=== PATIENT | female | born 2005 | race Caucasian/White ===

== ENCOUNTER 2025-01-02 17:38 | Outpatient (CLI) | payer OTHER, SELFPAY ==
[2025-01-02] VITALS (27 sets, daily range): BP systolic 131–157; BP diastolic 79–99; PULSE 95–113; O2SAT 97–100; BMI 45.8
--- OUTSIDE RECORDS SUMMARY | 2025-01-02 17:43 | XMS_ITS | Data Portability ---
Author Organization [place] [employer], Main Office Address [address] [place] [address] Assessment Encounter Date Assessment Date Assessment LastModified by Organization Details LastModified Time 01/04/2023 01/04/2023 RUQ tenderness, postprandial pain. US was unremarkable. Discussed options with patient. Will order HIDA scan and f/u after results obtained. Not available 01/04/2023 12:24:20 01/20/2023 01/20/2023 right upper quadrant pain associated with meals. HIDA scan does show a low ejection fraction of 8% associated with gallbladder and biliary dyskinesia. Options discussed with patient and family. We will schedule for robotic assisted possible open cholecystectomy . Risks and benefits were discussed. Risks include bleeding, infection bile duct, bowel injuries and bile leaks Not available 01/20/2023 11:51:21 Plan of Treatment Reminders Order Date Submit Date Provider Last Modified By Organization Details Last Modified Time Details Appointments None record ed. Lab None record ed. Referral None record ed. Procedures None record ed. Surgeries None record ed. Imaging None record ed. Medication Orders None record ed. Patient TargetsNo targets recorded. Patient InstructionsNo instructions recorded. Reason for Referral None Reported. Results Created Date Observation Date Name Description Value Unit Range Abnormal Flag Note LastModifiedBy Organization Detail LastModifiedTime 02/10/2002/09/2023 CBC/C OMPLE TE BLD COUNT W/DIF F white blood cells 8.0 x10'3 /uL 4.2-10 .8 Not Available [facility] (Lab) [address] [place], [address], 02/09/2023 06:58:43 02/10/2002/09/2023 CBC/C OMPLE TE BLD COUNT W/DIF F red blood cells 5.19 x10'6 /uL 3.80-5 .20 Not Available [facility] (Lab) [address] [facility] [place], [address], 02/09/2023 06:58:43 02/10/2002/09/2023 CBC/C OMPLE TE BLD COUNT W/DIF F hemoglobin 15.2 g/dL 12.0-1 5.6 Not Available [facility] (Lab) [address] [place], [address], 02/09/2023 06:58:43 02/10/20 23 02/09/2023 CBC/C OMPLE TE BLD COUNT W/DIF F hematocrit 45.4 % 35.7-4 5.7 Not Available [facility] (Lab) [address] [place], [address], 02/09/2023 06:58:43 02/10/2002/09/2023 CBC/C OMPLE TE BLD COUNT W/DIF F mean red cell volume 87.5 fL 82.0-9 9.0 Not Available [facility] (Lab) [address] [place], [address], 02/09/2023 06:58:43 02/10/2002/09/2023 CBC/C OMPLE TE BLD COUNT W/DIF F mean red cell hemoglobin 29.3 pg 27.0-3 3.0 Not Available [facility] (Lab) [address] [place], [address], 02/09/2023 06:58:43 02/10/2002/09/2023 CBC/C OMPLE TE BLD COUNT W/DIF F mean RBC HGB concentratio n 33.5 g/dL 31.0-3 6.0 Not Available [facility] (Lab) [address] [place], [address], 02/09/2023 06:58:43 02/10/2002/09/2023 CBC/C OMPLE TE BLD COUNT W/DIF F red cell distribution width 12.4 % 11.8-1 5.5 Not Available [facility] (Lab) [address] [place], [address], 02/09/2023 06:58:43 02/10/20 23 02/09/2023 CBC/C OMPLE TE BLD COUNT W/DIF F platelets 303 x10'3 /uL 150-40 0 Not Available [facility] (Lab) [address] [place], [address], 02/09/2023 06:58:43 02/10/2002/09/2023 CBC/C OMPLE TE BLD COUNT W/DIF F mean platelet volume 9.7 fL 9.0-12 .4 Not Available [facility] (Lab) [address] [place], [address], 02/09/2023 06:58:43 02/10/2002/09/2023 CBC/C OMPLE TE BLD COUNT W/DIF F neutrophils 44.1 % 39.0-7 2.0 Not Available [facility] (Lab) [address] [place], [address], 02/09/2023 06:58:43 02/10/2002/09/2023 CBC/C OMPLE TE BLD COUNT W/DIF F lymphocytes 45.6 % 16.0-4 7.0 Not Available [facility] (Lab) [address] [place], [address], 02/09/2023 06:58:43 02/10/2002/09/2023 CBC/C OMPLE TE BLD COUNT W/DIF F monocytes 5.0 % 5.0-12 .0 Not Available [facility] (Lab) [address] [place], [address], 02/09/2023 06:58:43 02/10/2002/09/2023 CBC/C OMPLE TE BLD COUNT W/DIF F eosinophils 3.9 % 1.0-7. 0 Not Available [facility] (Lab) [address] [place], [address], 02/09/2023 06:58:43 02/10/2002/09/2023 CBC/C OMPLE TE BLD COUNT W/DIF F basophils 1.0 % 0.0-2. 0 Not Available [facility] (Lab) [address] [place], [address], 02/09/2023 06:58:43 02/10/2002/09/2023 CBC/C OMPLE TE BLD COUNT W/DIF F immature granulocytes 0.4 % 0.00-0 .50 Not Available [facility] (Lab) [address] [place], [address], 02/09/2023 06:58:43 02/10/2002/09/2023 CBC/C OMPLE TE BLD COUNT W/DIF F neutrophils, absolute count 3.52 x10'3 /uL 1.5-8. 0 Not Available [facility] (Lab) [address] [place], [address], 02/09/2023 06:58:43 02/10/2002/09/2023 CBC/C OMPLE TE BLD COUNT W/DIF F lymphocytes, absolute count 3.64 x10'3 /uL 1.07-3 .43 high Not Available [facility] (Lab) [address] [place], [address], 02/09/2023 06:58:43 02/10/2002/09/2023 CBC/C OMPLE TE BLD COUNT W/DIF F monocytes, absolute count 0.40 x10'3 /uL 0.29-0 .99 Not Available [facility] (Lab) [address] [place], [address], 02/09/2023 06:58:43 02/10/20 23 02/09/2023 CBC/C OMPLE TE BLD COUNT W/DIF F eosinophils, absolute count 0.31 x10'3 /uL 0.02-0 .53 Not Available [facility] (Lab) [address] [place], [address], 02/09/2023 06:58:43 02/10/20 23 02/09/2023 CBC/C OMPLE TE BLD COUNT W/DIF F basophils, absolute count 0.08 x10'3 /uL 0.01-0 .08 Not Available [facility] (Lab) [address] [place], [address], 02/09/2023 06:58:43 02/10/20 23 02/09/2023 CBC/C OMPLE TE BLD COUNT W/DIF F immature granulocytes ,absolute 0.03 x10'3 /uL 0.00-0 .05 Not Available [facility] (Lab) [address] [place], [address], 02/09/2023 06:58:43 02/10/20 23 02/09/2023 CBC/C OMPLE TE BLD COUNT W/DIF F nucleated red blood cells 0.0 % -0 Not Available [facility] (Lab) [address] [place], [address], 02/09/2023 06:58:43 02/10/20 23 02/09/2023 CBC/C OMPLE TE BLD COUNT W/DIF F NRBC# 0.00 x10'3 /uL Not Available [facility] (Lab) [address] [place], [address], 02/09/2023 06:58:43 02/10/20 23 02/09/2023 URINE HCG QUAL/ POINT OF CARE ur preg NEGATI VE TESTI NG PERFO RMED BY SURGI CAROLYN SERVI THONY PERSO NNEL. Not Available [facility] (Lab) [address] [place], [address], 02/09/2023 07:03:22 02/10/20 23 02/09/2023 URINE HCG QUAL/ POINT OF CARE lot no. [id number] Not Available [facility] (Lab) [address] [place], [address], 02/09/2023 07:03:22 02/10/20 23 02/09/2023 URINE HCG QUAL/ POINT OF CARE pos QC POSITI VE Not Available [facility] (Lab) [address] [place], [address], 02/09/2023 07:03:22 02/10/2002/09/2023 URINE HCG QUAL/ POINT OF CARE neg QC NEGATI VE Not Available [facility] (Lab) [address] [place], [address], 02/09/2023 07:03:22 02/10/20 23 02/09/2023 COMPR EHENS LUISITO METAB OLIC PANEL sodium 141 mmol/ L 137-14 5 Not Available [facility] (Lab) [address] [place], [address], 02/09/2023 07:13:48 02/10/20 23 02/09/2023 COMPR EHENS LUISITO METAB OLIC PANEL potassium 4.0 mmol/ L 3.5-5. 1 Not Available [facility] (Lab) [address] [place], [address], 02/09/2023 07:13:48 02/10/20 23 02/09/2023 COMPR EHENS LUISITO METAB OLIC PANEL chloride 107 mmol/ L 98-107 Not Available [facility] (Lab) [address] [place], [address], 02/09/2023 07:13:48 02/10/20 23 02/09/2023 COMPR EHENS LUISITO METAB OLIC PANEL carbon dioxide 24 mmol/ L 22-30 Not Available [facility] (Lab) [address] [place], [address], 02/09/2023 07:13:48 02/10/2002/09/2023 COMPR EHENS LUISITO METAB OLIC PANEL anion gap 14.0 mmol/ L 14-22 Not Available [facility] (Lab) [address] [place], [address], 02/09/2023 07:13:48 02/10/20 23 02/09/2023 COMPR EHENS LUIISTO METAB OLIC PANEL glucose 89 mg/dL 70-99 Not Available [facility] (Lab) [address] [place], [address], 02/09/2023 07:13:48 02/10/20 23 02/09/2023 COMPR EHENS LUISITO METAB OLIC PANEL BUN 20 mg/dL 8-19 high Not Available [facility] (Lab) [address] [place], [address], 02/09/2023 07:13:48 02/10/20 23 02/09/2023 COMPR EHENS LUISITO METAB OLIC PANEL creatinine 0.60 mg/dL 0.30-1 .00 Not Available [facility] (Lab) [address] [place], [address], 02/09/2023 07:13:48 02/10/2002/09/2023 COMPR EHENS LUISITO METAB OLIC PANEL GFR >60 Refer ence Range : [place] ge GFR Healt hy Adult : >60 mL/mi n/1.7 3 m2 Chron ic Kidne y Disea se: 15-60 mL/mi n/1.7 3 m2 Kidne y Failu re: <15/m L/min /1.73 m2 www.n iddk. nih.g ov The MDRD study equat ion has not been valid ated in child kyle <18 years of age; pregn ant women ; the elder ly >85 years of age; or in some racia l or ethni c subgr oups, such as Hispa nics. Outsi de the valid ated nona eters , estim ated GFR is less accur ate, requi ring clini carolyn judgm ent on a case- by-ca se basis . Clini carolyn inter preta tion for other races and ages must be made by the clini elaine. The MDRD study equat ion has not been valid ated for the evalu ation of serum creat inine relat ed to nutri ravin l statu s or medic ation usage . For perso ns <18 years of age, a pedia tric GFR calcu lator is avail able on the [facility] websi te: https ://ww w.kid aicha.o rg/pr ofess ional s/kdo qi/gf r_cal culat or Not Available [facility] (Lab) [address] [place], [address], 02/09/2023 07:13:48 02/10/20 23 02/09/2023 COMPR EHENS LUISITO METAB OLIC PANEL alkaline phosphatase 48 U/L 38-126 Not Available [facility] (Lab) [address] [place], [address], 02/09/2023 07:13:48 02/10/20 23 02/09/2023 COMPR EHENS LUISITO METAB OLIC PANEL alanine aminotransfe rase 28 U/L 0-35 Not Available [facility] (Lab) [address] [place], [address], 02/09/2023 07:13:48 02/10/20 23 02/09/2023 COMPR EHENS LUISITO METAB OLIC PANEL aspartate aminotransfe rase 24 U/L 14-37 Not Available [facility] (Lab) [address] [place], [address], 02/09/2023 07:13:48 02/10/20 23 02/09/2023 COMPR EHENS LUISITO METAB OLIC PANEL bilirubin, total 0.50 mg/dL 0.20-1 .30 Not Available [facility] (Lab) [address] [place], [address], 02/09/2023 07:13:48 02/10/20 23 02/09/2023 COMPR EHENS LUISITO METAB OLIC PANEL calcium 9.5 mg/dL 8.4-10 .2 Not Available [facility] (Lab) [address] [place], [address], 02/09/2023 07:13:48 02/10/20 23 02/09/2023 COMPR EHENS LUISITO METAB OLIC PANEL total protein 7.4 g/dL 6.1-8. 0 Not Available [facility] (Lab) [address] [facility] [place], [address], 02/09/2023 07:13:48 02/10/20 23 02/09/2023 COMPR EHENS LUISITO METAB OLIC PANEL albumin 4.9 g/dL 3.4-5. 0 Not Available [facility] (Lab) [address] [place], [address], 02/09/2023 07:13:48 02/10/20 23 02/09/2023 COMPR EHENS LUISITO METAB OLIC PANEL globulin 2.5 g/dL 2.6-4. 2 low Not Available [facility] (Lab) [address] [place], [address], 02/09/2023 07:13:48 02/10/20 23 02/09/2023 COMPR EHENS LUISITO METAB OLIC PANEL A/G ratio 2.0 ratio 1.0-2. 0 Not Available [facility] (Lab) [address] [place], [address], 02/09/2023 07:13:48 12/31/19 23 12/27/2022 US, abdom en, limit ed No observ ation record ed. BARCODE Not Available 2022 15:47:47 01/14/20 23 01/13/2023 NM, hepat obili manuela scan, w/ CCK No observ ation record ed. [email or web address] [facility] [address] [place], [address], 01/13/2023 12:56:29 Result Notes None recorded. Problems Name Problem SNOMED Code Status Onset Date Resolution Date Notes Provider Name and Address Organization Details Recorded Time Abdominal pain 25764864 Active 023 Esteban dang MD [address], [address], [facility] 3 13:36:11 Biliary dyskinesia 164403242 Active 023 Esteban dang MD [address], [address], [facility] 3 13:59:47 Problem Notes None recorded. Procedures Surgical History Date Name Laterality Status Provider Name and Address Organization Details Recorded Time 02/10/20 Cholecystectomy completed Aliyah Higgins MA [facility] 02/21/2023 10:43:07 Imaging Results Imaging Date Name Status LastModified by Organization Details LastModified Time 12/27/2022 US, abdomen, limited completed BARCODE Information not available 12/30/2022 15:47:47 01/13/2023 NM, hepatobiliary scan, w/ CCK completed [email or web address] [facility] [address] [place], [address], 01/13/2023 12:56:29 Procedure Notes None recorded. Medical Equipment None Reported. Allergies No known drug allergies Medications Name Sig Start Date Stop Date Status Note LastModified by Organization Details LastModified Time binaxnow cov kit home teresa active Not Available Not Available Not Available oxycodone-acet aminophen 5 mg-325 mg tablet TAKE 1 TABLET BY MOUTH EVERY 4-6 HOURS NEEDED active Not Available Not Available No t Available pantoprazole 40 mg tablet,delayed release active Not Available Not Available Not Available albuterol sulfate HFA 90 mcg/actuation aerosol inhaler INHALE 2 PUFFS BY MOUTH EVERY 4 TO 6 HOURS active Not Available Not Available No t Available BinaxNOW COVID-19 Ag Self Test kit TEST DIRECTED TODAY active Not Available Not Available No t Available Vitals Date Recorded Heart rate Oxygen saturation Oxygen saturation in Arterial blood by Pulse oximetry Respiratory rate Body height Body mass index (BMI) Percentile per age and sex Body mass index (BMI) Body weight Body temperature Systolic blood pressure Diastolic blood pressure Provider Name and Address Organization Details Last Updated DateTime 3 75 /min 98 % 98 % 14 /min 167.64 cm 98 % 36.5 kg/m2 981039. 88 g 98 [degF] 120 mm[Hg] 74 mm[Hg] [facility] [employer] [facility] 11:45:01 Date Recorded Body height Body mass index (BMI) Body mass index (BMI) Percentile per age and sex Body weight Body temperature Heart rate Respiratory rate Oxygen saturation Oxygen saturation in Arterial blood by Pulse oximetry Systolic blood pressure Diastolic blood pressure Provider Name and Address Organization Details Last Updated DateTime 3 167.64 cm 36.5 kg/m2 98 % 903169. 88 g 98 [degF] 75 /min 14 /min 98 % 98 % 120 mm[Hg] 74 mm[Hg] [facility] [employer] [facility] 3 11:22:24 Social History None recorded. Functional Status None recorded. Mental Status None recorded. Family History Relationship Description Onset Age of this Age Resolved Age Notes LastModified by Organization Details LastModified Time Mother Cholecystect tasha lund [email or web address] Not available 01/04/2023 11:46:10 Medical History Condition Response HEADACHES/MIGRAINES Y ASTHMA Y Gynecological HistoryNo gynecological history recorded. Obstetrics History GPAL:G 0 P 0 0 0 0 Past Encounters Encounter ID Performer Location Encounter Start Date Encounter Closed Date Diagnosis/Indication Diagnosis SNOMED-CT Code Diagnosis ICD10 Code Diagnosis Note [id number] [facility] [address] [facility] [address] [address] 01/04/2023 11:25:29 01/04/2023 12:32:38 Abdominal pain 61141453 R10.9 [id number] [facility] [address] [facility] [address] [address] 01/20/2023 11:19:18 01/20/2023 12:04:56 Biliary dyskinesia 808932619 K82.8 Health Concerns Section Related Observation LastModified by Organization Detai ls LastModified Time None Recorded Concern Status LastModified by Organization Details LastModified Time None Recorded Advance Directives Directive None Recorded Payers Encounter Date Sequence Insurance Name Policy Number Policy Perez Covered Member ID Perez Member ID Guarantor Name 01/04/2023 1 [facility] (MEDICAID REPLACEMENT - HMO) [id number] Irina Garcia [id number] Irina Garcia 01/20/2023 1 [facility] (MEDICAID REPLACEMENT - HMO) [id number] Irina Garcia [id number] Irina Garcia Notes Date Note Type Note Provider Name and Address Organization Details Recorded Time 01/04/2023 text/html Pt presents to clinic to discuss abdominal pain. Reports pain after meals, nearly anything she eats causes upper mid and R -sided abdominal pain. Reports diarrhea. Denies nausea/vomiting. Denies fevers. Denies sick contacts. Reports this has been ongoing for about one year, but worsening over the past two weeks. US unremarkable. Esteban Sandoval MD [address], [place], [address], [facility] 01/04/2023 13:36:20 01/20/2023 text/html patient continue s to have right upper quadrant pain associated with meals. Has been there for approximately a month. Has had a weight loss of approximately 80 lb in the last Few months secondary to improve diet. Denies nausea vomiting fevers chills or any other constitutional symptoms Esteban Sandoval MD [address], [place], [address], [facility] 01/20/2023 14:00:13 OBGyn Episode No OBEpisode recorded.
--- OUTSIDE RECORDS SUMMARY | 2025-01-02 17:43 | XMS_ITS | Clinical Summary ---
Author Organization [facility] Address [address] [place] [address] Phone Care Team Providers Care Spring Assembler Supervisor Name Role Phone Lashon Rees MD Primary Care Provider [phone] Allergies Active Allergy Reactions Criticality Noted Date Comments Cefprozil Vomiting High 10/11/2009 Medications albuterol 1.25 MG/3ML IN NEBUIndications :Cough take 3 mL by inhalation every 6 hours as needed for Wheezing. 30 Vial 0 2 Active albuterol (2.5 MG/3ML) 0.083% IN NEBUIndications :Cough 3 mL by Nebulization route every 6 hours as needed for Cough. 30 Vial 0 3 Active cetirizine (ZYRTEC CHILDRENS ALLERGY) 1 MG/ML PO SYRP Take 10 mg by mouth daily. Active fluticasone 50 MCG/ACT NA SUSP 1 [place] by Nasal route 2 times daily. Use in each nostril as directed. 1 Bottle 5 3 Active Additional Information Patient not taking.Reported on 05/07/2017 montelukast (SINGULAIR) 10 MG PO TABS Take 10 mg by mouth every evening. Active IBUPROFEN PO Take by mouth. Ac tive acetaminophen (TYLENOL) 325 MG Tablet Take 15 mg/kg by mouth every 4 hours as needed. Active azithromycin (ZITHROMAX) 250 MG TabletIndicatio ns:Cough 2 tab(s) daily for 1 day, then 1 tab(s) daily for days 2-5. 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 Gender Identity Not on file Sexual Orientation Not on file Last Filed Vital Signs Vital Sign Reading Time Taken Comments Blood Pressure 121/66 05/07/2017 4:37 PM CDT Pulse 113 05/07/2017 4:37 PM CDT Temperature 36.8 C (98.2 F) 05/07/2017 4:37 PM CDT Respiratory Rate 20 05/07/2017 4:37 PM CDT Oxygen Saturation 96% 05/07/2017 4:37 PM CDT Inhaled Oxygen Concentration - - Weight 95.3 kg (210 lb) 05/07/2017 4:37 PM CDT Height 166.4 cm (5' 5.5 ) 05/07/2017 4:37 PM CDT Body Mass Index 34.41 05/07/2017 4:37 PM CDT Plan of Treatment Health Maintenance Due Date Last Done Comments Hepatitis C Virus (HCV) Screening 2004 TdaP Immunization 2004 Human Papillomavirus (HPV) Immunization (1 - 3-dose series) 2019 Meningococcal B Immunization (1 of 2 - Standard) 2020 Hepatitis B Immunization (1 of 3 - 19+ 3-dose series) 2023 Influenza Immunization (#1) 2024 SARS-COV-2 Immunization ( - 2023- season) 2024 Respiratory Syncytial Virus (RSV) Immunization (Adult) (1 - 1-dose 75+ series) 2079 Meningococcal Immunization (ACWY) Aged Out No longer eligible based on patient's age to complete this topic Pneumococcal Immunization Combined Aged Out No longer eligible based on patient's age to complete this topic Rotavirus Immunization Aged Out No lo nger eligible based on patient's age to complete this topic Insurance [place] Sub[place] Plan / Payer ( fective 2017-Present) Name:Irina Ramos Relation to Subscriber:Self Name:Irina Ramos Payer ID:[id number] Group ID:Not on file Type:Not on file Address: [place] [id number] Care Teams Spring Assembler Supervisor Relationship Specialty Start Date End Date Lashon Rees MD [address] [address] PCP - General 10/11/09
--- OUTSIDE RECORDS SUMMARY | 2025-01-02 17:44 | XMS_ITS | Clinical Summary ---
Author Organization [facility] Address [address] [place] [address] Care Team Providers Care Reaming Press Operator Name Role Phone Unavailable Primary Care Provider Unavailabl e Source Comments [facility],non-owned Affiliates and Associated Physician Practices is amultiple site organization consisting of ambulatory clinics and hospital sitesin [place], [place], [place] and [place]. This disclosure is being madepursuant to the Care Everywhere program and may not contain all information available regarding this patient. Last updated 18.[facility] Allergies No known active allergies Encounters Date Type Department Care Team Description 12/28/2024 8:15 AM CDT - 12/28/2024 11:59 PM CDT Hospital Encounter [facility] [address] [place] [id number] Desean Allen MD Discharge Disposition: Home or Self Care from Last 3 Months Social History Tobacco Use Types Packs/Day Years Used Date Smoking Tobacco: Never Assessed Estimated Date of Delivery Comme nts Yes 05/06/2025 Based on Ultraso und Sex and Gender Information Value Date Recorded Sex Assigned at Not on file Gender Identity Not on file Sexual Orientation Not on file Plan of Treatment Upcoming Encounters Date Type Department Care Team (Late st Contact Info) Description 01/25/2025 8:15 AM CDT Appointment [facility] [address] [place] [address] Health Maintenance Due Date Last Done Comments HIV SCREENING 2019 HPV VACCINE (1 - 3-dose series) 2019 CHLAMYDIA/GONORRHEA SCREENING 2020 MENINGOCOCCAL (Group B) VACCINE SHARED DECISION-MAKING (1 of 2 - Standard) 2020 HEPATITIS C SCREENING 08/23/2022 DTAP/TDAP/TD VACCINES (1 - Tdap) 2023 HEPATITIS B VACCINE (1 of 3 - 19+ 3-dose series) 2023 COVID-19 VACCINE (1 - 2023-2 5 season) 2024 INFLUENZA VACCINE (#1) 2024 6, 08/19/2005, 07/08/2005 DEPRESSION SCREENING 10/03/2024 ZOSTER VACCINE (1 of 2) 2054 HIB VACCINE Aged Out No longer eligi ble based on patient's age to complete this topic MENINGOCOCCAL GROUPS A/C/Y/W VACCINE Aged Out No longer eligible b ased on patient's age to complete this topic PNEUMOCOCCAL VACCINE Aged Out No long er eligible based on patient's age to complete this topic Respiratory Syncytial Virus (RSV) Vaccine Pt: or over 60 yrs (No Doses Required) Completed Procedures Procedure Name Priority Date/Time Associated Diagnosis Comments SONOGRAM - COMPLETE Routine 12/28/2024 8 :17 AM CDT Obesity affecting , antepartum, unspecified obesity type Encounter for anatomic survey 21 weeks gestation of from Last 3 Months Results * SONOGRAM - COMPLETE (12/28/2024 8:17 AM CDT) Linked Results Indication ======== Obesity in , Class III (BMI 44) History ====== OB History 1 Lab Tests Test Date Result Not performed Maternal Assessment Physical Exam Height 170 cm, 5 ft 7 in. Weight 133 kg, 294 lb. Initial weight 129 kg, 284 lb. BMI 46.05 kg/m . Initial BMI 44.48 kg/m . Weight gain 5 kg, 10 lb Method ====== Transabdominal and transvaginal ultrasound. View: Suboptimal view: limited by maternal body habitus ========= Durán . Number of fetuses: 1 Dating ====== Date Details Gest. age ROCKY LMP 08/05/2024 20 w + 5 d 05/12/2025 U/S 12/28/2024 based upon AC, BPD, Femur, HC 21 w + 0 d 05/10/2025 Assigned dating based on the LMP, selected on 12/28/2024 20 w + 5 d 05/12/2025 General Evaluation Cardiac activity present. FHR 152 bpm. Presentation: cephalic Placenta: Placental site: anterior Umbilical cord: Cord vessels: 3 vessel cord. Insertion site: normal insertion Amniotic fluid: Amount of AF: normal. MVP 4.8 cm Biometry BPD 50.1 mm 21w 1d 68% Hadlock HC 187.6 mm 21w 0d 58% Hadlock Cerebellum tr 22.7 mm 91% [place] Nuchal fold 4.4 mm AC 161.0 mm 21w 1d 60% Hadlock Femur 34.5 mm 20w 6d 47% Hadlock Humerus 37.4 mm 23w 1d 98% Michael HC / AC 1.17 19w 3d 59% Hadlock Weight Calculation: EFW 396 g 63% Hadlock EFW (lb,oz) 0 lb 14 oz EFW by Hadlock ([id number]) appropriate Growth Overview Exam date GA BPD (mm) HC (mm) AC (mm) FL (mm) HL (mm) EFW (g) 12/28/2024 20w 5d 50.1 68% 187.6 58% 161 60% 34.5 47% 37.4 98% 396 63% Anatomy The following structures appear normal: Head / Neck Cranium. Lateral ventricles. Choroid plexus. Midline falx. Cavum septi pellucidi. Cerebellum. Cisterna magna. Thalami. Nuchal fold. Heart / Thorax Situs. Abdomen Cord insertion. Stomach. Kidneys. Bladder. Bowel. Genitals. Extremities / Skeleton Arms. Right hand. Legs. Feet. The following structures could not be adequately visualized: Face Lips. Profile. Nose. Orbits. Heart / Thorax 4-chamber view. RVOT view. LVOT view. 3-vessel view. 4-amvhcm-lxawbes view. Aortic arch view. Bicaval view. Ductal arch view. Interventricular septum. Great vessels. Right lung. Left lung. Diaphragm. Spine Cervical spine. Thoracic spine. Lumbar spine. Sacral spine. Extremities / Skeleton Left hand. sex: female. Maternal Structures Cervix reassuring Approach - Transvaginal: Cervical length 4.00 cm Right Ovary Not visualized Appearance: Adnexa appears normal Left Ovary Not visualized Appearance: Adnexa appears normal Impression ========= Single live intrauterine at 20w 5d The size is appropriate. The amniotic fluid volume is normal. The transvaginal cervical length is reassuring. No major malformations were seen within the limitations of ultrasound however visualization was limited. Follow-up ======== Follow up ultrasound in 4 weeks for growth and to complete anatomic survey Coding ====== Procedures 94723: US Preg Uterus Detailed 65966: US Preg Uterus Transvaginal [facility] [employer] PACS Anatomical Region Laterality Modality Other 12/28/2024 8:17 AM CDT Niki Natarajan MD [facility] ORDERABLES from Last 3 Months Irina Garcia Personal/Family Self 2005
--- OUTSIDE RECORDS SUMMARY | 2025-01-02 17:44 | XMS_ITS | Data Portability ---
Author Organization [facility], [address] [facility] ([place]) Address [address] [address] Care Team Providers Care Pony Trimmer Name Role Phone SUZANNE MEDINA Primary Care Provider [phone] Assessment Encounter Date Assessment Date Assessment LastModified by Organization Details LastModified Time 09/05/2024 09/05/2024 1. Discussed the patient s . She is currently just using her albuterol as needed. No other medications. We discussed foods to avoid, medications to avoid, etc. Discussed obviously I do not provide COMPENSATION AND BENEFITS ADMINISTRATOR care and she would like to be seen in [facility]. We will go ahead and place a referral but encouraged her that she would be able to likely call for an appointment as well. 2. Discussed precautions with the patient and gave them signs and symptoms to look out for and precautions on when to call the clinic or go to the emergency department. RADHA [email or web address] Not available 09/05/2024 21:12:21 Plan of Treatment Reminders Order Date Submit Date Provider Last Modified By Organization Details Last Modified Time Details Appointments None recorded. Lab test, urine 2023 024 [email or web address] 3 [facility], [facility] [address], [address], 4 16:36:43 Referral obstetricia n and gynecologis t referral [facility], [address], [place], [address], 4 17:16:09 Procedures None recorded. Surgeries None recorded. Imaging None recorded. Medication Orders None recorded. Patient TargetsNo targets recorded. Patient InstructionsNo instructions recorded. Reason for Referral Inspector [facility] And Gynecologis t Referral for test positive Referring Physician: Suzanne Medina, Family Medicine, Encounter Date: 09/05/2024 Results Created Date Observation Date Name Description Value Unit Range Abnormal Flag Note LastModifiedBy Organization Detail LastModifiedTime 09/05/20 24 09/05/2024 pregn jacklyn test, urine urine POSITI VE negati ve abnormal (SENS ITIVI TY >99%) (SPEC IFICI TY >99%) Not Available [facility] [address] [place] [address], [address], 09/05/2024 16:23:39 09/11/20 24 09/11/2024 beta- HCG, quant itati ve, serum or plasm a beta-HCG quantitative 03927 mIU/m L 0-5 mIU/m L Negat julianne for pregn jacklyn 6-24 mIU/m L Indet ermin ate >25 mIU/m L Posit julianne for pregn jacklyn Not Available [facility] [address] [place] [address], [address], 09/11/2024 15:55:51 09/13/20 24 09/13/2024 beta- HCG, quant itati ve, serum or plasm a beta-HCG quantitative 33602 mIU/m L 0-5 mIU/m L Negat julianne for pregn jacklyn 6-24 mIU/m L Indet ermin ate >25 mIU/m L Posit julianne for pregn jacklyn Not Available [facility] [address] [place] [address], [address], 09/13/2024 15:37:10 09/17/20 24 09/17/2024 beta- HCG, quant itati ve, serum or plasm a beta-HCG quantitative 15132 mIU/m L 0-5 mIU/m L Negat julianne for pregn jacklyn 6-24 mIU/m L Indet ermin ate >25 mIU/m L Posit ujlianne for pregn jacklyn Not Available [facility] [address] [place] [address], [place], [address], 09/17/2024 15:41:53 Result Notes None recorded. Problems Name Problem SNOMED Code Status Onset Date Resolution Date Notes Provider Name and Address Organization Details Recorded Time Heart murmur 40215162 Active 024 Suzanne Medina MD [address] [place] [address], [phone] , [facility] 4 16:31:56 Obesity 735239296 Active 024 [facility] 17:06:50 Weight gain 5132289 Active 024 [facility] 4 17:07:07 Problem Notes None recorded. Medical Equipment None Reported. Allergies No known drug allergies Medications Name Sig Start Date Stop Date Status Note LastModified by Organization Details LastModified Time fluconazole 100 mg tablet 09/05 completed Not Available Not Available Not Available phentermine 15 mg capsule TAKE 1 CAPSULE BY MOUTH DAILY IN THE MORNING 09/05 completed Not Available Not Available Not Available pantoprazol e 40 mg tablet,joe yed release TAKE 1 TABLET BY MOUTH DAILY 09/05 completed Not Available Not Available Not Available nystatin 100,000 unit/gram topical cream APPLY TOPICALLY TO THE AFFECTED AREA TWICE DAILY 09/05 completed Not Available Not Available Not Available polymyxin B sulfate 10,000 unit-trimet hoprim 1 mg/mL eye drops INSTILL 1 DROP IN RIGHT EYE EVERY 3 HOURS FOR 10 DAYS 09/05 completed Not Available Not Available Not Available mupirocin 2 % topical ointment APPLY THIN LAYER TOPICALLY TO THE AFFECTED AREA THREE TIMES DAILY FOR 7 TO 10 DAYS 09/05 completed Not Available Not Available Not Available albuterol sulfate HFA 90 mcg/actuati on aerosol inhaler INHALE 2 PUFFS BY MOUTH EVERY 4-6 HOURS active Not Available Not Available No t Available Vitals Date Recorded Body height Body mass index (BMI) Body mass index (BMI) Percentile per age and sex Body weight Body temperature Respiratory rate Oxygen saturation Oxygen saturation in Arterial blood by Pulse oximetry Heart rate Systolic blood pressure Diastolic blood pressure Provider Name and Address Organization Details Last Updated DateTime 170.18 cm 41.8 kg/m2 99 % 313505. 16 g 97.9 [degF] 20 /min 99 % 99 % 102 /min 128 mm[Hg] 80 mm[Hg] Charlee Barbour [facility] 16:15:39 Social History None recorded. Functional Status None recorded. Mental Status None recorded. Family History Nothing Reported. Medical History No medical history recorded. Gynecological HistoryNo gynecological history recorded. Obstetrics History GPAL:G 0 P 0 0 0 0 Immunizations Vaccine Type Date Status Note Provider Nam e and Address Organization Details Recorded Time Hib, unspecified formulation 5 completed Charlee Barbour [facility] 09/05/2024 16:15:45 Hib, unspecified formulation 5 completed Charlee Barbour [facility] 09/05/2024 16:15:45 Hib, unspecified formulation 5 completed Charlee Barbour [facility] 09/05/2024 16:15:45 MMR 9 completed Charlee Barbour [facility] 09/05/2024 16:15:45 MMR 5 completed Charlee Barbour [facility] 09/05/2024 16:15:45 pneumococcal conjugate PCV 7 5 completed Charlee Barbour [facility] 09/05/2024 16:15:45 pneumococcal conjugate PCV 7 5 completed Charlee Barbour [facility] 09/05/2024 16:15:45 pneumococcal conjugate PCV 7 5 completed Charlee Barbour [facility] 09/05/2024 16:15:45 pneumococcal conjugate PCV 7 5 completed Charlee Barbour [facility] 09/05/2024 16:15:45 DTaP-IPV 9 completed Charlee Barbour [facility] 09/05/2024 16:15:45 influenza, unspecified formulation 5 completed Charlee Barbour null, [facility] 09/05/2024 16:15:45 influenza, unspecified formulation 5 completed Charlee Barbour null, [facility] 09/05/2024 16:15:45 Tdap 6 completed [facility]/05/[facility]24 16:15:45 Tdap 3 completed [facility] 09/05/2024 16:15:45 varicella 6 completed [facility] 09/05/2024 16:15:45 varicella 9 completed [facility] 09/05/2024 16:15:45 Influenza, split virus, trivalent, preservative 6 completed [facility] 09/05/2024 16:15:45 Meningococcal MCV4O 2 completed [facility] 09/05/2024 16:15:45 meningococcal MCV4P 6 completed [facility] 09/05/2024 16:15:45 DTaP 6 completed [facility]/05/2024 16:15:45 DTaP-Hep B-IPV 5 completed Charlee Barbour null, [facility] 09/05/2024 16:15:45 DTaP-Hep B-IPV 5 completed Charlee Barbour null, [facility] 09/05/2024 16:15:45 DTaP-Hep B-IPV 5 completed [facility]24 16:15:45 Past Encounters Encounter ID Performer Location Encounter Start Date Encounter Closed Date Diagnosis/Indication Diagnosis SNOMED-CT Code Diagnosis ICD10 Code Diagnosis Note [id number] Suzanne Medina MD [facility] ([place]) [address] [place] [address] 09/05/2024 16:07:20 09/05/2024 16:52:01 Amenorrhea 15883203 N91.2 test positive 240678443 Z32.01 Health Concerns Section Related Observation LastModified by Organization Detai ls LastModified Time None Recorded Concern Status LastModified by Organization Details LastModified Time None Recorded Advance Directives Directive None Recorded Payers Encounter Date Sequence Insurance Name Policy Number Policy Perez Covered Member ID Perez Member ID Guarantor Name 09/05/2024 1 *SELF PAY* [id number] HanksGarcia Notes Date Note Type Note Provider Name and Address Organization Details Recorded Time 09/05/2024 text/html The patient is here today because she had a positive home test on 09/02/24. She thinks she started her last period around 07/31/24. She is feeling well and denies any concerns. Suzanne Medina MD [address] [place] [address], [phone], [facility] 09/10/2024 15:04:09 OBGyn Episode No OBEpisode recorded.
[2025-01-02 18:10] LABS: Add Urine Microscopic? YES; Appearance Urine Clear (Clear); Bacteria Urine 1+ /hpf; Bilirubin Urine Negative (Negative); Blood Urine Negative (Negative); Color Urine Yellow (Yellow); Glucose Urine UA Negative (Negative); Ketones Urine Trace mg/dL (Negative); Leukocyte Esterase Ur Trace LEU/UL (Negative); Nitrate Urine Negative (Negative); Non Pathogenic Casts 0-2; Protein Urine Negative (Negative); RBC Urine 0-2 /hpf (0-2); Specific Grav Ur 1.012 (1.001-1.035); Squamous Epithelial Cell Urine Occasional /hpf (Few); Urobilinogen Urine 0.2 mg/dL (<2.0); WBC Urine 0-5 /hpf (0-3); pH Urine 6.5 (5.0-9.0)
[2025-01-02 18:15] LABS: Creatinine Urine 44.9 mg/dL; Total Protein Urine Random 11 mg/dL; Ur Ttl Prot Creatinine Ratio 0.24 mg/mg (0-0.20)
[2025-01-02 18:26] LABS: Basophils Absolute Auto 0.1 K/mm3 (0.0-0.1); Basophils Percent Auto 0.4 % (0.2-1.2); Eosinophils Absolute Auto 0.4 K/mm3 (0-0.3); Eosinophils Percent Auto 3.3 % (0-4.4); Hematocrit 33.8 % (37.0-47.0); Hemoglobin 11.9 g/dL (12.0-15.0); Immature Granulocyte Absolute 0.09 K/mm3 (0.00-0.031); Immature Granulocyte Percent A 0.8 % (0-0.5); Lymphocytes Absolute Auto 2.65 K/mm3 (0.9-3.2); Lymphocytes Percent Auto 23.3 % (18.3-44.2); Mean Corpuscular HGB Conc 35.2 g/dl (32-36); Mean Corpuscular Hemoglobin 29.5 pg (26-34); Mean Corpuscular Volume 83.9 fl (80-100); Monocytes Absolute Auto 0.6 K/mm3 (0.1-0.6); Monocytes Percent Auto 5.1 % (2.6-8.5); Neutrophils Absolute Auto 7.6 K/mm3 (1.3-6.7); Neutrophils Percent Auto 67.1 % (45.5-73.1); Platelet Count Result 238 k/mm3 (150-375); Red Blood Count 4.03 M/mm3 (4.2-5.4); Red Cell Distribution Width 13.2 % (11.5-14.5); White Blood Count 11.4 K/mm3 (4.5-10.0)
[2025-01-02 18:36] LABS: Alanine Aminotransferase 12 U/L (6-35); Alkaline Phosphatase 54 U/L (38-126); Anion Gap 13 mmol/L (4-12); Aspartate Amino Transferase 16 U/L (14-36); Bilirubin,Total 0.4 mg/dL (0.2-1.3); Blood Urea Nitrogen 7 mg/dL (7-17); Calcium 9.4 mg/dL (8.4-10.2); Carbon Dioxide 17 mmol/L (22-30); Chloride 108 mmol/L (98-107); Estimated Glomerular Filt Rate > 60; Glucose 84 mg/dL (65-110); Potassium 3.7 mmol/L (3.4-5.0); Sodium 138 mmol/L (137-145); Uric Acid 3.7 mg/dL (2.5-7.5)
--- NOTE | 2025-01-02 18:49 | PC.NURSE ---
Called Dr. Natarajan, update on pt, blood pressure, headache 5 out of 10 not resolved with Tylenol, and spots in vision. Orders received to administer labetalol 200 mg, Tylenol 1000 mg, recheck blood pressure after 30 minutes, send prescription for labetalol 200 mg BID 90 tablets, instructions the office will call to make an appointment with MFM, and schedule a blood pressure check in the office next week.
[2025-01-02] MEDS: ACETAMINOPHEN 500 MG TABLET 1000 MG PO (19:15)
[2025-01-02] MEDS: LABETALOL HCL 100 MG TABLET 200 MG PO (19:15)
--- NOTE | 2025-01-02 20:02 | PC.NURSE ---
Called Dr. Natarajan, update on blood pressure, orders received to discharge pt with prescription for labetalol 200 mg BID 90 tablets, instructions for 24 hour urine collection, the office will call tomorrow to schedule an appointment with MFM, make an appointment with the office in a week for blood pressure check, instructions to keep next scheduled appointment, and when to return to the unit.
--- NOTE | 2025-01-02 20:21 | PC.NURSE ---
Pt discharged with prescription for labetalol 200 mg BID 90 tablets, instructions for 24 hour urine collection, the office to call tomorrow to schedule an appointment with MFM, make an appointment with the office in a week for blood pressure check, instructions to keep next scheduled appointment, and when to return to the unit, pt verbalizes understanding.
== END 2025-01-02 20:21 | disposition home or self-care (01) ==
LOC: ANHOBOP 17:52 → ANHOBPP 17:56
PROVIDERS: PCP Family Medicine; Visit Provider Student in an Organized Health Care Education/Training Program
DX: O13.9 Gestational [pregnancy-induced] hypertension without significant proteinuria, unspecified trimester (principal); Z3A.00 Weeks of gestation of pregnancy not specified
CPT/HCPCS: 36415; 80053; 81001; 82570; 84156; 84550; 85025; 99199; A9270

== ENCOUNTER 2025-01-04 08:43 | Outpatient (CLI) | payer OTHER, SELFPAY ==
[2025-01-04 08:43] VITALS: BMI 45.7
--- OUTSIDE RECORDS SUMMARY | 2025-01-04 08:50 | XMS_ITS | Clinical Summary ---
Author Organization [facility] Address [address] [place] [address] Care Team Providers Care Swaging Machine Adjuster Name Role Phone Unavailable Primary Care Provider Unavailabl e Source Comments [facility],non-owned Affiliates and Associated Physician Practices is amultiple site organization consisting of ambulatory clinics and hospital sitesin [place], [place], [place] and [place]. This disclosure is being madepursuant to the Care Everywhere program and may not contain all information available regarding this patient. Last updated 18.[facility] Allergies No known active allergies Encounters Date Type Department Care Team Description 12/28/2024 8:15 AM CDT - 12/28/2024 11:59 PM CDT Hospital Encounter [facility] [address] [place] [id number] Desean Allen MD Discharge Disposition: Home or [...] Info) Description 01/25/2025 8:15 AM CDT Appointment [facility] [address] [place] [address] Health Maintenance Due Date Last Done Comments HIV SCREENING 2019 HPV VACCINE (1 - 3-dose series) 2019 CHLAMYDIA/GONORRHEA SCREENING 2020 MENINGOCOCCAL (Group B) VACCINE SHARED DECISION-MAKING (1 of 2 - Standard) 2020 HEPATITIS C SCREENING 08/23/2022 DTAP/TDAP/TD VACCINES (1 - Tdap) 2023 HEPATITIS B VACCINE (1 of 3 - 19+ 3-dose series) 2023 COVID-19 VACCINE (1 2023-2 5 season) 2024 DEPRESSION SCREENING 10/03/2024 OB-ONE HOUR GLUCOSE 01/28/2025 INFLUENZA VACCINE (Season Ended) 2025 07/28/2006, 08/19/2005, 07/08/2005 ZOSTER VACCINE (1 of 2) 2054 HIB [...] 0 lb 14 oz EFW by Hadlock ([id number]) appropriate Growth Overview Exam date GA BPD [...] view. RVOT view. LVOT view. 3-vessel view. 7-hyfrsz-rupebtu view. Aortic arch view. Bicaval view. Ductal [...] to complete anatomic survey Coding ====== Procedures 61912: US Preg Uterus Detailed 21576: US Preg Uterus Transvaginal [employer] PACS Anatomical Region Laterality Modality Other 12/28/2024 8:17 AM CDT Niki Natarajan MD [facility] ORDERABLES from Last 3 Months Irina Garcia Personal/Family Self 2005
--- OUTSIDE RECORDS SUMMARY | 2025-01-04 08:50 | XMS_ITS | Clinical Summary ---
Author Organization [facility] Address [address] [place] [address] Phone Care Team Providers Care Cafe Aide Name Role Phone Lashon Rees MD Primary Care Provider [phone] Allergies Active Allergy Reactions Criticality Noted Date [...] Active fluticasone 50 MCG/ACT NA SUSP 1 [place] by Nasal route 2 times daily. Use [...] on file Legal Sex Female 3:52 AM [employer] Gender Identity Not on file Sexual Orientation [...] ID:Not on file Type:Not on file Address: [place] [phone] Care Teams Cafe Aide Relationship Specialty Start Date End Date Lashon Rees MD [address] [address] PCP - General 10/11/09
--- OUTSIDE RECORDS SUMMARY | 2025-01-04 08:50 | XMS_ITS | Data Portability ---
Author Organization [place] [facility], Main Office Address [address] [place] [address] Assessment Encounter Date Assessment Date Assessment LastModified [...] 8.0 x10'3 /uL 4.2-10 .8 Not Available [facility] (Lab) [address] [place], [address], 02/09/2023 06:58:43 02/10/2002/09/2023 CBC/C OMPLE TE BLD COUNT W/DIF F red blood cells 5.19 x10'6 /uL 3.80-5 .20 Not Available [facility] (Lab) [address] [facility] [place], [address], 02/09/2023 06:58:43 02/10/2002/09/2023 CBC/C OMPLE TE BLD COUNT W/DIF F hemoglobin 15.2 g/dL 12.0-1 5.6 Not Available [facility] (Lab) [address] [place], [address], 02/09/2023 06:58:43 02/10/20 23 02/09/2023 CBC/C OMPLE TE BLD COUNT W/DIF F hematocrit 45.4 % 35.7-4 5.7 Not Available [facility] (Lab) [address] [place], [address], 02/09/2023 06:58:43 02/10/2002/09/2023 CBC/C OMPLE TE BLD COUNT W/DIF F mean red cell volume 87.5 fL 82.0-9 9.0 Not Available [facility] (Lab) [address] [place], [address], 02/09/2023 06:58:43 02/10/2002/09/2023 CBC/C OMPLE TE BLD COUNT W/DIF F mean red cell hemoglobin 29.3 pg 27.0-3 3.0 Not Available [facility] (Lab) [address] [place], [address], 02/09/2023 06:58:43 02/10/2002/09/2023 CBC/C OMPLE TE BLD COUNT W/DIF F mean RBC HGB concentratio n 33.5 g/dL 31.0-3 6.0 Not Available [facility] (Lab) [address] [place], [address], 02/09/2023 06:58:43 02/10/2002/09/2023 CBC/C OMPLE TE BLD COUNT W/DIF F red cell distribution width 12.4 % 11.8-1 5.5 Not Available [facility] (Lab) [address] [place], [address], 02/09/2023 06:58:43 02/10/20 23 02/09/2023 CBC/C OMPLE TE BLD COUNT W/DIF F platelets 303 x10'3 /uL 150-40 0 Not Available [facility] (Lab) [address] [place], [address], 02/09/2023 06:58:43 02/10/2002/09/2023 CBC/C OMPLE TE BLD COUNT W/DIF F mean platelet volume 9.7 fL 9.0-12 .4 Not Available [facility] (Lab) [address] [place], [address], 02/09/2023 06:58:43 02/10/2002/09/2023 CBC/C OMPLE TE BLD COUNT W/DIF F neutrophils 44.1 % 39.0-7 2.0 Not Available [facility] (Lab) [address] [place], [address], 02/09/2023 06:58:43 02/10/2002/09/2023 CBC/C OMPLE TE BLD COUNT W/DIF F lymphocytes 45.6 % 16.0-4 7.0 Not Available [facility] (Lab) [address] [place], [address], 02/09/2023 06:58:43 02/10/2002/09/2023 CBC/C OMPLE TE BLD COUNT W/DIF F monocytes 5.0 % 5.0-12 .0 Not Available [facility] (Lab) [address] [place], [address], 02/09/2023 06:58:43 02/10/2002/09/2023 CBC/C OMPLE TE BLD COUNT W/DIF F eosinophils 3.9 % 1.0-7. 0 Not Available [facility] (Lab) [address] [place], [address], 02/09/2023 06:58:43 02/10/2002/09/2023 CBC/C OMPLE TE BLD COUNT W/DIF F basophils 1.0 % 0.0-2. 0 Not Available [facility] (Lab) [address] [place], [address], 02/09/2023 06:58:43 02/10/2002/09/2023 CBC/C OMPLE TE BLD COUNT W/DIF F immature granulocytes 0.4 % 0.00-0 .50 Not Available [facility] (Lab) [address] [place], [address], 02/09/2023 06:58:43 02/10/2002/09/2023 CBC/C OMPLE TE BLD COUNT W/DIF F neutrophils, absolute count 3.52 x10'3 /uL 1.5-8. 0 Not Available [facility] (Lab) [address] [place], [address], 02/09/2023 06:58:43 02/10/2002/09/2023 CBC/C OMPLE TE BLD COUNT W/DIF F lymphocytes, absolute count 3.64 x10'3 /uL 1.07-3 .43 high Not Available [facility] (Lab) [address] [place], [address], 02/09/2023 06:58:43 02/10/2002/09/2023 CBC/C OMPLE TE BLD COUNT W/DIF F monocytes, absolute count 0.40 x10'3 /uL 0.29-0 .99 Not Available [facility] (Lab) [address] [place], [address], 02/09/2023 06:58:43 02/10/20 23 02/09/2023 CBC/C OMPLE TE BLD COUNT W/DIF F eosinophils, absolute count 0.31 x10'3 /uL 0.02-0 .53 Not Available [facility] (Lab) [address] [place], [address], 02/09/2023 06:58:43 02/10/20 23 02/09/2023 CBC/C OMPLE TE BLD COUNT W/DIF F basophils, absolute count 0.08 x10'3 /uL 0.01-0 .08 Not Available [facility] (Lab) [address] [place], [address], 02/09/2023 06:58:43 02/10/20 23 02/09/2023 CBC/C OMPLE TE BLD COUNT W/DIF F immature granulocytes ,absolute 0.03 x10'3 /uL 0.00-0 .05 Not Available [facility] (Lab) [address] [place], [address], 02/09/2023 06:58:43 02/10/20 23 02/09/2023 CBC/C OMPLE TE BLD COUNT W/DIF F nucleated red blood cells 0.0 % -0 Not Available [facility] (Lab) [address] [place], [address], 02/09/2023 06:58:43 02/10/20 23 02/09/2023 CBC/C OMPLE TE BLD COUNT W/DIF F NRBC# 0.00 x10'3 /uL Not Available [facility] (Lab) [address] [place], [address], 02/09/2023 06:58:43 02/10/20 23 02/09/2023 URINE HCG QUAL/ POINT OF CARE ur preg NEGATI VE TESTI NG PERFO RMED BY SURGI CAROLYN SERVI THONY PERSO NNEL. Not Available [facility] (Lab) [address] [place], [address], 02/09/2023 07:03:22 02/10/20 23 02/09/2023 URINE HCG QUAL/ POINT OF CARE lot no. [id number] Not Available [facility] (Lab) [address] [place], [address], 02/09/2023 07:03:22 02/10/20 23 02/09/2023 URINE HCG QUAL/ POINT OF CARE pos QC POSITI VE Not Available [facility] (Lab) [address] [place], [address], 02/09/2023 07:03:22 02/10/2002/09/2023 URINE HCG QUAL/ POINT OF CARE neg QC NEGATI VE Not Available [facility] (Lab) [address] [place], [address], 02/09/2023 07:03:22 02/10/20 23 02/09/2023 COMPR EHENS LUISITO METAB OLIC PANEL sodium 141 mmol/ L 137-14 5 Not Available [facility] (Lab) [address] [place], [address], 02/09/2023 07:13:48 02/10/20 23 02/09/2023 COMPR EHENS LUISITO METAB OLIC PANEL potassium 4.0 mmol/ L 3.5-5. 1 Not Available [facility] (Lab) [address] [place], [address], 02/09/2023 07:13:48 02/10/20 23 02/09/2023 COMPR EHENS LUISITO METAB OLIC PANEL chloride 107 mmol/ L 98-107 Not Available [facility] (Lab) [address] [place], [address], 02/09/2023 07:13:48 02/10/20 23 02/09/2023 COMPR EHENS LUISITO METAB OLIC PANEL carbon dioxide 24 mmol/ L 22-30 Not Available [facility] (Lab) [address] [place], [address], 02/09/2023 07:13:48 02/10/2002/09/2023 COMPR EHENS LUISITO METAB OLIC PANEL anion gap 14.0 mmol/ L 14-22 Not Available [facility] (Lab) [address] [place], [address], 02/09/2023 07:13:48 02/10/20 23 02/09/2023 COMPR EHENS LUISITO METAB OLIC PANEL glucose 89 mg/dL 70-99 Not Available [facility] (Lab) [address] [place], [address], 02/09/2023 07:13:48 02/10/20 23 02/09/2023 COMPR EHENS LUISITO METAB OLIC PANEL BUN 20 mg/dL 8-19 high Not Available [facility] (Lab) [address] [place], [address], 02/09/2023 07:13:48 02/10/20 23 02/09/2023 COMPR EHENS LUISITO METAB OLIC PANEL creatinine 0.60 mg/dL 0.30-1 .00 Not Available [facility] (Lab) [address] [place], [address], 02/09/2023 07:13:48 02/10/2002/09/2023 COMPR EHENS LUISITO METAB OLIC PANEL GFR >60 Refer ence Range : [place] ge GFR Healt hy Adult : >60 [...] calcu lator is avail able on the [facility] websi te: https ://ww w.kid aicha.o rg/pr ofess ional s/kdo qi/gf r_cal culat or Not Available [facility] (Lab) [address] [place], [address], 02/09/2023 07:13:48 02/10/20 23 02/09/2023 COMPR EHENS LUISITO METAB OLIC PANEL alkaline phosphatase 48 U/L 38-126 Not Available [facility] (Lab) [address] [place], [address], 02/09/2023 07:13:48 02/10/20 23 02/09/2023 COMPR EHENS LUISITO METAB OLIC PANEL alanine aminotransfe rase 28 U/L 0-35 Not Available [facility] (Lab) [address] [place], [address], 02/09/2023 07:13:48 02/10/20 23 02/09/2023 COMPR EHENS LUISITO METAB OLIC PANEL aspartate aminotransfe rase 24 U/L 14-37 Not Available [facility] (Lab) [address] [place], [address], 02/09/2023 07:13:48 02/10/20 23 02/09/2023 COMPR EHENS LUISITO METAB OLIC PANEL bilirubin, total 0.50 mg/dL 0.20-1 .30 Not Available [facility] (Lab) [address] [place], [address], 02/09/2023 07:13:48 02/10/20 23 02/09/2023 COMPR EHENS LUISITO METAB OLIC PANEL calcium 9.5 mg/dL 8.4-10 .2 Not Available [facility] (Lab) [address] [place], [address], 02/09/2023 07:13:48 02/10/20 23 02/09/2023 COMPR EHENS LUISITO METAB OLIC PANEL total protein 7.4 g/dL 6.1-8. 0 Not Available [facility] (Lab) [address] [facility] [place], [address], 02/09/2023 07:13:48 02/10/20 23 02/09/2023 COMPR EHENS LUISITO METAB OLIC PANEL albumin 4.9 g/dL 3.4-5. 0 Not Available [facility] (Lab) [address] [place], [address], 02/09/2023 07:13:48 02/10/20 23 02/09/2023 COMPR EHENS LUISITO METAB OLIC PANEL globulin 2.5 g/dL 2.6-4. 2 low Not Available [facility] (Lab) [address] [place], [address], 02/09/2023 07:13:48 02/10/20 23 02/09/2023 COMPR EHENS LUISITO METAB OLIC PANEL A/G ratio 2.0 ratio 1.0-2. 0 Not Available [facility] (Lab) [address] [place], [address], 02/09/2023 07:13:48 12/31/19 23 12/27/2022 US, abdom en, limit ed No observ ation record ed. BARCODE Not Available 2022 15:47:47 01/14/20 23 01/13/2023 NM, hepat obili manuela scan, w/ CCK No observ ation record ed. [email or web address] [facility] [address] [place], [address], 01/13/2023 12:56:29 Result Notes None recorded. Problems Name Problem SNOMED Code Status Onset Date Resolution Date Notes Provider Name and Address Organization Details Recorded Time Abdominal pain 12666241 Active 023 Esteban dang MD [address], [address], [facility] 3 13:36:11 Biliary dyskinesia 489976114 Active 023 Esteban dang MD [address], [address], [facility] 3 13:59:47 Problem Notes None recorded. Procedures Surgical History Date Name Laterality Status Provider Name and Address Organization Details Recorded Time 02/10/20 Cholecystectomy completed Aliyah Higgins MA [facility] 02/21/2023 10:43:07 Imaging Results Imaging Date Name Status LastModified by Organization Details LastModified Time 12/27/2022 US, abdomen, limited completed BARCODE Information not available 12/30/2022 15:47:47 01/13/2023 NM, hepatobiliary scan, w/ CCK completed [email or web address] [facility] [address] [place], [address], 01/13/2023 12:56:29 Procedure Notes None recorded. Medical [...] /min 167.64 cm 98 % 36.5 kg/m2 780332. 88 g 98 [degF] 120 mm[Hg] 74 mm[Hg] [facility] 11:45:01 Date Recorded Body height Body mass index (BMI) Body mass index (BMI) Percentile per age and sex Body weight Body temperature Heart rate Respiratory rate Oxygen saturation Oxygen saturation in Arterial blood by Pulse oximetry Systolic blood pressure Diastolic blood pressure Provider Name and Address Organization Details Last Updated DateTime 3 167.64 cm 36.5 kg/m2 98 % 824158. 88 g 98 [degF] 75 /min 14 /min 98 % 98 % 120 mm[Hg] 74 mm[Hg] [facility] [employer] [facility] 3 11:22:24 Social History None recorded. Functional Status None recorded. Mental Status None recorded. Family History Relationship Description Onset Age of this Age Resolved Age Notes LastModified by Organization Details LastModified Time Mother Cholecystect tasha lund [email or web address] Not available 01/04/2023 11:46:10 Medical History Condition Response HEADACHES/MIGRAINES Y ASTHMA Y Gynecological HistoryNo gynecological history recorded. Obstetrics History GPAL:G 0 P 0 0 0 0 Past Encounters Encounter ID Performer Location Encounter Start Date Encounter Closed Date Diagnosis/Indication Diagnosis SNOMED-CT Code Diagnosis ICD10 Code Diagnosis Note [id number] [facility] [address] [address] 01/04/2023 11:25:29 01/04/2023 12:32:38 Abdominal pain 90019737 R10.9 [id number] [facility]eban levin [facility] [address] [facility] [address] 01/20/2023 11:19:18 01/20/2023 12:04:56 Biliary dyskinesia 273125550 K82.8 Health Concerns Section Related Observation LastModified by Organization Detai ls LastModified Time None Recorded Concern Status LastModified by Organization Details LastModified Time None Recorded Advance Directives Directive None Recorded Payers Encounter Date Sequence Insurance Name Policy Number Policy Perez Covered Member ID Perez Member ID Guarantor Name 01/04/2023 1 [facility] (MEDICAID REPLACEMENT - HMO) [id number] Irina Garcia [id number] Irina Garcia 01/20/2023 1 [facility] (MEDICAID REPLACEMENT - HMO) [id number] Irina Garcia [id number] Irina Garcia Notes Date Note Type [...] Sandoval MD [address], [place], [address], [facility] 01/04/2023 13:36:20 01/20/2023 text/html patient continue s to have right upper quadrant pain associated with meals. Has been there for approximately a month. Has had a weight loss of approximately 80 lb in the last Few months secondary to improve diet. Denies nausea vomiting fevers chills or any other constitutional symptoms Esteban Sandoval MD [address], [place], [address], [facility] 01/20/2023 14:00:13 OBGyn Episode No OBEpisode recorded.
[2025-01-04 09:25] LABS: Collection Time Urine 24 HOURS
[2025-01-04 09:53] LABS: Creatinine Urine 69.5 mg/dL; Patient Weight 292 Lbs; Serum Creat 0.36; Total Protein Urine Random 10 mg/dL
[2025-01-04 10:11] LABS: Creatinine Clearance Urine 205.8 ml/min (75-125); Total Protein Urine 24 Hr 210 mg/24hr (28-141); Total Volume 24 Hour Urine 2100 ml
== END 2025-01-04 08:44 | disposition home or self-care (01) ==
LOC: ANHOBOP 08:46
PROVIDERS: PCP Family Medicine; Visit Provider Obstetrics & Gynecology
DX: Z34.90 Encounter for supervision of normal pregnancy, unspecified, unspecified trimester (principal); Z3A.00 Weeks of gestation of pregnancy not specified
CPT/HCPCS: 81050; 82575; 84156

== ENCOUNTER 2025-03-04 15:01 | Outpatient (CLI) | payer OTHER, SELFPAY ==
--- OUTSIDE RECORDS SUMMARY | 2025-03-04 15:20 | XMS_ITS | Data Portability ---
Author Organization [facility], [address] [facility] ([place]) Address [address] [address] Care Team Providers Care Lead Press Operator Name Role Phone SUZANNE MEDINA Primary Care Provider Assessment Encounter Date Assessment Date Assessment LastModified by Organization Details LastModified Time 09/05/2024 09/05/2024 1. Discussed the patient s . She is currently just using her albuterol as needed. No other medications. We discussed foods to avoid, medications to avoid, etc. 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 We will go ahead and place [...] Lab test, urine 2023 024 [email or web address] 3 [facility], [facility] [address], [address], 4 16:36:43 Referral obstetricia n and gynecologis t [email or web address] [address], [place], [address], 4 17:16:09 Procedures None recorded. Surgeries None recorded. Imaging None recorded. Medication Orders None recorded. Patient TargetsNo targets recorded. Patient InstructionsNo instructions recorded. 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 Gynecologis t Referral for test positive Referring Physician: Suzanne Medina, Family Medicine, Encounter Date: 09/05/2024 Results Created Date Observation Date Name Description Value Unit Range Abnormal Flag Note LastModifiedBy Organization Detail LastModifiedTime 09/05/20 24 09/05/2024 pregn jacklyn test, urine urine POSITI VE negati ve abnormal (SENS ITIVI TY >99%) (SPEC IFICI TY >99%) Not Available [facility] [address] [place] [address], [address], 09/05/2024 16:23:39 09/11/20 24 09/11/2024 beta- HCG, quant itati ve, serum or plasm a beta-HCG quantitative 78432 mIU/m L 0-5 mIU/m L Negat julianne for pregn jacklyn 6-24 mIU/m L Indet ermin ate >25 mIU/m L Posit julianne for pregn jacklyn Not Available [facility] [address] [place] [address], [address], 09/11/2024 15:55:51 09/13/20 24 09/13/2024 beta- HCG, quant itati ve, serum or plasm a beta-HCG quantitative 69456 mIU/m L 0-5 mIU/m L Negat julianne for pregn jacklyn 6-24 mIU/m L Indet ermin ate >25 mIU/m L Posit julianne for pregn jacklyn Not Available [facility] [address] [place] [address], [address], 09/13/2024 15:37:10 09/17/20 24 09/17/2024 beta- HCG, quant itati ve, serum or plasm a beta-HCG quantitative 67535 mIU/m L 0-5 mIU/m L Negat julianne for pregn jacklyn 6-24 mIU/m L Indet ermin ate >25 mIU/m L Posit julianne for pregn jacklyn Not Available [facility] [address] [place] [address], [place], [address], 09/17/2024 15:41:53 Result Notes None recorded. Problems Name Problem SNOMED Code Status Onset Date Resolution Date Notes Provider Name and Address Organization Details Recorded Time Heart murmur 64753622 Active 024 Suzanne Medina MD [address] [place] [address], [address] , [facility] 4 16:31:56 Obesity 791828565 Active 024 [facility] 4 17:06:50 Weight gain 2873093 Active 024 [facility]ery [facility] 4 17:07:07 Problem Notes None recorded. Medical [...] DateTime 170.18 cm 41.8 kg/m2 99 % 371148. 16 g 97.9 [degF] 20 /min 99 % 99 % 102 /min 128 mm[Hg] 80 mm[Hg] Charlee Barbour [facility] 16:15:39 Social History None recorded. Functional Status None recorded. Mental Status None recorded. Family History Nothing Reported. Medical History No medical history recorded. Gynecological HistoryNo gynecological history recorded. Obstetrics History GPAL:G 0 P 0 0 0 0 Immunizations Vaccine Type Date Status Note Provider Nam e and Address Organization Details Recorded Time Hib, unspecified formulation 5 completed Charlee Barbour [facility] 09/05/2024 16:15:45 Hib, unspecified formulation 5 completed Charlee Barbour [facility] 09/05/2024 16:15:45 Hib, unspecified formulation 5 completed Charlee Barbour [facility] 09/05/2024 16:15:45 MMR 9 completed Charlee Barbour [facility] 09/05/2024 16:15:45 MMR 5 completed Charlee Barbour [facility] 09/05/2024 16:15:45 pneumococcal conjugate PCV 7 5 completed Charlee Barbour [facility] 09/05/2024 16:15:45 pneumococcal conjugate PCV 7 5 completed Charlee Barbour [facility] 09/05/2024 16:15:45 pneumococcal conjugate PCV 7 5 completed Charlee Barbour [facility] 09/05/2024 16:15:45 pneumococcal conjugate PCV 7 5 completed Charlee Barbour [facility] 09/05/2024 16:15:45 DTaP-IPV 9 completed Charlee Barbour [facility] 09/05/2024 16:15:45 influenza, unspecified formulation 5 completed Charlee Barbour null, [facility] 09/05/2024 16:15:45 influenza, unspecified formulation 5 completed Charlee Barbour null, [facility] 09/05/2024 16:15:45 Tdap 6 completed [facility]24 16:15:45 Tdap 3 completed [facility] 09/05/2024 16:15:45 varicella 6 completed [facility] 09/05/2024 16:15:45 varicella 9 completed [facility] 09/05/2024 16:15:45 Influenza, split virus, trivalent, preservative 6 completed [facility] 09/05/2024 16:15:45 Meningococcal MCV4O 2 completed [facility] 09/05/2024 16:15:45 meningococcal MCV4P 6 completed [facility] 09/05/2024 16:15:45 DTaP 6 completed [facility] 09/05/2024 16:15:45 DTaP-Hep B-IPV 5 completed Charlee Barbour null, [facility] 09/05/2024 16:15:45 DTaP-Hep B-IPV 5 completed Charlee Barbour null, [facility] 09/05/2024 16:15:45 DTaP-Hep B-IPV 5 completed [facility]/2024 16:15:45 Past Encounters Encounter ID Performer Location Encounter Start Date Encounter Closed Date Diagnosis/Indication Diagnosis SNOMED-CT Code Diagnosis ICD10 Code Diagnosis Note [id number] Suzanne Medina MD [facility] ([place]) [address] [place] [address] 09/05/2024 16:07:20 09/05/2024 16:52:01 Amenorrhea 32417063 N91.2 test positive 407903785 Z32.01 Health Concerns Section Related Observation LastModified by Organization Detai ls LastModified Time None Recorded Concern Status LastModified by Organization Details LastModified Time None Recorded Advance Directives Directive None Recorded Payers Insurance Date Sequence Insurance Name Policy Number Policy Perez Covered Member ID Perez Member ID Guarantor Name 09/05/2024 1 [facility] (MEDICAID REPLACEMENT - HMO) [id number] Irina Garcia [id number] Irina Garcia 09/05/2024 1 *SELF PAY* kendrick Garcia Notes Date Note Type Note Provider Name and Address Organization Details Recorded Time 09/05/2024 text/html The patient is here today because she had a positive home test on 09/02/24. She thinks she started her last period around 07/31/24. She is feeling well and denies any concerns. Suzanne Medina MD [address] [place] [address], [phone], [facility] 09/10/2024 15:04:09 OBGyn Episode No OBEpisode recorded.
--- OUTSIDE RECORDS SUMMARY | 2025-03-04 15:20 | XMS_ITS | Clinical Summary ---
Author Organization [facility] Address [address] [place] [address] Phone Care Team Providers Care Cargo Service Agent Name Role Phone Lashon Rees MD Primary Care Provider [phone] Allergies Active Allergy Reactions Criticality Noted Date [...] Active fluticasone 50 MCG/ACT NA SUSP 1 [place] by Nasal route 2 times daily. Use [...] on file Legal Sex Female 3:52 AM [employer] Gender Identity Not on file Sexual Orientation [...] 4:37 PM CDT Height 166.4 cm (5' 5.5) 05/07/2017 4:37 PM CDT Body Mass Index [...] ID:Not on file Type:Not on file Address: [place] [phone] Care Teams Cargo Service Agent Relationship Specialty Start Date End Date Lashon Rees MD [address] [address] PCP - General 10/11/09
--- OUTSIDE RECORDS SUMMARY | 2025-03-04 15:20 | XMS_ITS | Data Portability ---
Author Organization [place] - [address] [email or web address], Main Office Address [address] [place] [address] Assessment Encounter Date Assessment Date Assessment LastModified [...] 8.0 x10'3 /uL 4.2-10 .8 Not Available [facility] (Lab) [address] [place], [address], 02/09/2023 06:58:43 02/10/2002/09/2023 CBC/C OMPLE TE BLD COUNT W/DIF F red blood cells 5.19 x10'6 /uL 3.80-5 .20 Not Available [facility] (Lab) [address] [facility] [place], [address], 02/09/2023 06:58:43 02/10/2002/09/2023 CBC/C OMPLE TE BLD COUNT W/DIF F hemoglobin 15.2 g/dL 12.0-1 5.6 Not Available [facility] (Lab) [address] [place], [address], 02/09/2023 06:58:43 02/10/20 23 02/09/2023 CBC/C OMPLE TE BLD COUNT W/DIF F hematocrit 45.4 % 35.7-4 5.7 Not Available [facility] (Lab) [address] [place], [address], 02/09/2023 06:58:43 02/10/2002/09/2023 CBC/C OMPLE TE BLD COUNT W/DIF F mean red cell volume 87.5 fL 82.0-9 9.0 Not Available [facility] (Lab) [address] [place], [address], 02/09/2023 06:58:43 02/10/2002/09/2023 CBC/C OMPLE TE BLD COUNT W/DIF F mean red cell hemoglobin 29.3 pg 27.0-3 3.0 Not Available [facility] (Lab) [address] [place], [address], 02/09/2023 06:58:43 02/10/2002/09/2023 CBC/C OMPLE TE BLD COUNT W/DIF F mean RBC HGB concentratio n 33.5 g/dL 31.0-3 6.0 Not Available [facility] (Lab) [address] [place], [address], 02/09/2023 06:58:43 02/10/2002/09/2023 CBC/C OMPLE TE BLD COUNT W/DIF F red cell distribution width 12.4 % 11.8-1 5.5 Not Available [facility] (Lab) [address] [place], [address], 02/09/2023 06:58:43 02/10/20 23 02/09/2023 CBC/C OMPLE TE BLD COUNT W/DIF F platelets 303 x10'3 /uL 150-40 0 Not Available [facility] (Lab) [address] [place], [address], 02/09/2023 06:58:43 02/10/2002/09/2023 CBC/C OMPLE TE BLD COUNT W/DIF F mean platelet volume 9.7 fL 9.0-12 .4 Not Available [facility] (Lab) [address] [place], [address], 02/09/2023 06:58:43 02/10/2002/09/2023 CBC/C OMPLE TE BLD COUNT W/DIF F neutrophils 44.1 % 39.0-7 2.0 Not Available [facility] (Lab) [address] [place], [address], 02/09/2023 06:58:43 02/10/2002/09/2023 CBC/C OMPLE TE BLD COUNT W/DIF F lymphocytes 45.6 % 16.0-4 7.0 Not Available [facility] (Lab) [address] [place], [address], 02/09/2023 06:58:43 02/10/2002/09/2023 CBC/C OMPLE TE BLD COUNT W/DIF F monocytes 5.0 % 5.0-12 .0 Not Available [facility] (Lab) [address] [place], [address], 02/09/2023 06:58:43 02/10/2002/09/2023 CBC/C OMPLE TE BLD COUNT W/DIF F eosinophils 3.9 % 1.0-7. 0 Not Available [facility] (Lab) [address] [place], [address], 02/09/2023 06:58:43 02/10/2002/09/2023 CBC/C OMPLE TE BLD COUNT W/DIF F basophils 1.0 % 0.0-2. 0 Not Available [facility] (Lab) [address] [place], [address], 02/09/2023 06:58:43 02/10/2002/09/2023 CBC/C OMPLE TE BLD COUNT W/DIF F immature granulocytes 0.4 % 0.00-0 .50 Not Available [facility] (Lab) [address] [place], [address], 02/09/2023 06:58:43 02/10/2002/09/2023 CBC/C OMPLE TE BLD COUNT W/DIF F neutrophils, absolute count 3.52 x10'3 /uL 1.5-8. 0 Not Available [facility] (Lab) [address] [place], [address], 02/09/2023 06:58:43 02/10/2002/09/2023 CBC/C OMPLE TE BLD COUNT W/DIF F lymphocytes, absolute count 3.64 x10'3 /uL 1.07-3 .43 high Not Available [facility] (Lab) [address] [place], [address], 02/09/2023 06:58:43 02/10/2002/09/2023 CBC/C OMPLE TE BLD COUNT W/DIF F monocytes, absolute count 0.40 x10'3 /uL 0.29-0 .99 Not Available [facility] (Lab) [address] [place], [address], 02/09/2023 06:58:43 02/10/20 23 02/09/2023 CBC/C OMPLE TE BLD COUNT W/DIF F eosinophils, absolute count 0.31 x10'3 /uL 0.02-0 .53 Not Available [facility] (Lab) [address] [place], [address], 02/09/2023 06:58:43 02/10/20 23 02/09/2023 CBC/C OMPLE TE BLD COUNT W/DIF F basophils, absolute count 0.08 x10'3 /uL 0.01-0 .08 Not Available [facility] (Lab) [address] [place], [address], 02/09/2023 06:58:43 02/10/20 23 02/09/2023 CBC/C OMPLE TE BLD COUNT W/DIF F immature granulocytes ,absolute 0.03 x10'3 /uL 0.00-0 .05 Not Available [facility] (Lab) [address] [place], [address], 02/09/2023 06:58:43 02/10/20 23 02/09/2023 CBC/C OMPLE TE BLD COUNT W/DIF F nucleated red blood cells 0.0 % -0 Not Available [facility] (Lab) [address] [place], [address], 02/09/2023 06:58:43 02/10/20 23 02/09/2023 CBC/C OMPLE TE BLD COUNT W/DIF F NRBC# 0.00 x10'3 /uL Not Available [facility] (Lab) [address] [place], [address], 02/09/2023 06:58:43 02/10/20 23 02/09/2023 URINE HCG QUAL/ POINT OF CARE ur preg NEGATI VE TESTI NG PERFO RMED BY SURGI CAROLYN SERVI THONY PERSO NNEL. Not Available [facility] (Lab) [address] [place], [address], 02/09/2023 07:03:22 02/10/20 23 02/09/2023 URINE HCG QUAL/ POINT OF CARE lot no. [id number] Not Available [facility] (Lab) [address] [place], [address], 02/09/2023 07:03:22 02/10/20 23 02/09/2023 URINE HCG QUAL/ POINT OF CARE pos QC POSITI VE Not Available [facility] (Lab) [address] [place], [address], 02/09/2023 07:03:22 02/10/2002/09/2023 URINE HCG QUAL/ POINT OF CARE neg QC NEGATI VE Not Available [facility] (Lab) [address] [place], [address], 02/09/2023 07:03:22 02/10/20 23 02/09/2023 COMPR EHENS LUISITO METAB OLIC PANEL sodium 141 mmol/ L 137-14 5 Not Available [facility] (Lab) [address] [place], [address], 02/09/2023 07:13:48 02/10/20 23 02/09/2023 COMPR EHENS LUISITO METAB OLIC PANEL potassium 4.0 mmol/ L 3.5-5. 1 Not Available [facility] (Lab) [address] [place], [address], 02/09/2023 07:13:48 02/10/20 23 02/09/2023 COMPR EHENS LUISITO METAB OLIC PANEL chloride 107 mmol/ L 98-107 Not Available [facility] (Lab) [address] [place], [address], 02/09/2023 07:13:48 02/10/20 23 02/09/2023 COMPR EHENS LUISITO METAB OLIC PANEL carbon dioxide 24 mmol/ L 22-30 Not Available [facility] (Lab) [address] [place], [address], 02/09/2023 07:13:48 02/10/2002/09/2023 COMPR EHENS LUISITO METAB OLIC PANEL anion gap 14.0 mmol/ L 14-22 Not Available [facility] (Lab) [address] [place], [address], 02/09/2023 07:13:48 02/10/20 23 02/09/2023 COMPR EHENS LUISITO METAB OLIC PANEL glucose 89 mg/dL 70-99 Not Available [facility] (Lab) [address] [place], [address], 02/09/2023 07:13:48 02/10/20 23 02/09/2023 COMPR EHENS LUISITO METAB OLIC PANEL BUN 20 mg/dL 8-19 high Not Available [facility] (Lab) [address] [place], [address], 02/09/2023 07:13:48 02/10/20 23 02/09/2023 COMPR EHENS LUISITO METAB OLIC PANEL creatinine 0.60 mg/dL 0.30-1 .00 Not Available [facility] (Lab) [address] [place], [address], 02/09/2023 07:13:48 02/10/2002/09/2023 COMPR EHENS LUISITO METAB OLIC PANEL GFR >60 Refer ence Range : [place] ge GFR Healt hy Adult : >60 [...] is avail able on the [facility] websi te: https ://ww w.kid aicha.o rg/pr ofess ional s/kdo qi/gf r_cal culat or Not Available [facility] (Lab) [address] [place], [address], 02/09/2023 07:13:48 02/10/20 23 02/09/2023 COMPR EHENS LUISITO METAB OLIC PANEL alkaline phosphatase 48 U/L 38-126 Not Available [facility] (Lab) [address] [place], [address], 02/09/2023 07:13:48 02/10/20 23 02/09/2023 COMPR EHENS LUISITO METAB OLIC PANEL alanine aminotransfe rase 28 U/L 0-35 Not Available [facility] (Lab) [address] [place], [address], 02/09/2023 07:13:48 02/10/20 23 02/09/2023 COMPR EHENS LUISITO METAB OLIC PANEL aspartate aminotransfe rase 24 U/L 14-37 Not Available [facility] (Lab) [address] [place], [address], 02/09/2023 07:13:48 02/10/20 23 02/09/2023 COMPR EHENS LUISITO METAB OLIC PANEL bilirubin, total 0.50 mg/dL 0.20-1 .30 Not Available [facility] (Lab) [address] [place], [address], 02/09/2023 07:13:48 02/10/20 23 02/09/2023 COMPR EHENS LUISITO METAB OLIC PANEL calcium 9.5 mg/dL 8.4-10 .2 Not Available [facility] (Lab) [address] [place], [address], 02/09/2023 07:13:48 02/10/20 23 02/09/2023 COMPR EHENS LUISITO METAB OLIC PANEL total protein 7.4 g/dL 6.1-8. 0 Not Available [facility] (Lab) [address] [facility] [place], [address], 02/09/2023 07:13:48 02/10/20 23 02/09/2023 COMPR EHENS LUISITO METAB OLIC PANEL albumin 4.9 g/dL 3.4-5. 0 Not Available [facility] (Lab) [address] [place], [address], 02/09/2023 07:13:48 02/10/20 23 02/09/2023 COMPR EHENS LUISITO METAB OLIC PANEL globulin 2.5 g/dL 2.6-4. 2 low Not Available [facility] (Lab) [address] [place], [address], 02/09/2023 07:13:48 02/10/20 23 02/09/2023 COMPR EHENS LUISITO METAB OLIC PANEL A/G ratio 2.0 ratio 1.0-2. 0 Not Available [facility] (Lab) [address] [place], [address], 02/09/2023 07:13:48 12/31/19 23 12/27/2022 US, abdom en, limit ed No observ ation record ed. BARCODE Not Available 2022 15:47:47 01/14/20 23 01/13/2023 NM, hepat obili manuela scan, w/ CCK No observ ation record ed. [email or web address] [facility] [address] [facility], [place], [address], 01/13/2023 12:56:29 Result Notes None recorded. Problems Name Problem SNOMED Code Status Onset Date Resolution Date Notes Provider Name and Address Organization Details Recorded Time Abdominal pain 42984201 Active 023 Esteban dang MD [address], [address], [employer] 3 13:36:11 Biliary dyskinesia 642264900 Active 023 Esteban dagn MD [address], [address], [employer] 3 13:59:47 Problem Notes None recorded. Procedures Surgical History Date Name Laterality Status Provider Name and Address Organization Details Recorded Time 02/10/20 23 Cholecystectomy completed Aliyah Higgins MA [employer] 02/21/2023 10:43:07 Imaging Results None recorded. Procedure Notes None recorded. Medical Equipment None [...] /min 167.64 cm 98 % 36.5 kg/m2 223497. 88 g 98 [degF] 120 mm[Hg] 74 mm[Hg] Patty Mendez GA [employer] [facility] [employer] [facility] 11:45:01 Date Recorded Body height Body mass index (BMI) Body mass index (BMI) Percentile per age and sex Body weight Body temperature Heart rate Respiratory rate Oxygen saturation Oxygen saturation in Arterial blood by Pulse oximetry Systolic blood pressure Diastolic blood pressure Provider Name and Address Organization Details Last Updated DateTime 3 167.64 cm 36.5 kg/m2 98 % 792787. 88 g 98 [degF] 75 /min 14 /min 98 % 98 % 120 mm[Hg] 74 mm[Hg] Patty Mendez [place] - S [place] [employer] [facility] 11:22:24 Social History None recorded. Functional Status None recorded. Mental Status None recorded. Family History Relationship Description Onset Age of this Age Resolved Age Notes LastModified by Organization Details LastModified Time Mother Cholecystect tasha Diabet ic [email or web address] Not available 01/04/2023 11:46:10 Medical History Condition Response HEADACHES/MIGRAINES Y ASTHMA Y Gynecological HistoryNo gynecological history recorded. Obstetrics History GPAL:G 0 P 0 0 0 0 Past Encounters Encounter ID Performer Location Encounter Start Date Encounter Closed Date Diagnosis/Indication Diagnosis SNOMED-CT Code Diagnosis ICD10 Code Diagnosis Note [id number] Esteban levin MD [facility] General Surgery [address] [place] [address] 01/04/2023 11:25:29 01/04/2023 12:32:38 Abdominal pain 32824195 R10.9 [id number] Esteban levin MD [facility] General Surgery [address] [place] [address] 01/20/2023 11:19:18 01/20/2023 12:04:56 Biliary dyskinesia 563006406 K82.8 Health Concerns Section Related Observation LastModified by Organization Detai ls LastModified Time None Recorded Concern Status LastModified by Organization Details LastModified Time None Recorded Advance Directives Directive None Recorded Payers Encounter Date Sequence Insurance Name Policy Number Policy Perez Covered Member ID Perez Member ID Guarantor Name 01/04/2023 1 [facility] (MEDICAID REPLACEMENT - HMO) [id number] Irina Garcia [id number] Irina Garcia 01/20/2023 1 [facility] (MEDICAID REPLACEMENT - HMO) [id number] Irina Garcia [id number] Irina Garcia Notes Date Note Type [...] Sandoval MD [address], [address], [place], [address], [employer] 01/04/2023 13:36:20 01/20/2023 text/html patient continue s to have right upper quadrant pain associated with meals. Has been there for approximately a month. Has had a weight loss of approximately 80 lb in the last Few months secondary to improve diet. Denies nausea vomiting fevers chills or any other constitutional symptoms Esteban Sandoval MD [address], [place], [address], [employer] 01/20/2023 14:00:13 OBGyn Episode No OBEpisode recorded.
--- OUTSIDE RECORDS SUMMARY | 2025-03-04 15:21 | XMS_ITS | Clinical Summary ---
Author Organization [facility] Address [address] [place] [address] Care Team Providers Care Electroplating Sales Representative Name Role Phone Unavailable Primary Care Provider Unavailabl e Source Comments [facility],non-owned Affiliates and Associated Physician Practices is amultiple site organization consisting of ambulatory clinics and hospital sitesin [place], [place], [place] and [place]. This disclosure is being madepursuant to the Care Everywhere program and may not contain all information available regarding this patient. Last updated 18.[facility] [employer] [place] Allergies No known active allergies Medications * This document contains information received from the source organization and may not represent a complete record from that organization. * Be aware that medications may not be up to date on this document. Alwaysverify current medications with the patient. Vit-DSS-Fe Fum-FA ( vitamin with iron) tablet Take 1 (one) tablet by mouth once daily Active aspirin (Aspirin) 81 MG chew tablet Take 2 (two) tablets by mouth once daily (chew and swallow) Active albuterol HFA (Proventil; Ventolin; Proair) 108 (90 Base) MCG/ACT inhaler Inhale 2 (two) puffs by mouth every 6 hours as needed for Shortness of Breath Active labetalol (Normodyne; Trandate) 200 MG tablet Take 1 (one) tablet by mouth every 12 hours Active Encounters * This document contains information received from the source organization and may not represent a complete record from that organization. Date Type Department Care Team Description 03/01/2025 Telephone [facility] Maternal & Care [address] [place] [phone] Daniela Gonsales RN Results (NIPT results. LM for patient to CB. ) 02/18/2025 Telephone [facility] Maternal & Care [address] [place] [phone] Daniela Gonsales RN Future Appointment (Called patient to review EKG/ECHO appt scheduled at [facility] with date/time/address and Neurology to call. ) 02/15/2025 Travel 02/13/2025 1:02 PM CDT - 02/13/2025 11:59 PM CDT Hospital Encounter [facility] M[facility] & Care [address] [place] [phone] Srinivasan Blankenship MD Discharge Disposition: Home or Self Care 02/13/2025 1:00 PM CDT - 02/13/2025 1:01 PM CDT Hospital Encounter [facility] M[facility] & Care [address] [place] [phone] Srinivasan Blankenship MD Discharge Disposition: Home or Self Care 01/30/2025 11:59 PM CDT Hospital Encounter [facility] & [facility] [address] [place] [phone] Srinivasan Blankenship MD Discharge Disposition: Home or Self Care 01/08/2025 Travel 12/28/2024 8:15 AM CDT - 12/28/2024 11:59 PM CDT Hospital Encounter [facility] [address] [place] [phone] Desean Allen MD Discharge Disposition: Home or Self Care from Last 3 Months Family History Medical History Relation Name Comments Asthma Brother 1 Diabetes - Type 2 Mother Relation Name Status Comments Brother 1 Alive Brother 2 Alive Father Alive Mother Alive Social History Tobacco Use Types Packs/Day Years Used Date Smoking Tobacco: Never Smokeless Tobacco: Never Tobacco Cessation:Counseling Given: Not Answered Alcohol Use Standard Drinks/Week Comments Not Currently 0 (1 standard drink = 0.6 oz pur e alcohol) Estimated Date of Delivery Comme nts Yes 05/12/2025 Based on last me nstrual period of 08/05/2024 Sex and Gender Information Value Date Recorded Sex Assigned at Not on file Legal 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 Gender Identity Not on file Sexual Orientation Not on file Last Filed Vital Signs Vital Sign Reading Time Taken Comments Blood Pressure 136/82 02/13/2025 1:59 PM CDT Pulse 97 02/13/2025 1:59 PM CDT Temperature - - Respiratory Rate - - Oxygen Saturation - - Inhaled Oxygen Concentration - - Weight 136.5 kg (301 lb) 02/13/2025 1:59 PM CDT Height 170.2 cm (5' 7) 02/13/2025 1:59 PM CDT Body Mass Index 47.14 02/13/2025 1:59 PM CDT Plan of Treatment Upcoming Encounters Date Type Department Care Team (Late st Contact Info) Description 03/06/2025 2:30 PM CDT Hospital Encounter [facility] [place] [facility] & [facility] [address] [place] [phone] 03/14/2025 8:30 AM CDT Appointment [facility] [place] [address] [place] [phone] 03/14/2025 8:30 AM CDT Appointment [address] [address] 03/14/2025 1:00 PM CDT Appointment [facility] [address] [place] [phone] 03/14/2025 2:00 PM CDT Appointment [facility] [address] [place] [phone] Health Maintenance Due Date Last Done Comments HIV SCREENING 2019 HPV VACCINE (1 - 3-dose series) 2019 CHLAMYDIA/GONORRHEA SCREENING 2020 MENINGOCOCCAL (Group B) VACCINE SHARED DECISION-MAKING (1 of 2 - Standard) 2020 HEPATITIS C SCREENING 08/23/2022 DTAP/TDAP/TD VACCINES (1 - Tdap) 2023 HEPATITIS B VACCINE (1 of 3 - 19+ 3-dose series) 2023 COVID-19 VACCINE (1 - 2023-2 5 season) 2024 DEPRESSION SCREENING 10/03/2024 OB-ONE HOUR GLUCOSE 02/03/2025 OB-TDAP CURRENT 02/10/2025 OB-RHOGAM INJECTION 02/17/2025 INFLUENZA VACCINE (Season Ended) 2025 07/28/2006, 08/19/2005, [...] Associated Diagnosis Comments SONOGRAM - COMPLETE Routine 02/13/2025 1 :00 PM CDT Obesity affecting , antepartum, unspecified obesity type (HCC) Encounter for follow-up ultrasound of anatomy (HCC) Encounter for ultrasound to assess growth (HCC) 27 weeks gestation of (HCC) Gestational hypertension, second trimester (HCC) SONOGRAM - COMPLETE Routine 12/28/2024 8 :17 AM CDT Obesity affecting , antepartum, unspecified obesity type Encounter for anatomic survey 21 weeks gestation of from Last 3 Months Results * SONOGRAM - COMPLETE (02/13/2025 1:00 PM CDT) Only the most recent of2 resultswithin the time period is included. Linked Results Indication ======== cHTN vs gHTN (BP normal at 12 weeks & elevated at 17 weeks) on labetalol Obesity in (pre- class III, BMI 44.5), Asthma on albuterol History ====== OB History 1 Lab Tests Test Date Result Not performed Maternal Assessment Physical Exam Height 170 cm, 5 ft 7 in. Weight 137 kg, 301 lb. Initial weight 129 kg, 284 lb. BMI 47.14 kg/m . Initial BMI 44.48 kg/m . Weight gain 8 kg, 17 lb Method ====== Transabdominal ultrasound. View: Suboptimal view: limited by maternal body habitus ========= Green . Number of fetuses: 1 Dating ====== Date Details Gest. age ROCKY LMP 08/05/2024 27 w + 3 d 05/12/2025 Previous U/S 09/14/2024 GA, GA 5 w + 5 d 27 w + 3 d 05/12/2025 U/S 02/13/2025 based upon AC, BPD, Femur, HC 28 w + 3 d 05/05/2025 Assigned dating based on the LMP, selected on 12/28/2024 27 w + 3 d 05/12/2025 General Evaluation Cardiac activity present. FHR 140 bpm. Presentation: cephalic Placenta: Placental site: anterior Umbilical cord: Cord vessels: 3 vessel cord - previously documented. Insertion site: normal insertion - previously documented Amniotic fluid: Amount of AF: normal. MVP 7.3 cm Biometry BPD 72.8 mm 29w 1d 89% Hadlock HC 265.5 mm 28w 6d 69% Hadlock AC 234.8 mm 27w 6d 54% Hadlock Femur 52.3 mm 27w 6d 48% Hadlock Humerus 50.4 mm 29w 4d 93% Michael HC / AC 1.13 -/- Hadlock Weight Calculation: EFW 1,162 g 61% Hadlock EFW (lb,oz) 2 lb 9 oz EFW by Hadlock ([id number]) appropriate Growth Overview Exam date GA BPD (mm) HC (mm) AC (mm) FL (mm) HL (mm) EFW (g) 12/28/2024 20w 5d 50.1 68% 187.6 58% 161 60% 34.5 47% 37.4 98% 396 63% 02/13/2025 27w 3d 72.8 89% 265.5 69% 234.8 54% 52.3 48% 50.4 93% 1162 61% Anatomy The following structures appear normal: Head / Neck Cranium. Thalami. Face Lips. Heart / Thorax RVOT view. LVOT view. 3-vessel view. 9-gltvtx-hivysvc view. Bicaval view. Diaphragm. Abdomen Stomach. Kidneys. Bladder. Genitals. Spine Cervical spine. Thoracic spine. Lumbar spine. Sacral spine. The following structures could not be adequately visualized: Face Profile. Nose. Orbits. Heart / Thorax 4-chamber view. Aortic arch view. Ductal arch view. Interventricular septum. Great vessels. Right lung. Left lung. Extremities / Skeleton Left hand. The following structures were documented previously: Head / Neck Lateral ventricles. Choroid plexus. Midline falx. Cavum septi pellucidi. Cerebellum. Cisterna magna. Heart / Thorax Situs. Abdomen Cord insertion. Bowel. Extremities / Skeleton Arms. Right hand. Legs. Feet. sex: female. Impression ========= * Green IUP at 27 weeks of gestation by stated EDC from LMP & early U/S * Referred to [facility] for obstetrical U/S & request for consult secondary to: Hypertension in Pre- obesity Class III, BMI >=40 * Today's ultrasound (U/S) findings: Living green intrauterine fetus growth is in the normal range Amniotic fluid volume appears normal Placenta is anterior & clear of the internal cervical os Comprehensive anatomic survey: possible ventricular septal defect (VSD) COUNSELING & RECOMMENDATIONS (PLEASE SEE FULL CONSULT IN EPIC) * In my best medical opinion, I would advise: Multi-disciplinary care with: Machine Joiner Cementer for primary obstetrical care & delivery [facility] follow-up consult in 4 weeks with our Nurse Practitioner Cardiology for maternal echocardiogram & EKG Neurology for evaluation of headaches Pediatric Cardiology for echocardiogram Anesthesiology at planned delivery facility in early 3rd-trimester Laboratory evaluation: Baseline preeclampsia labs (i.e. CBC, CMP & PCR), repeat PRN change in condition Screen for gestational diabetes mellitus (GDM) cf-DNA non-invasive screen (NIPS) with DiGeorge Syndrome (DGS) deletion Initiate daily ambulatory BP monitoring, with appropriate size cuff Target goals for managing CHTN in : The 2018 ACOG PB-203 recommends 120-159/80-109 mmHg Based upon the 2021 CHAP study, ACOG now recommends < 140/90 mmHg Thresholds of BP for which she should notify her OB provider: For trends in SBP >= 140 or DBP >= 90 mmHg For any SBP >= 160 or DBP >= 110 mmHg Follow-up assessment: Daily kick counts U/S for growth every 4 weeks echocardiogram by Pediatric Cardiology Start 1x-weekly testing (e.g. NST+BPP) at 32 weeks Delivery planning (timing, mode, location): too early to determine at present In the period, continue to monitor for severe-range BP, either by: An early visit within 7-10 days of delivery, and/or Continued daily ambulatory BP monitoring & notify provider if BP severe In the long-term, focus on diet, exercise & attaining normal-range BMI Follow-up ======== U/S in 4 weeks Coding ====== Procedures 26871: US Preg Uterus Follow Up [facility] NComputing PACS Anatomical Region Laterality Modality Other 02/13/2025 1:00 PM CDT us Kyle Goodman MD [facility] ORDERABLES Edited Result - Final from Last [address] [place] [address] [place] [address]
[2025-03-04 15:31] VITALS: BP 146/74; PULSE 118
[2025-03-04 15:31] LABS: Basophils Percent Auto 0.4 % (0.2-1.2); Eosinophils Absolute Auto 0.2 K/mm3 (0-0.3); Eosinophils Percent Auto 1.9 % (0-4.4); Hematocrit 34.7 % (37.0-47.0); Hemoglobin 11.3 g/dL (12.0-15.0); Immature Granulocyte Absolute 0.08 K/mm3 (0.00-0.031); Immature Granulocyte Percent A 0.7 % (0-0.5); Lymphocytes Absolute Auto 2.27 K/mm3 (0.9-3.2); Lymphocytes Percent Auto 20.2 % (18.3-44.2); Mean Corpuscular HGB Conc 32.6 g/dl (32-36); Mean Corpuscular Hemoglobin 27.2 pg (26-34); Mean Corpuscular Volume 83.4 fl (80-100); Monocytes Absolute Auto 0.4 K/mm3 (0.1-0.6); Monocytes Percent Auto 3.6 % (2.6-8.5); Neutrophils Absolute Auto 8.3 K/mm3 (1.3-6.7); Neutrophils Percent Auto 73.2 % (45.5-73.1); Platelet Count Result 242 k/mm3 (150-375); Red Blood Count 4.16 M/mm3 (4.2-5.4); Red Cell Distribution Width 13.5 % (11.5-14.5); White Blood Count 11.3 K/mm3 (4.5-10.0)
[2025-03-04 15:40] LABS: Add Urine Microscopic? YES; Appearance Urine Clear (Clear); Bacteria Urine 3+ /hpf; Bilirubin Urine Negative (Negative); Blood Urine Negative (Negative); Color Urine Yellow (Yellow); Glucose Urine UA Negative (Negative); Ketones Urine 3+ mg/dL (Negative); Leukocyte Esterase Ur 2+ LEU/UL (Negative); Nitrate Urine Negative (Negative); Protein Urine Trace mg/dL (Negative); RBC Urine 0-2 /hpf (0-2); Specific Grav Ur 1.017 (1.001-1.035); Squamous Epithelial Cell Urine Few /hpf (Few); pH Urine 6.5 (5.0-9.0)
[2025-03-04 15:45] VITALS: BP 146/73; PULSE 101
[2025-03-04 16:02] LABS: Creatinine Urine 102.4 mg/dL; Total Protein Urine Random 12 mg/dL; Ur Ttl Prot Creatinine Ratio 0.12 mg/mg (0-0.20)
[2025-03-04 16:21] LABS: Alanine Aminotransferase 12 U/L (6-35); Albumin Level 3.8 g/dL (3.5-5.1); Alkaline Phosphatase 68 U/L (38-126); Anion Gap 10 mmol/L (4-12); Aspartate Amino Transferase 24 U/L (14-36); Bilirubin,Total 0.7 mg/dL (0.2-1.3); Blood Urea Nitrogen 5 mg/dL (7-17); Calcium 9.5 mg/dL (8.4-10.2); Carbon Dioxide 19 mmol/L (22-30); Chloride 108 mmol/L (98-107); Estimated Glomerular Filt Rate > 60; Glucose 106 mg/dL (65-110); Potassium 3.5 mmol/L (3.4-5.0); Sodium 137 mmol/L (137-145); Uric Acid 3.3 mg/dL (2.5-7.5)
[2025-03-04 17:15] VITALS: BP 146/74; PULSE 118
== END 2025-03-04 17:15 | disposition home or self-care (01) ==
LOC: ANHOBOP 15:04 → ANHOBPP 15:05
PROVIDERS: PCP Family Medicine; Visit Provider Obstetrics & Gynecology
DX: O13.9 Gestational [pregnancy-induced] hypertension without significant proteinuria, unspecified trimester (principal); Z3A.00 Weeks of gestation of pregnancy not specified
CPT/HCPCS: 36415; 59025; 80053; 81001; 82570; 84156; 84550; 85025; 87086; 99199

== ENCOUNTER 2025-03-07 09:29 | Outpatient (CLI) | payer OTHER, SELFPAY ==
--- OUTSIDE RECORDS SUMMARY | 2025-03-07 10:13 | XMS_ITS | Clinical Summary ---
Author Organization [facility] Address [address] [place] [address] Phone Care Team Providers Care Grinding Wheel Operator Name Role Phone Lashon Rees MD Primary Care Provider [phone] Allergies Active Allergy Reactions Criticality Noted Date [...] Active fluticasone 50 MCG/ACT NA SUSP 1 [place] by Nasal route 2 times daily. 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
--- OUTSIDE RECORDS SUMMARY | 2025-03-07 10:13 | XMS_ITS | Data Portability ---
Author Organization [place] - [email or web address], Main Office Address [address] [place] [address] Assessment Encounter Date Assessment Date Assessment LastModified [...] 8.0 x10'3 /uL 4.2-10 .8 Not Available [facility] (Lab) [address] [place], [address], 02/09/2023 06:58:43 02/10/2002/09/2023 CBC/C OMPLE TE BLD COUNT W/DIF F red blood cells 5.19 x10'6 /uL 3.80-5 .20 Not Available [facility] (Lab) [address] [facility] [place], [address], 02/09/2023 06:58:43 02/10/2002/09/2023 CBC/C OMPLE TE BLD COUNT W/DIF F hemoglobin 15.2 g/dL 12.0-1 5.6 Not Available [facility] (Lab) [address] [place], [address], 02/09/2023 06:58:43 02/10/20 23 02/09/2023 CBC/C OMPLE TE BLD COUNT W/DIF F hematocrit 45.4 % 35.7-4 5.7 Not Available [facility] (Lab) [address] [place], [address], 02/09/2023 06:58:43 02/10/2002/09/2023 CBC/C OMPLE TE BLD COUNT W/DIF F mean red cell volume 87.5 fL 82.0-9 9.0 Not Available [facility] (Lab) [address] [place], [address], 02/09/2023 06:58:43 02/10/2002/09/2023 CBC/C OMPLE TE BLD COUNT W/DIF F mean red cell hemoglobin 29.3 pg 27.0-3 3.0 Not Available [facility] (Lab) [address] [place], [address], 02/09/2023 06:58:43 02/10/2002/09/2023 CBC/C OMPLE TE BLD COUNT W/DIF F mean RBC HGB concentratio n 33.5 g/dL 31.0-3 6.0 Not Available [facility] (Lab) [address] [place], [address], 02/09/2023 06:58:43 02/10/2002/09/2023 CBC/C OMPLE TE BLD COUNT W/DIF F red cell distribution width 12.4 % 11.8-1 5.5 Not Available [facility] (Lab) [address] [place], [address], 02/09/2023 06:58:43 02/10/20 23 02/09/2023 CBC/C OMPLE TE BLD COUNT W/DIF F platelets 303 x10'3 /uL 150-40 0 Not Available [facility] (Lab) [address] [place], [address], 02/09/2023 06:58:43 02/10/2002/09/2023 CBC/C OMPLE TE BLD COUNT W/DIF F mean platelet volume 9.7 fL 9.0-12 .4 Not Available [facility] (Lab) [address] [place], [address], 02/09/2023 06:58:43 02/10/2002/09/2023 CBC/C OMPLE TE BLD COUNT W/DIF F neutrophils 44.1 % 39.0-7 2.0 Not Available [facility] (Lab) [address] [place], [address], 02/09/2023 06:58:43 02/10/2002/09/2023 CBC/C OMPLE TE BLD COUNT W/DIF F lymphocytes 45.6 % 16.0-4 7.0 Not Available [facility] (Lab) [address] [place], [address], 02/09/2023 06:58:43 02/10/2002/09/2023 CBC/C OMPLE TE BLD COUNT W/DIF F monocytes 5.0 % 5.0-12 .0 Not Available [facility] (Lab) [address] [place], [address], 02/09/2023 06:58:43 02/10/2002/09/2023 CBC/C OMPLE TE BLD COUNT W/DIF F eosinophils 3.9 % 1.0-7. 0 Not Available [facility] (Lab) [address] [place], [address], 02/09/2023 06:58:43 02/10/2002/09/2023 CBC/C OMPLE TE BLD COUNT W/DIF F basophils 1.0 % 0.0-2. 0 Not Available [facility] (Lab) [address] [place], [address], 02/09/2023 06:58:43 02/10/2002/09/2023 CBC/C OMPLE TE BLD COUNT W/DIF F immature granulocytes 0.4 % 0.00-0 .50 Not Available [facility] (Lab) [address] [place], [address], 02/09/2023 06:58:43 02/10/2002/09/2023 CBC/C OMPLE TE BLD COUNT W/DIF F neutrophils, absolute count 3.52 x10'3 /uL 1.5-8. 0 Not Available [facility] (Lab) [address] [place], [address], 02/09/2023 06:58:43 02/10/2002/09/2023 CBC/C OMPLE TE BLD COUNT W/DIF F lymphocytes, absolute count 3.64 x10'3 /uL 1.07-3 .43 high Not Available [facility] (Lab) [address] [place], [address], 02/09/2023 06:58:43 02/10/2002/09/2023 CBC/C OMPLE TE BLD COUNT W/DIF F monocytes, absolute count 0.40 x10'3 /uL 0.29-0 .99 Not Available [facility] (Lab) [address] [place], [address], 02/09/2023 06:58:43 02/10/20 23 02/09/2023 CBC/C OMPLE TE BLD COUNT W/DIF F eosinophils, absolute count 0.31 x10'3 /uL 0.02-0 .53 Not Available [facility] (Lab) [address] [place], [address], 02/09/2023 06:58:43 02/10/20 23 02/09/2023 CBC/C OMPLE TE BLD COUNT W/DIF F basophils, absolute count 0.08 x10'3 /uL 0.01-0 .08 Not Available [facility] (Lab) [address] [place], [address], 02/09/2023 06:58:43 02/10/20 23 02/09/2023 CBC/C OMPLE TE BLD COUNT W/DIF F immature granulocytes ,absolute 0.03 x10'3 /uL 0.00-0 .05 Not Available [facility] (Lab) [address] [place], [address], 02/09/2023 06:58:43 02/10/20 23 02/09/2023 CBC/C OMPLE TE BLD COUNT W/DIF F nucleated red blood cells 0.0 % -0 Not Available [facility] (Lab) [address] [place], [address], 02/09/2023 06:58:43 02/10/20 23 02/09/2023 CBC/C OMPLE TE BLD COUNT W/DIF F NRBC# 0.00 x10'3 /uL Not Available [facility] (Lab) [address] [place], [address], 02/09/2023 06:58:43 02/10/20 23 02/09/2023 URINE HCG QUAL/ POINT OF CARE ur preg NEGATI VE TESTI NG PERFO RMED BY SURGI CAROLYN SERVI THONY PERSO NNEL. Not Available [facility] (Lab) [address] [place], [address], 02/09/2023 07:03:22 02/10/20 23 02/09/2023 URINE HCG QUAL/ POINT OF CARE lot no. [id number] Not Available [facility] (Lab) [address] [place], [address], 02/09/2023 07:03:22 02/10/20 23 02/09/2023 URINE HCG QUAL/ POINT OF CARE pos QC POSITI VE Not Available [facility] (Lab) [address] [place], [address], 02/09/2023 07:03:22 02/10/2002/09/2023 URINE HCG QUAL/ POINT OF CARE neg QC NEGATI VE Not Available [facility] (Lab) [address] [place], [address], 02/09/2023 07:03:22 02/10/20 23 02/09/2023 COMPR EHENS LUISITO METAB OLIC PANEL sodium 141 mmol/ L 137-14 5 Not Available [facility] (Lab) [address] [place], [address], 02/09/2023 07:13:48 02/10/20 23 02/09/2023 COMPR EHENS LUISITO METAB OLIC PANEL potassium 4.0 mmol/ L 3.5-5. 1 Not Available [facility] (Lab) [address] [place], [address], 02/09/2023 07:13:48 02/10/20 23 02/09/2023 COMPR EHENS LUISITO METAB OLIC PANEL chloride 107 mmol/ L 98-107 Not Available [facility] (Lab) [address] [place], [address], 02/09/2023 07:13:48 02/10/20 23 02/09/2023 COMPR EHENS LUISITO METAB OLIC PANEL carbon dioxide 24 mmol/ L 22-30 Not Available [facility] (Lab) [address] [place], [address], 02/09/2023 07:13:48 02/10/2002/09/2023 COMPR EHENS LUISITO METAB OLIC PANEL anion gap 14.0 mmol/ L 14-22 Not Available [facility] (Lab) [address] [place], [address], 02/09/2023 07:13:48 02/10/20 23 02/09/2023 COMPR EHENS LUISITO METAB OLIC PANEL glucose 89 mg/dL 70-99 Not Available [facility] (Lab) [address] [place], [address], 02/09/2023 07:13:48 02/10/20 23 02/09/2023 COMPR EHENS LUISITO METAB OLIC PANEL BUN 20 mg/dL 8-19 high Not Available [facility] (Lab) [address] [place], [address], 02/09/2023 07:13:48 02/10/20 23 02/09/2023 COMPR EHENS LUISITO METAB OLIC PANEL creatinine 0.60 mg/dL 0.30-1 .00 Not Available [facility] (Lab) [address] [place], [address], 02/09/2023 07:13:48 02/10/2002/09/2023 COMPR EHENS LUISITO METAB OLIC PANEL GFR >60 Refer ence Range : [place] ge GFR Healt hy Adult : >60 [...] calcu lator is avail able on the [facility] websi te: https ://ww w.kid aicha.o rg/pr ofess ional s/kdo qi/gf r_cal culat or Not Available [facility] (Lab) [address] [place], [address], 02/09/2023 07:13:48 02/10/20 23 02/09/2023 COMPR EHENS LUISITO METAB OLIC PANEL alkaline phosphatase 48 U/L 38-126 Not Available [facility] (Lab) [address] [place], [address], 02/09/2023 07:13:48 02/10/20 23 02/09/2023 COMPR EHENS LUISITO METAB OLIC PANEL alanine aminotransfe rase 28 U/L 0-35 Not Available [facility] (Lab) [address] [place], [address], 02/09/2023 07:13:48 02/10/20 23 02/09/2023 COMPR EHENS LUISITO METAB OLIC PANEL aspartate aminotransfe rase 24 U/L 14-37 Not Available [facility] (Lab) [address] [place], [address], 02/09/2023 07:13:48 02/10/20 23 02/09/2023 COMPR EHENS LUISITO METAB OLIC PANEL bilirubin, total 0.50 mg/dL 0.20-1 .30 Not Available [facility] (Lab) [address] [place], [address], 02/09/2023 07:13:48 02/10/20 23 02/09/2023 COMPR EHENS LUISITO METAB OLIC PANEL calcium 9.5 mg/dL 8.4-10 .2 Not Available [facility] (Lab) [address] [place], [address], 02/09/2023 07:13:48 02/10/20 23 02/09/2023 COMPR EHENS LUISITO METAB OLIC PANEL total protein 7.4 g/dL 6.1-8. 0 Not Available [facility] (Lab) [address] [facility] [place], [address], 02/09/2023 07:13:48 02/10/20 23 02/09/2023 COMPR EHENS LUISITO METAB OLIC PANEL albumin 4.9 g/dL 3.4-5. 0 Not Available [facility] (Lab) [address] [place], [address], 02/09/2023 07:13:48 02/10/20 23 02/09/2023 COMPR EHENS LUISITO METAB OLIC PANEL globulin 2.5 g/dL 2.6-4. 2 low Not Available [facility] (Lab) [address] [place], [address], 02/09/2023 07:13:48 02/10/20 23 02/09/2023 COMPR EHENS LUISITO METAB OLIC PANEL A/G ratio 2.0 ratio 1.0-2. 0 Not Available [facility] (Lab) [address] [place], [address], 02/09/2023 07:13:48 12/31/19 23 12/27/2022 US, abdom en, limit ed No observ ation record ed. BARCODE Not Available 2022 15:47:47 01/14/20 23 01/13/2023 NM, hepat obili manuela scan, w/ CCK No observ ation record ed. [email or web address] [facility] [address] [facility], [place], [address], 01/13/2023 12:56:29 Result Notes None recorded. Problems Name Problem SNOMED Code Status Onset Date Resolution Date Notes Provider Name and Address Organization Details Recorded Time Abdominal pain 44961180 Active 023 Esteban dang MD [address], [address], [employer] 3 13:36:11 Biliary dyskinesia 680803185 Active 023 Esteban dang MD [address], [address], [employer] 3 13:59:47 Problem Notes None recorded. Procedures Surgical History Date Name Laterality Status Provider Name and Address Organization Details Recorded Time 02/10/20 23 Cholecystectomy completed Aliyah Higgins MA [employer] 02/21/2023 10:43:07 Imaging Results None recorded. Procedure [...] /min 167.64 cm 98 % 36.5 kg/m2 185657. 88 g 98 [degF] 120 mm[Hg] 74 mm[Hg] Patty Mendez DC [employer] [facility] [employer] [facility] 11:45:01 Date Recorded Body height Body mass index (BMI) Body mass index (BMI) Percentile per age and sex Body weight Body temperature Heart rate Respiratory rate Oxygen saturation Oxygen saturation in Arterial blood by Pulse oximetry Systolic blood pressure Diastolic blood pressure Provider Name and Address Organization Details Last Updated DateTime 3 167.64 cm 36.5 kg/m2 98 % 607315. 88 g 98 [degF] 75 /min 14 /min 98 % 98 % 120 mm[Hg] 74 mm[Hg] Patty Mendez DC - S [place] [employer] [facility] 11:22:24 Social History None recorded. Functional Status None recorded. Mental Status None recorded. Family History Relationship Description Onset Age of this Age Resolved Age Notes LastModified by Organization Details LastModified Time Mother Cholecystect tasha Diabet ic [email or web address] Not available 01/04/2023 11:46:10 Medical History Condition Response ASTHMA Y HEADACHES/MIGRAINES Y Gynecological HistoryNo gynecological history recorded. Obstetrics History GPAL:G 0 P 0 0 0 0 Past Encounters Encounter ID Performer Location Encounter Start Date Encounter Closed Date Diagnosis/Indication Diagnosis SNOMED-CT Code Diagnosis ICD10 Code Diagnosis Note [id number] Esteban levin MD [facility] General Surgery [address] [place] [address] 01/04/2023 11:25:29 01/04/2023 12:32:38 Abdominal pain 37833712 R10.9 [id number] Esteban levin MD [facility] General Surgery [address] [place] [address] 01/20/2023 11:19:18 01/20/2023 12:04:56 Biliary dyskinesia 581462441 K82.8 Health Concerns Section Related Observation LastModified by Organization Detai ls LastModified Time None Recorded Concern Status LastModified by Organization Details LastModified Time None Recorded Advance Directives Directive None Recorded Payers Encounter Date Sequence Insurance Name Policy Number Policy Perez Covered Member ID Perez Member ID Guarantor Name 01/04/2023 1 [facility] (MEDICAID REPLACEMENT - HMO) [id number] Irina Garcia [id number] Irina Garcia 01/20/2023 1 [facility] (MEDICAID REPLACEMENT - HMO) [id number] Irina Garcia [id number] Irina Garcia Notes Date Note Type [...] Sandoval MD [address], [address], [place], [address], [employer] 01/04/2023 13:36:20 01/20/2023 text/html patient continue s to have right upper quadrant pain associated with meals. Has been there for approximately a month. Has had a weight loss of approximately 80 lb in the last Few months secondary to improve diet. Denies nausea vomiting fevers chills or any other constitutional symptoms Esteban Sandoval MD [address], [place], [address], [employer] 01/20/2023 14:00:13 OBGyn Episode No OBEpisode recorded.
--- OUTSIDE RECORDS SUMMARY | 2025-03-07 10:13 | XMS_ITS | Clinical Summary ---
Author Organization [facility] Address [address] [place] [address] Care Team Providers Care Billing Control Clerk Name Role Phone Unavailable Primary Care Provider Unavailabl e Source Comments [facility],non-owned Affiliates and Associated Physician Practices is amultiple site organization consisting of ambulatory clinics and hospital sitesin [place], [place], [place] and [place]. This disclosure is being madepursuant to the Care Everywhere program and may not contain all information available regarding this patient. Last updated 18.[facility] Allergies No known active allergies Medications * [...] tablet by mouth every 12 hours Active Active Problems Problem Noted Date Diagnosed Date Obesity affecting , antepartum 03/06/20 25 Chronic hypertension affecting 025 28 weeks gestation of 03/06/2025 Estimated Date of Delivery Comme nts Yes 05/12/2025 Based on last me nstrual period of 08/05/2024 Encounters * This document contains information received from the source organization and may not represent a complete record from that organization. Date Type Department Care Team Description 03/06/2025 2:30 PM CDT - 03/06/2025 11:59 PM CDT Hospital Encounter [facility] [address] [place] [phone] Head, Katlyn Tai MD Discharge Disposition: Home or Self Care 03/01/2025 Telephone [facility] [address] [place] [phone] Daniela Gonsales, [place] Results (NIPT results. LM for patient to CB. ) 02/18/2025 Telephone [facility] [address] [place] [phone] Daniela Gonsales RN Future Appointment (Called patient to review EKG/ECHO appt scheduled at [facility] with date/time/address and Neurology to call. ) 02/15/2025 Travel 02/13/2025 1:02 PM CDT - 02/13/2025 11:59 PM CDT Hospital Encounter [facility] [address] [place] [id number] Srinivasan Blankenship MD Discharge Disposition: Home or Self Care 02/13/2025 1:00 PM CDT - 02/13/2025 1:01 PM CDT Hospital Encounter [facility] [address] [place] [phone] Srinivasan Blankenship MD Discharge Disposition: Home or Self Care 01/30/2025 11:59 PM CDT Hospital Encounter [facility] [address] [place] [phone] Srinivasan Blankenship MD Discharge Disposition: Home or Self Care 01/08/2025 Travel 12/28/2024 8:15 AM CDT - 12/28/2024 11:59 PM CDT Hospital Encounter [facility] [address] [place] [phone] Desean Allen MD Discharge Disposition: Home or [...] on file Legal Sex Female 2:46 PM [employer] Gender Identity Not on file Sexual Orientation Not on file Last Filed Vital Signs Vital Sign Reading Time Taken Comments Blood Pressure 124/62 03/06/2025 2:58 PM CDT Pulse 105 03/06/2025 2:58 PM CDT Temperature - - Respiratory Rate - - Oxygen Saturation 100% 03/06/2025 2:58 PM CDT Inhaled Oxygen Concentration - - Weight 139.3 kg (307 lb) 03/06/2025 2:58 PM CDT Height 170.2 cm (5' 7) 02/13/2025 1:59 PM CDT Body Mass Index 48.08 02/13/2025 1:59 PM CDT Plan of Treatment Upcoming Encounters Date Type Department Care Team (Late st Contact Info) Description 03/14/2025 8:30 AM CDT Appointment [facility] [address] [place] [address] 03/14/2025 8:30 AM CDT Appointment [address] [address] 03/14/2025 1:[address] [facility] [address] [place] [address] 03/14/2025 2:[address] [facility] [address] [place] [address] 03/27/2025 1:00 PM CDT Appointment [facility] [address] [place] [address] 04/03/2025 1:45 PM CDT Appointment [facility] [address] [place] [address] 04/10/2025 1:45 PM CDT Appointment [facility] [address] [place] [phone] 04/17/2025 1:45 PM CDT Appointment [facility] [address] [place] [phone] 04/24/2025 1:45 PM CDT Appointment [facility] [address] [place] [phone] 05/01/2025 1:45 PM CDT Appointment [facility] [address] [place] [phone] Health Maintenance Due Date Last Done Comments [...] 10/03/2024 OB-ONE HOUR GLUCOSE 02/03/2025 OB-TDAP CURRENT 02/10/20252022, 01/27/2016 OB-RHOGAM INJECTION 02/17/2025 INFLUENZA VACCINE (Season Ended) [...] Associated Diagnosis Comments SONOGRAM - COMPLETE Routine 03/06/2025 3:56 PM CDT Chronic hypertension affecting (HCC) 28 weeks gestation of (HCC) Encounter for ultrasound to assess growth (HCC) Severe obesity due to excess calories affecting in second trimester (HCC) Encounter for follow-up ultrasound of anatomy (HCC) SONOGRAM - COMPLETE Routine 02/13/2025 1:00 PM CDT Obesity affecting , antepartum, unspecified obesity type (HCC) Encounter for follow-up ultrasound of anatomy (HCC) Encounter for ultrasound to assess growth (HCC) 27 weeks gestation of (HCC) Gestational hypertension, second trimester (HCC) SONOGRAM - COMPLETE Routine 12/28/2024 8:17 AM CDT Obesity affecting , antepartum, unspecified obesity type Encounter for anatomic survey 21 weeks gestation of from Last 3 Months Results * SONOGRAM - COMPLETE (03/06/2025 3:56 PM CDT) Only the most recent of3 resultswithin the time period is included. Linked Results Indication ======== Incomplete anatomy, cHTN vs gHTN (BP normal at 12 weeks & elevated at 17 weeks) on labetalol Obesity in (pre- class III, BMI 44.5), Asthma on albuterol History ====== OB History 1 Lab Tests Test Date Result Not performed Maternal Assessment Physical Exam Height 170 cm, 5 ft 7 in. Initial weight 129 kg, 284 lb. Initial BMI 44.48 kg/m Method ====== Transabdominal ultrasound. View: Poor view ========= Durán . Number of fetuses: 1 Dating ====== Date Details Gest. age ROCKY LMP 08/05/2024 30 w + 3 d 05/12/2025 Stated ROCKY 30 w + 3 d 05/12/2025 Previous U/S 09/14/2024 GA, GA 5 w + 5 d 30 w + 3 d 05/12/2025 U/S 03/06/2025 based upon AC, BPD, Femur, HC 32 w + 0 d 05/01/2025 Assigned dating based on the LMP, selected on 12/28/2024 30 w + 3 d 05/12/2025 General Evaluation Cardiac activity present. FHR 135 bpm. Presentation: footling breech Placenta: Placental site: anterior Umbilical cord: Cord vessels: 3 vessel cord. Insertion site: normal insertion Amniotic fluid: Amount of AF: normal. MVP 6.1 cm. EMERSON 15.6 cm. Q1 6.1 cm, Q2 3.0 cm, Q3 2.1 cm, Q4 4.4 cm Biometry BPD 80.0 mm 32w 1d 86% Hadlock HC 287.1 mm 31w 4d 46% Hadlock AC 288.4 mm 32w 6d 96% Hadlock Femur 60.6 mm 31w 4d 66% Hadlock Humerus 58.4 mm 33w 6d >99% Michael HC / AC 1.00 Weight Calculation: EFW 1,935 g 91% Hadlock EFW (lb,oz) 4 lb 4 oz EFW by Hadlock ([id number]-FL) accelerated Growth Overview Exam date GA BPD (mm) HC (mm) AC (mm) FL (mm) HL (mm) EFW (g) 12/28/2024 20w 5d 50.1 68% 187.6 58% 161 60% 34.5 47% 37.4 98% 396 63% 02/13/2025 27w 3d 72.8 89% 265.5 69% 234.8 54% 52.3 48% 50.4 93% 1162 61% 03/06/2025 30w 3d 80 86% 287.1 46% 288.4 96% 60.6 66% 58.4 >99% 1935 91% Anatomy The following structures appear normal: Abdomen Stomach. Kidneys. Bladder. The following structures could not be adequately visualized: Face Lips. Profile. Nose. Orbits. Heart / Thorax 4-chamber view. Aortic arch view. Ductal arch view. Interventricular septum. Great vessels. Right lung. Left lung. Extremities / Skeleton Left hand. The following structures were documented previously: Head / Neck Cranium. Lateral ventricles. Choroid plexus. Midline falx. Cavum septi pellucidi. Cerebellum. Cisterna magna. Thalami. Nuchal fold. Face Nasal bone. Heart / Thorax RVOT view. LVOT view. 3-vessel view. 8-ihprme-rnrmcpy view. Situs. Bicaval view. Diaphragm. Abdomen Cord insertion. Bowel. Genitals. Spine Cervical spine. Thoracic spine. Lumbar spine. Sacral spine. Extremities / Skeleton Arms. Right hand. Legs. Feet. sex: female. Impression ========= Single, live, intrauterine at 30w 3d The size is accelerated. The amniotic fluid volume is normal. No major malformations were seen within the limitations of ultrasound Comment ======== ultrasound alone cannot detect all structural, genetic, or functional , placental, or maternal abnormalities Follow-up ======== Follow up ultrasound in 2 weeks to begin weekly testing Repeat ultrasound evaluation of growth in 4 weeks. echo as scheduled on 03/14/25 Coding ====== Procedures [id number]: US Preg Uterus Follow Up [facility] PACS Anatomical Region Laterality Modality Other 03/06/2025 3:56 PM CDT Niki Natarajan MD [facility] ORDERABLES Edited Result - Final from Last 3 Months Insurance [facility]
--- OUTSIDE RECORDS SUMMARY | 2025-03-07 10:13 | XMS_ITS | Encounter Summary ---
Author Organization [facility] Address [address] [place] [address] Care Team Providers Care Process Assistant Name Role Phone Unavailable Primary Care Provider Unavailabl e Reason for Referral * (Routine) - Open Specialty Diagnoses / Procedures Referred By Sheridan sauer Referred To Contact Diagnoses Chronic hypertension affecting (HCC) 28 weeks gestation of (HCC) Encounter for ultrasound to assess growth (HCC) Severe obesity due to excess calories affecting in second trimester (HCC) Encounter for follow-up ultrasound of anatomy (HCC) Procedures SONOGRAM - COMPLETE Niki Natarajan MD [address] [place] [address] Phone: tel: fax: Referral ID Status Reason Start Date Expiration Date Visits Re quested Visits Authorized [id number] Open 02/27/2025 02/27/2026 1 1 * (Routine) - Open Specialty Diagnoses / Procedures Referred By Sheridan sauer Referred To Contact Diagnoses Chronic hypertension affecting (HCC) 28 weeks gestation of (HCC) Encounter for ultrasound to assess growth (HCC) Severe obesity due to excess calories affecting in second trimester (HCC) Encounter for follow-up ultrasound of anatomy (HCC) Procedures SONOGRAM - COMPLETE Niki Natarajan MD [address] [place] [address] Phone: tel: fax: Referral ID Status Reason Start Date Expiration Date Visits Re quested Visits Authorized [id number] Open 02/27/2025 02/27/2026 1 1 Reason for Visit * Reason Comments Ultrasound Maternal Medicine Follow-up * Evaluate & Treat (Routine) - Authorized Specialty Diagnoses / Procedures Referred By Contsharon t Referred To Contact Maternal Medicine Diagnoses Obesity complicating , unspecified trimester (HCC) Gestational hypertension (HCC) Procedures OH FULL ROUT OBSTE CARE,VAGINAL Kyle Ortiz MD [address] [address] [place] [address] Phone: tel: fax: [facility] [address] [place] [address] Phone: tel: fax: Referral ID Status Reason Start Date Expiration Date V isits Requested Visits Authorized [id number] Authorized 01/28/2025 06/12/2025 18 18 Encounter Details Date Type Department Care Team (Latest Contact Info) Description 03/06/2025 2:30 PM CDT - 03/06/2025 11:59 PM CDT Hospital Encounter [facility] [place] [id number] Head, Katlyn Tai MD [address] [facility] [address] [place] [address] Discharge Disposition: Home or Self Care Social History Tobacco Use Types Packs/Day Years Used Date Smoking Tobacco: Never Smokeless Tobacco: Never Alcohol Use Standard Drinks/Week Comments Not Currently 0 (1 standard drink = 0.6 oz pur e alcohol) Estimated Date of Delivery Comme nts Yes 05/12/2025 Based on last me nstrual period of 08/05/2024 Sex and Gender Information Value Date Recorded Sex Assigned at Not on file 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 Gender Identity Not on file Sexual Orientation Not on file documented as of this encounter Last Filed Vital Signs Vital Sign Reading Time Taken Comments Blood Pressure 124/62 03/06/2025 2:58 PM CDT Pulse 105 03/06/2025 2:58 PM CDT Temperature - - Respiratory Rate - - Oxygen Saturation 100% 03/06/2025 2:58 PM CDT Inhaled Oxygen Concentration - - Weight 139.3 kg (307 lb) 03/06/2025 2:58 PM CDT Height - - Body Mass Index 48.08 02/13/2025 1:59 PM CDT documented in this encounter Medications at Time of Discharge albuterol HFA (Proventil; Ventolin; Proair) 108 (90 Base) MCG/ACT inhaler Inhale 2 (two) puffs by mouth every 6 hours as needed for Shortness of Breath aspirin (Aspirin) 81 MG chew tablet Take 2 (two) tablets by mouth once daily (chew and swallow) labetalol (Normodyne; Trandate) 200 MG tablet Take 1 (one) tablet by mouth every 12 hours Vit-DSS-Fe Fum-FA ( vitamin with iron) tablet Take 1 (one) tablet by mouth once daily documented as of this encounter Progress Notes * Daniela Gonsales RN - 03/06/2025 3:46 PM CDT Patient here for provider visit and ultrasound. Denies contractions, denies vaginal bleeding, leakage of fluid, and reports good movement. RN reviewed preeclampsia precautions. Denies headache, blurred vision, RUQ pain. Patient reports she was seen in past week at [facility] for elevated blood pressure of 150's/100's, and her primary OB increased her Labetalol 200mg BID to 200mg TID. RN to request records fromDr. Natarajan's office. Patient informed NIPT results are low risk. Patient only has one documented blood pressure on 02/18/25 of 131/82, pulse 89. Patient instructed to record her daily blood pressures for review by OB and MFM in future. Patient reports she has FU primary OB appt on 03/19/25. Patient has not done her GCT yet she reports she is doing it this week. Patient Vitals for the past 6 hrs: Pulse BP 03/06/25 1458 105 124/62 Requested records from [facility] regarding patient's elevated blood pressure evaluation on Tuesday03/04/25. Daniela Gonsales RN 03/06/2025 3:49 PM Per commercial truck driver baby EFW increased by approx. 30% in 3 weeks. Patient is unable to come twice a week in 2 weeks due to [address] from home. Patient scheduled out weekly starting in 3 weeks until delivery. Will review schedule and discuss with CODING COMPLIANCE SPECIALIST then reach out to patient on Tuesday and see if we can arrange something in 2 weeks to get javan the schedule. Daniela Gonsales RN 03/06/2025 4:47 PM * Yohana Jin, STUFFER-ELECTRICAL POWER ENGINEER - 03/06/2025 2:41 PM CDT WHNP follow up visit Irina Garcia is a 19 year old 30w3d. We are following her for cHTN and obesity. She has no complaints today. Reports compliance with Labetalol. Reports going to the hospital recently for an elevated BP of 150s/100 while at work using a different machine. States BP was 130s/80s on home cuff but went to the hospital for evaluation. States they increased her Labetalol to 200mg TID but has not started it yet. States she has a MITTAL today but has not taken anything yet. Reports mildswelling in her feet, She reports good FM, no bleeding, no LOF, no DC, no cramps/contractions/pain/pressure, no MITTAL's, vision changes, RUQ pain. Genetic screening/testing: Low Risk NIPT Her is complicated by: Patient Active Problem List Diagnosis Date Noted Obesity affecting , antepartum (HCC) 03/06/2025 Priority: Not Prioritized Chronic hypertension affecting (HCC) 03/06/2025 Priority: Not Prioritized 28 weeks gestation of (HCC) 03/06/2025 Priority: Not Prioritized Exam: BP 124/62 Pulse 105 Wt (!) 139.3 kg (307 lb) SpO2 100% General: NAD Abdomen: soft, NT Extremities: equal in size and width bilaterally, NT, no sign of edema FHT: per US Urine dip: negative glucose, trace ketones, 1+protein, negative blood Labs: 01/02/2025 PCR = 0.24 mg/mg US: Please see report for details. Impressions/Recs 1. IUP (Intrauterine ) at 30w3d 2. cHTN, Dx this Labetalol 200 mg BID, recently increased to TID but not taking. BP WNL today Not checking BP consistently at home. Encouraged to start checking TID to help determine trends andblood pressure medication management. Advised to send logs by email next week. Parameters reviewed in detail The targets of therapy with chronic hypertension are typically <160 mm Hg systolic and 90-105 mmHg diastolic. Aggressive normalization of blood pressure does not have benefit otherwise;it may have an undesirable impact on outcome. Aggressive treatment of hypertension does not reduce the risk for superimposed preeclampsia. Goal blood pressures: Based upon the 2021 CHAP study, ACOG recommends maintaining BP < 140/90 Thus current target goal will be SBP <140 and DBP <90 Thresholds of BP for which she should notify her OB provider: For trends in SBP >= 140 or DBP >= 90 For any SBP >= 160 or DBP >= 110 ASA 162 mg daily until delivery 1x weekly BPP/NST/EMERSON, starting at 32 weeks or sooner as clinically indicated Serial Growth US Delivery (see below), or sooner if medically indicated EKG and maternal ECHO Anesthesiology at planned delivery facility in early 3rd-trimester Records requested from recent hospital visit Orders given today for CBC, CMP, PCR Recommend to follow expert consensus panel and the [place] [employer] (ACOG) that suggested the following approach for delivery of women with chronic hypertension andno superimposed preeclampsia, growth restriction, or abruption (past or current ): 38+0 to 39+6 weeks of gestation for women not requiring medication 37+0 to 39+6 weeks for women with hypertension controlled with medication 36+0 to 37+6 weeks for women with severe hypertension difficult to control The ranges allow for clinician judgment on a [id number] basis, with consideration of factors suchas steady-state levels of and trends in blood pressure, growth and amniotic fluid volume, andcervical status. In the period, continue to monitor for severe-range BP, either by: - An early visit within 7-10 days of delivery, and/or - Continued daily ambulatory BP monitoring & notify provider if BP severe - In the long-term, focus on diet, excercise & attaining normal-range BMI 3.Obesity - Nutrition counseling is appropriate if she has difficulty in keeping her weight down. - Activity/exercise in addition to dietary management is encouraged. - Total weight gain of </= 15 lbs. Active weight loss is not encouraged. - Would benefit from and PP weight loss 4. MITTAL since age 5 Neurology for evaluation of headaches 5. H/o childhood heart murmur & episodes of tachycardia Cardiology for maternal echocardiogram & EKG, scheduled , March 14, 2025 at 1 pm 6. Possible [facility] for echocardiogram. Scheduled March 14 at 8:30am 7. We reviewed kick counts (BID), as well as PTL and preeclampsia signs and symptoms. Advised patient to present to the hospital if her MITTAL is not relieved by Tylenol and hydration. 8. RTC: 2 weeks then weekly CODING COMPLIANCE SPECIALIST/US/NST 9. Keep all appointments with primary OB I spent 35 minutes with the patient, greater than 50% of the time was spent face to face in discussion with the patient the remainder of the time was spent in chart prep and data review. The patient is to follow up with her primary obstetrical care provider for her routine care and acute OB care including delivery as clinically indicated. Once again, we appreciate the opportunity to assist you in the care of your patient. If issues arise for which I can be of help before her next visit here, please contact me directly, or contact one of the [facility] physicians. TAZ Crockett 03/06/2025 3:04 PM documented in this encounter Plan of Treatment Upcoming Encounters Date Type Department Care Team (Late st Contact Info) Description 03/14/2025 8:30 AM CDT Appointment [address] [place] [address] 03/14/2025 8:30 AM CDT Appointment [address] [place] [address] 03/14/2025 1:00 PM CDT Appointment [facility] [address] [place] [id number] 03/14/2025 2:00 PM CDT Appointment [facility] [address] [place] [id number] 03/27/2025 1:00 PM CDT Appointment [facility] [address] [place] [id number] 04/03/2025 1:45 PM CDT Appointment [facility] [address] [place] [phone] 04/10/2025 1:45 PM CDT Appointment [facility] [address] [place] [id number] 04/17/2025 1:45 PM CDT Appointment [facility] [address] [place] [id number] 04/24/2025 1:45 PM CDT Appointment [facility] [address] [place] [id number] 05/01/2025 1:45 PM CDT Appointment [facility] [address] [place] [id number] Scheduled Orders Name Type Priority Associated Diagnoses Orde r Schedule CBC WITH DIFFERENTIAL Lab Routine Chronic hypertension affecting (HCC) 1 Occurrences starting 03/06/2025 until 03/01/2026 COMPREHENSIVE METABOLIC PANEL Lab Routine Chronic hypertension affecting (HCC) 1 Occurrences starting 03/06/2025 until 03/01/2026 PROTEIN CREATININE RATIO URINE RANDOM PNL Lab Routine Chronic hypertension affecting (HCC) Gestational proteinuria in third trimester (HCC) 1 Occurrences starting 03/06/2025 until 03/01/2026 documented as of this encounter Procedures Procedure Name Priority Date/Time Associated Diagnosis Comments SONOGRAM - COMPLETE Routine 03/06/2025 3:56 PM CDT Chronic hypertension affecting (HCC) 28 weeks gestation of (HCC) Encounter for ultrasound to assess growth (HCC) Severe obesity due to excess calories affecting in second trimester ([facility]) Encounter for follow-up ultrasound of anatomy ([facility]) documented in this encounter Results * SONOGRAM - COMPLETE (03/06/2025 3:56 PM CDT) Linked Results Indication ======== Incomplete anatomy, cHTN [...] 4 lb 4 oz EFW by Hadlock ([id number]) accelerated Growth Overview Exam date [place] BPD [...] Thorax RVOT view. LVOT view. 3-vessel view. 3-avkans-fhvvcca view. Situs. Bicaval view. Diaphragm. Abdomen Cord [...] as scheduled on 03/14/25 Coding ====== Procedures [id number]: US Preg Uterus Follow Up [employer] PACS Anatomical Region Laterality Modality Other 03/06/2025 3:56 PM CDT Niki Natarajan MD [facility] ORDERABLES Edited Result - Final documented in this encounter Visit Diagnoses Diagnosis Obesity affecting , antepartum, unspecified obesity type (HCC)- Primary Chronic hypertension affecting (HCC) 28 weeks gestation of (HCC) state, incidental Encounter for ultrasound to assess growth ([facility]) Encounter for follow-up ultrasound of anatomy ([facility]) Gestational proteinuria in third trimester ([facility]) Unspecified antepartum renal disease documented in this encounter
[2025-03-07 11:20] LABS: Basophils Percent Auto 0.5 % (0.2-1.2); Eosinophils Absolute Auto 0.2 K/mm3 (0-0.3); Eosinophils Percent Auto 2.5 % (0-4.4); Hematocrit 36.9 % (37.0-47.0); Hemoglobin 11.6 g/dL (12.0-15.0); Immature Granulocyte Absolute 0.09 K/mm3 (0.00-0.031); Immature Granulocyte Percent A 1.1 % (0-0.5); Lymphocytes Absolute Auto 1.61 K/mm3 (0.9-3.2); Lymphocytes Percent Auto 19.8 % (18.3-44.2); Mean Corpuscular HGB Conc 31.4 g/dl (32-36); Mean Platelet Volume 10.1 fl (7.4-10.4); Monocytes Absolute Auto 0.3 K/mm3 (0.1-0.6); Monocytes Percent Auto 3.7 % (2.6-8.5); Neutrophils Absolute Auto 5.9 K/mm3 (1.3-6.7); Neutrophils Percent Auto 72.4 % (45.5-73.1); Platelet Count Result 236 k/mm3 (150-375); Red Blood Count 4.29 M/mm3 (4.2-5.4); Red Cell Distribution Width 13.7 % (11.5-14.5); White Blood Count 8.1 K/mm3 (4.5-10.0)
[2025-03-07 11:36] LABS: Alanine Aminotransferase 12 U/L (6-35); Albumin Level 3.7 g/dL (3.5-5.1); Alkaline Phosphatase 65 U/L (38-126); Anion Gap 9 mmol/L (4-12); Aspartate Amino Transferase 20 U/L (14-36); Bilirubin,Total 0.5 mg/dL (0.2-1.3); Blood Urea Nitrogen 4 mg/dL (7-17); Calcium 9.2 mg/dL (8.4-10.2); Carbon Dioxide 20 mmol/L (22-30); Chloride 107 mmol/L (98-107); Estimated Glomerular Filt Rate > 60; Glucose 135 mg/dL (65-110); Glucose 1 Hour PP 50gm Dose 135 mg/dL; Potassium 3.3 mmol/L (3.4-5.0); Sodium 136 mmol/L (137-145); Total Protein 6.6 g/dL (6.3-8.2)
[2025-03-07 12:19] LABS: HIV 1/2 Ab P24 Ag Result Negative (Negative)
[2025-03-07 12:32] LABS: Syphilis IgG/IgM Antibody Negative (Negative)
[2025-03-07 12:34] LABS: Creatinine Urine 46.5 mg/dL; Total Protein Urine Random 17 mg/dL; Ur Ttl Prot Creatinine Ratio 0.37 mg/mg (0-0.20)
== END 2025-03-07 09:30 | disposition home or self-care (01) ==
PROVIDERS: PCP Family Medicine; Visit Provider Obstetrics & Gynecology
DX: O10.919 Unspecified pre-existing hypertension complicating pregnancy, unspecified trimester (principal); Z3A.00 Weeks of gestation of pregnancy not specified
CPT/HCPCS: 36415; 80053; 82570; 82947; 84156; 85025; 86593; 86703; G0432

== ENCOUNTER 2025-03-10 19:03 | Outpatient (CLI) | payer OTHER, SELFPAY ==
--- OUTSIDE RECORDS SUMMARY | 2025-03-10 19:08 | XMS_ITS | Clinical Summary ---
Author Organization [facility] Address [address] [place] [address] Phone Care Team Providers Care Forge Operator Helper Name Role Phone Lashon Rees MD Primary Care Provider [phone] Allergies Active Allergy Reactions Criticality Noted Date [...] Active fluticasone 50 MCG/ACT NA SUSP 1 [place] by Nasal route 2 times daily. 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
--- OUTSIDE RECORDS SUMMARY | 2025-03-10 19:08 | XMS_ITS | Data Portability ---
Author Organization [place] [facility] [employer], Main Office Address [address] [place] [address] Assessment Encounter Date Assessment Date Assessment LastModified [...] 8.0 x10'3 /uL 4.2-10 .8 Not Available [facility] (Lab) [address] [place], [address], 02/09/2023 06:58:43 02/10/2002/09/2023 CBC/C OMPLE TE BLD COUNT W/DIF F red blood cells 5.19 x10'6 /uL 3.80-5 .20 Not Available [facility] (Lab) [address] [place], [address], 02/09/2023 06:58:43 02/10/2002/09/2023 CBC/C OMPLE TE BLD COUNT W/DIF F hemoglobin 15.2 g/dL 12.0-1 5.6 Not Available [facility] (Lab) [address] [place], [address], 02/09/2023 06:58:43 02/10/20 23 02/09/2023 CBC/C OMPLE TE BLD COUNT W/DIF F hematocrit 45.4 % 35.7-4 5.7 Not Available [facility] (Lab) [address] [place], [address], 02/09/2023 06:58:43 02/10/2002/09/2023 CBC/C OMPLE TE BLD COUNT W/DIF F mean red cell volume 87.5 fL 82.0-9 9.0 Not Available [facility] (Lab) [address] [place], [address], 02/09/2023 06:58:43 02/10/2002/09/2023 CBC/C OMPLE TE BLD COUNT W/DIF F mean red cell hemoglobin 29.3 pg 27.0-3 3.0 Not Available [facility] (Lab) [address] [place], [address], 02/09/2023 06:58:43 02/10/2002/09/2023 CBC/C OMPLE TE BLD COUNT W/DIF F mean RBC HGB concentratio n 33.5 g/dL 31.0-3 6.0 Not Available [facility] (Lab) [address] [place], [address], 02/09/2023 06:58:43 02/10/2002/09/2023 CBC/C OMPLE TE BLD COUNT W/DIF F red cell distribution width 12.4 % 11.8-1 5.5 Not Available [facility] (Lab) [address] [place], [address], 02/09/2023 06:58:43 02/10/20 23 02/09/2023 CBC/C OMPLE TE BLD COUNT W/DIF F platelets 303 x10'3 /uL 150-40 0 Not Available [facility] (Lab) [address] [place], [address], 02/09/2023 06:58:43 02/10/2002/09/2023 CBC/C OMPLE TE BLD COUNT W/DIF F mean platelet volume 9.7 fL 9.0-12 .4 Not Available [facility] (Lab) [address] [place], [address], 02/09/2023 06:58:43 02/10/2002/09/2023 CBC/C OMPLE TE BLD COUNT W/DIF F neutrophils 44.1 % 39.0-7 2.0 Not Available [facility] (Lab) [address] [place], [address], 02/09/2023 06:58:43 02/10/2002/09/2023 CBC/C OMPLE TE BLD COUNT W/DIF F lymphocytes 45.6 % 16.0-4 7.0 Not Available [facility] (Lab) [address] [place], [address], 02/09/2023 06:58:43 02/10/2002/09/2023 CBC/C OMPLE TE BLD COUNT W/DIF F monocytes 5.0 % 5.0-12 .0 Not Available [facility] (Lab) [address] [place], [address], 02/09/2023 06:58:43 02/10/2002/09/2023 CBC/C OMPLE TE BLD COUNT W/DIF F eosinophils 3.9 % 1.0-7. 0 Not Available [facility] (Lab) [address] [place], [address], 02/09/2023 06:58:43 02/10/2002/09/2023 CBC/C OMPLE TE BLD COUNT W/DIF F basophils 1.0 % 0.0-2. 0 Not Available [facility] (Lab) [address] [place], [address], 02/09/2023 06:58:43 02/10/2002/09/2023 CBC/C OMPLE TE BLD COUNT W/DIF F immature granulocytes 0.4 % 0.00-0 .50 Not Available [facility] (Lab) [address] [place], [address], 02/09/2023 06:58:43 02/10/2002/09/2023 CBC/C OMPLE TE BLD COUNT W/DIF F neutrophils, absolute count 3.52 x10'3 /uL 1.5-8. 0 Not Available [facility] (Lab) [address] [place], [address], 02/09/2023 06:58:43 02/10/2002/09/2023 CBC/C OMPLE TE BLD COUNT W/DIF F lymphocytes, absolute count 3.64 x10'3 /uL 1.07-3 .43 high Not Available [facility] (Lab) [address] [place], [address], 02/09/2023 06:58:43 02/10/2002/09/2023 CBC/C OMPLE TE BLD COUNT W/DIF F monocytes, absolute count 0.40 x10'3 /uL 0.29-0 .99 Not Available [facility] (Lab) [address] [place], [address], 02/09/2023 06:58:43 02/10/20 23 02/09/2023 CBC/C OMPLE TE BLD COUNT W/DIF F eosinophils, absolute count 0.31 x10'3 /uL 0.02-0 .53 Not Available [facility] (Lab) [address] [place], [address], 02/09/2023 06:58:43 02/10/20 23 02/09/2023 CBC/C OMPLE TE BLD COUNT W/DIF F basophils, absolute count 0.08 x10'3 /uL 0.01-0 .08 Not Available [facility] (Lab) [address] [place], [address], 02/09/2023 06:58:43 02/10/20 23 02/09/2023 CBC/C OMPLE TE BLD COUNT W/DIF F immature granulocytes ,absolute 0.03 x10'3 /uL 0.00-0 .05 Not Available [facility] (Lab) [address] [place], [address], 02/09/2023 06:58:43 02/10/20 23 02/09/2023 CBC/C OMPLE TE BLD COUNT W/DIF F nucleated red blood cells 0.0 % -0 Not Available [facility] (Lab) [address] [place], [address], 02/09/2023 06:58:43 02/10/20 23 02/09/2023 CBC/C OMPLE TE BLD COUNT W/DIF F NRBC# 0.00 x10'3 /uL Not Available [facility] (Lab) [address] [place], [address], 02/09/2023 06:58:43 02/10/20 23 02/09/2023 URINE HCG QUAL/ POINT OF CARE ur preg NEGATI VE TESTI NG PERFO RMED BY SURGI CAROLYN SERVI THONY PERSO NNEL. Not Available [facility] (Lab) [address] [place], [address], 02/09/2023 07:03:22 02/10/20 23 02/09/2023 URINE HCG QUAL/ POINT OF CARE lot no. [id number] Not Available [facility] (Lab) [address] [place], [address], 02/09/2023 07:03:22 02/10/20 23 02/09/2023 URINE HCG QUAL/ POINT OF CARE pos QC POSITI VE Not Available [facility] (Lab) [address] [place], [address], 02/09/2023 07:03:22 02/10/2002/09/2023 URINE HCG QUAL/ POINT OF CARE neg QC NEGATI VE Not Available [facility] (Lab) [address] [place], [address], 02/09/2023 07:03:22 02/10/20 23 02/09/2023 COMPR EHENS LUISITO METAB OLIC PANEL sodium 141 mmol/ L 137-14 5 Not Available [facility] (Lab) [address] [place], [address], 02/09/2023 07:13:48 02/10/20 23 02/09/2023 COMPR EHENS LUISITO METAB OLIC PANEL potassium 4.0 mmol/ L 3.5-5. 1 Not Available [facility] (Lab) [address] [place], [address], 02/09/2023 07:13:48 02/10/20 23 02/09/2023 COMPR EHENS LUISITO METAB OLIC PANEL chloride 107 mmol/ L 98-107 Not Available [facility] (Lab) [address] [place], [address], 02/09/2023 07:13:48 02/10/20 23 02/09/2023 COMPR EHENS LUISITO METAB OLIC PANEL carbon dioxide 24 mmol/ L 22-30 Not Available [facility] (Lab) [address] [place], [address], 02/09/2023 07:13:48 02/10/2002/09/2023 COMPR EHENS LUISITO METAB OLIC PANEL anion gap 14.0 mmol/ L 14-22 Not Available [facility] (Lab) [address] [place], [address], 02/09/2023 07:13:48 02/10/20 23 02/09/2023 COMPR EHENS LUISITO METAB OLIC PANEL glucose 89 mg/dL 70-99 Not Available [facility] (Lab) [address] [place], [address], 02/09/2023 07:13:48 02/10/20 23 02/09/2023 COMPR EHENS LUISITO METAB OLIC PANEL BUN 20 mg/dL 8-19 high Not Available [facility] (Lab) [address] [place], [address], 02/09/2023 07:13:48 02/10/20 23 02/09/2023 COMPR EHENS LUISITO METAB OLIC PANEL creatinine 0.60 mg/dL 0.30-1 .00 Not Available [facility] (Lab) [address] [place], [address], 02/09/2023 07:13:48 02/10/2002/09/2023 COMPR EHENS LUISITO METAB OLIC PANEL GFR >60 Refer ence Range : Ector ge GFR Healt hy Adult : >60 [...] calcu lator is avail able on the [facility] websi te: https ://ww w.kid aicha.o rg/pr ofess ional s/kdo qi/gf r_cal culat or Not Available [facility] (Lab) [address] [place], [address], 02/09/2023 07:13:48 02/10/20 23 02/09/2023 COMPR EHENS LUISITO METAB OLIC PANEL alkaline phosphatase 48 U/L 38-126 Not Available [facility] (Lab) [address] [place], [address], 02/09/2023 07:13:48 02/10/20 23 02/09/2023 COMPR EHENS LUISITO METAB OLIC PANEL alanine aminotransfe rase 28 U/L 0-35 Not Available [facility] (Lab) [address] [place], [address], 02/09/2023 07:13:48 02/10/20 23 02/09/2023 COMPR EHENS LUISITO METAB OLIC PANEL aspartate aminotransfe rase 24 U/L 14-37 Not Available [facility] (Lab) [address] [place], [address], 02/09/2023 07:13:48 02/10/20 23 02/09/2023 COMPR EHENS LUISITO METAB OLIC PANEL bilirubin, total 0.50 mg/dL 0.20-1 .30 Not Available [facility] (Lab) [address] [place], [address], 02/09/2023 07:13:48 02/10/20 23 02/09/2023 COMPR EHENS LUISITO METAB OLIC PANEL calcium 9.5 mg/dL 8.4-10 .2 Not Available [facility] (Lab) [address] [place], [address], 02/09/2023 07:13:48 02/10/20 23 02/09/2023 COMPR EHENS LUISITO METAB OLIC PANEL total protein 7.4 g/dL 6.1-8. 0 Not Available [facility] (Lab) [address] [place], [address], 02/09/2023 07:13:48 02/10/20 23 02/09/2023 COMPR EHENS LUISITO METAB OLIC PANEL albumin 4.9 g/dL 3.4-5. 0 Not Available [facility] (Lab) [address] [place], [address], 02/09/2023 07:13:48 02/10/20 23 02/09/2023 COMPR EHENS LUISITO METAB OLIC PANEL globulin 2.5 g/dL 2.6-4. 2 low Not Available [facility] (Lab) [address] [place], [address], 02/09/2023 07:13:48 02/10/20 23 02/09/2023 COMPR EHENS LUISITO METAB OLIC PANEL A/G ratio 2.0 ratio 1.0-2. 0 Not Available [facility] (Lab) [address] [place], [address], 02/09/2023 07:13:48 12/31/19 23 12/27/2022 US, abdom en, limit ed No observ ation record ed. BARCODE Not Available 2022 15:47:47 01/14/20 23 01/13/2023 NM, hepat obili manuela scan, w/ CCK No observ ation record ed. [email or web address] [facility] [address] [facility], [place], [address], 01/13/2023 12:56:29 Result Notes None recorded. Problems Name Problem SNOMED Code Status Onset Date Resolution Date Notes Provider Name and Address Organization Details Recorded Time Abdominal pain 43954039 Active 023 Esteban dang MD [address], [address], [employer] 3 13:36:11 Biliary dyskinesia 980685934 Active 023 Esteban dang MD [address], [address], [employer] 3 13:59:47 Problem Notes None recorded. Procedures Surgical History Date Name Laterality Status Provider Name and Address Organization Details Recorded Time 02/10/20 23 Cholecystectomy completed Aliyah Higgins MA [employer] 02/21/2023 10:43:07 Imaging Results None recorded. Procedure [...] /min 167.64 cm 98 % 36.5 kg/m2 497749. 88 g 98 [degF] 120 mm[Hg] 74 mm[Hg] Patty Mendez MT [employer] [facility] [employer] [facility] 11:45:01 Date Recorded Body height Body mass index (BMI) Body mass index (BMI) Percentile per age and sex Body weight Body temperature Heart rate Respiratory rate Oxygen saturation Oxygen saturation in Arterial blood by Pulse oximetry Systolic blood pressure Diastolic blood pressure Provider Name and Address Organization Details Last Updated DateTime 3 167.64 cm 36.5 kg/m2 98 % 684502. 88 g 98 [degF] 75 /min 14 /min 98 % 98 % 120 mm[Hg] 74 mm[Hg] Patty Mendez [place] - S [place] [facility] [employer] 11:22:24 Social History None recorded. Functional Status None recorded. Mental Status None recorded. Family History Relationship Description Onset Age of this Age Resolved Age Notes LastModified by Organization Details LastModified Time Mother Cholecystect tasha Diabet ic [email or web address] Not available 01/04/2023 11:46:10 Medical History Condition Response HEADACHES/MIGRAINES Y ASTHMA Y Gynecological HistoryNo gynecological history recorded. Obstetrics History GPAL:G 0 P 0 0 0 0 Past Encounters Encounter ID Performer Location Encounter Start Date Encounter Closed Date Diagnosis/Indication Diagnosis SNOMED-CT Code Diagnosis ICD10 Code Diagnosis Note [id number] Esteban levin MD [facility] General Surgery [address] [place] [address] 01/04/2023 11:25:29 01/04/2023 12:32:38 Abdominal pain 59072760 R10.9 [id number] [facility] General Surgery [address] [place] [address] 01/20/2023 11:19:18 01/20/2023 12:04:56 Biliary dyskinesia 270489516 K82.8 Health Concerns Section Related Observation LastModified by Organization Detai ls LastModified Time None Recorded Concern Status LastModified by Organization Details LastModified Time None Recorded Advance Directives Directive None Recorded Payers Encounter Date Sequence Insurance Name Policy Number Policy Perez Covered Member ID Perez Member ID Guarantor Name 01/04/2023 1 [facility] (MEDICAID REPLACEMENT - HMO) [id number] Irina Garcia [id number] Irina Garcia 01/20/2023 1 [facility] (MEDICAID REPLACEMENT - HMO) [id number] Irina Garcia [id number] Irina Garcia Notes Date Note Type [...] Sandoval MD [address], [address], [place], [address], [employer] 01/04/2023 13:36:20 01/20/2023 text/html patient continue s to have right upper quadrant pain associated with meals. Has been there for approximately a month. Has had a weight loss of approximately 80 lb in the last Few months secondary to improve diet. Denies nausea vomiting fevers chills or any other constitutional symptoms Esteban Sandoval MD [address], [place], [address], [employer] 01/20/2023 14:00:13 OBGyn Episode No OBEpisode recorded.
--- OUTSIDE RECORDS SUMMARY | 2025-03-10 19:09 | XMS_ITS | Clinical Summary ---
Author Organization [facility] [employer] Address [address] [address] Care Team Providers Care Artificial Limb Fitter Name Role Phone Unavailable Primary Care Provider Unavailabl e Source Comments [facility] [employer],non-owned Affiliates and Associated Physician Practices is amultiple site organization consisting of ambulatory clinics and hospital sitesin [place], [place], [place] and [place]. This disclosure is being madepursuant to the Care Everywhere program and may not contain all information available regarding this patient. Last updated 18[employer] Allergies No known active allergies Medications * [...] - 03/06/2025 11:59 PM CDT Hospital Encounter [facility] [address] [place] [address] Head, Katlyn Tai MD Discharge Disposition: Home or Self Care 03/01/2025 Telephone [facility] [address] [place] [phone] Daniela Gonsales, [place] Results (NIPT results. LM for patient to CB. ) 02/18/2025 Telephone [facility] [address] [place] [address] Daniela Gonsales RN Future Appointment (Called patient to review EKG/ECHO appt scheduled at [facility] with date/time/address and Neurology to call. ) 02/15/2025 Travel 02/13/2025 1:02 PM CDT - 02/13/2025 11:59 PM CDT Hospital Encounter [facility] [address] [place] [address] Srinivasan Blankenship MD Discharge Disposition: Home or Self Care 02/13/2025 1:00 PM CDT - 02/13/2025 1:01 PM CDT Hospital Encounter [facility] [address] [place] [address] Srinivasan Blankenship MD Discharge Disposition: Home or Self Care 01/30/2025 11:59 PM CDT Hospital Encounter [facility] [address] [place] [address] Srinivasan Blankenship MD Discharge Disposition: Home or Self Care 01/08/2025 Travel 12/28/2024 8:15 AM CDT - 12/28/2024 11:59 PM CDT Hospital Encounter [facility] [address] [place] [address] Desean Allen MD Discharge Disposition: Home or [...] on file Legal Sex Female 2:46 PM QUALIFIED [employer] WORK[employer] Gender Identity Not on file Sexual Orientation [...] Info) Description 03/14/2025 8:30 AM CDT Appointment [facility] [address] [place] [address] 03/14/2025 8:30 AM CDT Appointment [address] [address] 03/14/2025 1:00 PM CDT Appointment [facility] [address] [place] [address] 03/14/2025 2:00 PM CDT Appointment [facility] [address] [place] [address] 03/20/2025 12:40 PM CDT Hospital Encounter [facility] [address] [place] [address] 03/27/2025 1:00 PM CDT Appointment [facility] [address] [place] [address] 04/03/2025 1:45 PM CDT Appointment [facility] [address] [place] [address] 04/10/2025 1:45 PM CDT Appointment [facility] [address] [place] [address] 04/17/2025 1:45 PM CDT Appointment [facility] [address] [place] [address] 04/24/2025 1:45 PM CDT Appointment [facility] [address] [place] [address] 05/01/2025 1:45 PM CDT Appointment [facility] [address] [place] [address] Health Maintenance Due Date Last Done Comments [...] 4 lb 4 oz EFW by [employer] ([id number]-UB-[id number]-FL) accelerated Growth Overview Exam date [place] BPD [...] Thorax RVOT view. LVOT view. 3-vessel view. 5-ucwszy-exsxchk view. Situs. Bicaval view. Diaphragm. Abdomen Cord [...] as scheduled on 03/14/25 Coding ====== Procedures 66004: US Preg Uterus Follow Up [employer] PACS Anatomical Region Laterality Modality Other 03/06/2025 3:56 PM CDT Niki Natarajan MD [facility] ORDER[facility] Edited Result - Final from Last [address] [place] [address] [place] [address]
--- OUTSIDE RECORDS SUMMARY | 2025-03-10 19:09 | XMS_ITS | Data Portability ---
Author Organization [facility], [address] ([place]) Address [address] [address] Care Team Providers Care Equal Opportunity Representative Name Role Phone SUZANNE MEDINA Primary Care Provider Assessment Encounter Date Assessment Date Assessment LastModified by Organization Details LastModified Time 09/05/2024 09/05/2024 1. Discussed the patient s . She is currently just using her albuterol as needed. No other medications. We discussed foods to avoid, medications to avoid, etc. Discussed obviously I do not provide [facility] care and she would like to be seen in [facility]. We will go ahead and place a [...] Lab test, urine 2023 024 [email or web address] 3 [facility], [facility] [address], [address], 4 16:36:43 Referral obstetricia n and gynecologis t [facility] [address], [place], [address], 4 17:16:09 Procedures None recorded. Surgeries None recorded. Imaging None recorded. Medication Orders None recorded. Patient TargetsNo targets recorded. Patient InstructionsNo instructions recorded. Reason for Referral Repacker And Gynecologis t Referral for test positive Referring Physician: Suzanne Medina, Family Medicine, Encounter Date: 09/05/2024 Results Created Date Observation Date Name Description Value Unit Range Abnormal Flag Note LastModifiedBy Organization Detail LastModifiedTime 09/05/20 24 09/05/2024 pregn jacklyn test, urine urine POSITI VE negati ve abnormal (SENS ITIVI TY >99%) (SPEC IFICI TY >99%) Not Available [facility] [address] [place] [address], [id number], 09/05/2024 16:23:39 09/11/20 24 09/11/2024 beta- HCG, quant itati ve, serum or plasm a beta-HCG quantitative 20397 mIU/m L 0-5 mIU/m L Negat julianne for pregn jacklyn 6-24 mIU/m L Indet ermin ate >25 mIU/m L Posit julianne for pregn jacklyn Not Available [facility] [address] [place] [address], [id number], 09/11/2024 15:55:51 09/13/20 24 09/13/2024 beta- HCG, quant itati ve, serum or plasm a beta-HCG quantitative 33885 mIU/m L 0-5 mIU/m L Negat julianne for pregn jacklyn 6-24 mIU/m L Indet ermin ate >25 mIU/m L Posit julianne for pregn jacklyn Not Available [facility] [address] [place] [address], [id number], 09/13/2024 15:37:10 09/17/20 24 09/17/2024 beta- HCG, quant itati ve, serum or plasm a beta-HCG quantitative 68802 mIU/m L 0-5 mIU/m L Negat julianne for pregn jacklyn 6-24 mIU/m L Indet ermin ate >25 mIU/m L Posit julianne for pregn jacklyn Not Available [facility] [address] [place] [address], [place], [address], 09/17/2024 15:41:53 Result Notes None recorded. Problems Name Problem SNOMED Code Status Onset Date Resolution Date Notes Provider Name and Address Organization Details Recorded Time Heart murmur 24059479 Active 024 Suzanne Medina MD [address] [place] [address], [id number] , [facility] 4 16:31:56 Obesity 134932000 Active 024 [facility] 4 17:06:50 Weight gain 7979447 Active 024 [facility] 4 17:07:07 Problem Notes None recorded. [...] DateTime 170.18 cm 41.8 kg/m2 99 % 424950. 16 g 97.9 [degF] 20 /min 99 % 99 % 102 /min 128 mm[Hg] 80 mm[Hg] Charlee Barbour [facility] 16:15:39 Social History None recorded. Functional Status None recorded. Mental Status None recorded. Family History Nothing Reported. Medical History No medical history recorded. Gynecological HistoryNo gynecological history recorded. Obstetrics History GPAL:G 0 P 0 0 0 0 Immunizations Vaccine Type Date Status Note Provider Nam e and Address Organization Details Recorded Time Hib, unspecified formulation [address] [facility] 09/05/2024 16:15:45 Hib, unspecified formulation [address] [facility] 09/05/2024 16:15:45 Hib, unspecified formulation [address] [facility] 09/05/2024 16:15:45 MMR [address] [facility] 09/05/2024 16:15:45 MMR [address] [facility] 09/05/2024 16:15:45 pneumococcal conjugate PCV 7 [address] [facility] 09/05/2024 16:15:45 pneumococcal conjugate PCV 7 [address] [facility] 09/05/2024 16:15:45 pneumococcal conjugate PCV 7 [address] [facility] 09/05/2024 16:15:45 pneumococcal conjugate PCV 7 [address] [facility] 09/05/2024 16:15:45 DTaP-IPV [address] [facility] 09/05/2024 16:15:45 influenza, unspecified formulation 5 completed Charlee Barbour null, [facility] 09/05/2024 16:15:45 influenza, unspecified formulation 5 completed Charlee Barbour null, [facility] 09/05/2024 16:15:45 Tdap 6 completed [facility] 09/05/[facility]24 16:15:45 Tdap 3 completed [facility] 09/05/2024 16:15:45 varicella 6 completed [facility] 09/05/2024 16:15:45 varicella 9 completed [facility] 09/05/2024 16:15:45 Influenza, split virus, trivalent, preservative 6 completed [facility] 09/05/2024 16:15:45 Meningococcal MCV4O 2 completed [facility] 09/05/2024 16:15:45 meningococcal MCV4P 6 completed [facility] 09/05/2024 16:15:45 DTaP 6 completed [facility] 09/05/2024 16:15:45 DTaP-Hep B-IPV 5 completed Charlee Barbour null, [facility] 09/05/2024 16:15:45 DTaP-Hep B-IPV 5 completed Charlee Barbour null, [facility] 09/05/2024 16:15:45 DTaP-Hep B-IPV 5 completed [facility] 09/05/[facility]24 16:15:45 Past Encounters Encounter ID Performer Location Encounter Start Date Encounter Closed Date Diagnosis/Indication Diagnosis SNOMED-CT Code Diagnosis ICD10 Code Diagnosis Note [id number] Suzanne Medina MD [facility] ([place]) [address] [place] [address] 09/05/2024 16:07:20 09/05/2024 16:52:01 Amenorrhea 75032317 N91.2 test positive 128383219 Z32.01 Health Concerns Section Related Observation LastModified by Organization Detai ls LastModified Time None Recorded Concern Status LastModified by Organization Details LastModified Time None Recorded Advance Directives Directive None Recorded Payers Insurance Date Sequence Insurance Name Policy Number Policy Perez Covered Member ID Perez Member ID Guarantor Name 09/05/2024 1 [facility] (MEDICAID REPLACEMENT - HMO) [id number] Irina Garcia [id number] Irina Garcia 09/05/2024 1 *SELF PAY* kendrick Garcia Notes Date Note Type Note Provider Name and Address Organization Details Recorded Time 09/05/2024 text/html The patient is here today because she had a positive home test on 09/02/24. She thinks she started her last period around 07/31/24. She is feeling well and denies any concerns. Suzanne Medina MD [address] [place] [address], [phone], [facility] 09/10/2024 15:04:09 OBGyn Episode No OBEpisode recorded.
[2025-03-10 19:28] VITALS: BP 137/82; PULSE 97
[2025-03-10 19:46] VITALS: BP 119/71; PULSE 95
[2025-03-10 19:47] LABS: Basophils Percent Auto 0.4 % (0.2-1.2); Eosinophils Absolute Auto 0.3 K/mm3 (0-0.3); Eosinophils Percent Auto 2.8 % (0-4.4); Hematocrit 34.1 % (37.0-47.0); Lymphocytes Absolute Auto 2.28 K/mm3 (0.9-3.2); Lymphocytes Percent Auto 22.4 % (18.3-44.2); Mean Corpuscular HGB Conc 32.3 g/dl (32-36); Mean Corpuscular Hemoglobin 27.2 pg (26-34); Mean Corpuscular Volume 84.4 fl (80-100); Mean Platelet Volume 10.1 fl (7.4-10.4); Monocytes Absolute Auto 0.6 K/mm3 (0.1-0.6); Monocytes Percent Auto 5.5 % (2.6-8.5); Neutrophils Absolute Auto 6.9 K/mm3 (1.3-6.7); Neutrophils Percent Auto 67.9 % (45.5-73.1); Platelet Count Result 238 k/mm3 (150-375); Red Blood Count 4.04 M/mm3 (4.2-5.4); Red Cell Distribution Width 13.7 % (11.5-14.5); White Blood Count 10.2 K/mm3 (4.5-10.0)
[2025-03-10 19:57] LABS: Alanine Aminotransferase 12 U/L (6-35); Albumin Level 3.7 g/dL (3.5-5.1); Alkaline Phosphatase 68 U/L (38-126); Anion Gap 8 mmol/L (4-12); Aspartate Amino Transferase 18 U/L (14-36); Bilirubin,Total 0.5 mg/dL (0.2-1.3); Blood Urea Nitrogen 6 mg/dL (7-17); Calcium 10.1 mg/dL (8.4-10.2); Carbon Dioxide 19 mmol/L (22-30); Chloride 109 mmol/L (98-107); Estimated Glomerular Filt Rate > 60; Glucose 109 mg/dL (65-110); Potassium 3.5 mmol/L (3.4-5.0); Sodium 136 mmol/L (137-145); Total Protein 6.7 g/dL (6.3-8.2); Uric Acid 3.3 mg/dL (2.5-7.5)
[2025-03-10 20:01] VITALS: BP 127/69; PULSE 98
[2025-03-10 20:09] LABS: Add Urine Microscopic? YES; Appearance Urine Cloudy (Clear); Bacteria Urine 4+ /hpf; Bilirubin Urine Negative (Negative); Blood Urine Negative (Negative); Color Urine Yellow (Yellow); Glucose Urine UA Negative (Negative); Ketones Urine Negative (Negative); Leukocyte Esterase Ur 3+ LEU/UL (Negative); Need Manual Microscopic Reviewed; Nitrate Urine Negative (Negative); Protein Urine Negative (Negative); RBC Urine 0-2 /hpf (0-2); Specific Grav Ur 1.011 (1.001-1.035); Squamous Epithelial Cell Urine Occasional /hpf (Few); Urobilinogen Urine 0.2 mg/dL (<2.0); WBC Urine 21-50 /hpf (0-3); pH Urine 6.5 (5.0-9.0)
[2025-03-10 20:16] VITALS: BP 125/65; PULSE 92
[2025-03-10 20:24] LABS: Creatinine Urine 60.7 mg/dL; Total Protein Urine Random 22 mg/dL; Ur Ttl Prot Creatinine Ratio 0.36 mg/mg (0-0.20)
== END 2025-03-10 20:30 | disposition home or self-care (01) ==
LOC: ANHOBOP 19:06 → ANHLDR 19:08
PROVIDERS: Obstetrics & Gynecology; PCP Family Medicine; Visit Provider Student in an Organized Health Care Education/Training Program
DX: O13.9 Gestational [pregnancy-induced] hypertension without significant proteinuria, unspecified trimester (principal); Z3A.00 Weeks of gestation of pregnancy not specified
CPT/HCPCS: 36415; 80053; 81001; 82570; 84156; 84550; 85025; 87086

== ENCOUNTER 2025-03-19 09:08 | Outpatient (CLI) | payer OTHER, SELFPAY ==
--- OUTSIDE RECORDS SUMMARY | 2025-03-19 09:44 | XMS_ITS | Clinical Summary ---
Author Organization [employer] Address [address] [place] [address] Care Team Providers Care Garde Manger Name Role Phone Unavailable Primary Care Provider Unavailabl e Source Comments [employer],non-owned Affiliates and Associated Physician Practices is amultiple site organization consisting of ambulatory clinics and hospital sitesin [place], [place], [place] and [place]. This disclosure is being madepursuant to the Care Everywhere program and may not contain all information available regarding this patient. Last updated 18.[employer] Allergies No known active allergies Medications * [...] organization. Date Type Department Care Team Description 03/14/2025 1:12 PM CDT - 03/14/2025 11:59 PM CDT Hospital Encounter [facility] [address] [place] [id number] Srinivasan Blankenship MD Discharge Disposition: Home or Self Care 03/14/2025 1:00 PM CDT - 03/14/2025 1:11 PM CDT Hospital Encounter [facility] [address] [place] [phone] Srinivasan Blankenship MD Discharge Disposition: Home or Self Care 03/14/2025 9:29 AM CDT - 03/14/2025 12:59 PM CDT Hospital Encounter [address] [address] Joselyn Flanagan MD Buchanan, Christopher Q, MD IS ANALYST Discharge Disposition: Home or Self Care 03/14/2025 8:28 AM CDT - 03/14/2025 9:28 AM CDT Hospital Encounter [address] [address] Joselyn Flanagan MD 03/14/2025 8:28 AM CDT Hospital Encounter [address] [address] Joselyn Flanagan MD Discharge Disposition: Home or Self Care 03/06/2025 2:30 PM CDT - 03/06/2025 11:59 PM CDT Hospital Encounter [facility] [address] [place] [phone] Head, Katlyn Tai MD Discharge Disposition: Home or Self Care 03/01/2025 Telephone [facility] [address] [place] [phone] Daniela Gonsales, RN Results (NIPT results. LM for patient to CB. ) 02/18/2025 Telephone [facility] [address] [place] [phone] Daniela Gonsales RN Future Appointment (Called patient to review EKG/ECHO appt scheduled at [facility] with date/time/address and Neurology to call. ) 02/15/2025 Travel 02/13/2025 1:02 PM CDT - 02/13/2025 11:59 PM CDT Hospital Encounter [facility] [address] [place] [phone] Srinivasan Blankenship MD Discharge Disposition: Home or Self Care 02/13/2025 1:00 PM CDT - 02/13/2025 1:01 PM CDT Hospital Encounter [facility] [address] [place] [phone] Srinivasan Blankenship MD Discharge Disposition: Home or Self Care 01/30/2025 11:59 PM CDT Hospital Encounter [facility] [address] [place] [phone] Srinivasan Blankenship MD Discharge Disposition: Home or Self Care 01/08/2025 Travel 12/28/2024 8:15 AM CDT - 12/28/2024 11:59 PM CDT Hospital Encounter [facility] [address] [place] [phone] Desean Allen MD Discharge Disposition: Home or [...] on file 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 Gender Identity Not on file Sexual Orientation Not on file Last Filed Vital Signs Vital Sign Reading Time Taken Comments Blood Pressure 110/75 03/14/2025 9:47 AM CDT Pulse 93 03/14/2025 9:47 AM CDT Temperature - - Respiratory Rate - - Oxygen Saturation 100% 03/06/2025 2:58 PM CDT Inhaled Oxygen Concentration - - Weight 140 kg (308 lb 10.3 oz) 03/14/2025 9:47 A M CDT Height 170.2 cm (5' 7) 02/13/2025 1:59 PM CDT Body Mass Index 48.34 02/13/2025 1:59 PM CDT Plan of Treatment Upcoming Encounters Date Type Department Care Team (Late st Contact Info) Description 03/20/2025 12:40 PM CDT Hospital Encounter [facility] [address] [place] [phone] 03/27/2025 1:00 PM CDT Appointment [facility] [address] [place] [phone] 04/03/2025 1:45 PM CDT Appointment [facility] [address] [place] [phone] 04/10/2025 1:45 PM CDT Appointment [facility] [address] [place] [address] 04/17/2025 1:45 PM CDT Appointment [facility] [address] [place] [phone] 04/24/2025 1:45 PM CDT Appointment [facility] [address] [place] [address] 05/01/2025 1:45 PM CDT Appointment [facility] [address] [place] [phone] Health Maintenance Due Date Last Done Comments [...] Procedure Name Priority Date/Time Associated Diagnosis Comments ECHO COMPLETE Routine 03/14/2025 2:08 PM CDT 27 weeks gestation of (HCC) Heart murmur during (HCC) EKG 12-LEAD Routine 03/14/2025 1:10 PM CDT 27 weeks gestation of (HCC) Heart murmur during (HCC) ECHO COMPLETE CG Routine 03/14/2025 10:25 AM CDT 27 weeks gestation of (HCC) Heart murmur during (HCC) Anomaly of heart of fetus affecting , antepartum, single or unspecified fetus (HCC) BIOPHYSICAL PROFILE W NST Routine 03/14/2025 9:32 AM CDT Obesity affecting , antepartum, unspecified obesity type (HCC) Chronic hypertension affecting (HCC) 32 weeks gestation of (HCC) Chronic hypertension with superimposed preeclampsia (HCC) Gestational diabetes mellitus (GDM), antepartum, gestational diabetes method of control unspecified (HCC) Encounter for ultrasound (HCC) Encounter for other screening follow-up (HCC) SONOGRAM - COMPLETE Routine 03/06/2025 3 :56 PM CDT Chronic hypertension affecting (HCC) 28 weeks gestation of (HCC) Encounter for ultrasound to assess growth (HCC) Severe obesity due to excess calories affecting in second trimester (HCC) Encounter for follow-up ultrasound of anatomy (HCC) SONOGRAM - COMPLETE Routine 02/13/2025 1 :00 [...] of from Last 3 Months Results * ECHO COMPLETE (03/14/2025 2:08 PM CDT) Pathologist [facility] AV area index 0.93 cm /m SSM CV FUJI PACS Dimensionless Index 0.602 unitless SSM CV FUJI PACS LA area A4C 23.6 cm SSM CV FUJI PACS LA AREA (2C) 20.4 cm SSM CV FUJI PACS Myocardial strain charge 2 unitless SSM CV FUJI PACS IVSd 2D 1.128 cm SSM CV FUJ I PACS LVIDd 4.423 cm SSM CV FUJ I PACS LVIDs 2.699 cm SSM CV FUJ I PACS LVOT diam 2.05 cm SSM CV FUJ I PACS LVPWd 1.099 cm SSM CV FUJ I PACS LV biplane EF 72.116 % SSM CV FUJI PACS LV A2C EF 75.801 % SSM CV FUJ I PACS LV A4C EF 70.745 % SSM CV FUJ I PACS LV EDV A2C 197.562 ml SSM CV FU JI PACS LV EDV A4C 199.714 ml SSM CV FU JI PACS LV ESV A2C 47.808 ml SSM CV FU JI PACS LV ESV A4C 58.426 ml SSM CV FU JI PACS LVOT pk grad 4.202 mmHg SSM CV FUJI PACS LVOT pk micah 108.148 cm/s SSM CV F UJI PACS LVOT VTI 21.335 cm SSM CV FUJ I PACS LA size 4.363 cm SSM CV FUJ I PACS AV area pk micah 1.861 cm SSM CV FUJI PACS AV area cont VTI 1.986 cm SSM CV FUJI PACS AV pk grad 12.803 mmHg SSM CV FU JI PACS AV mn grad 6.33 mmHg SSM CV FU JI PACS AV pk micah 191.766 cm/s SSM CV FUJ I PACS AV VTI 35.454 cm SSM CV FUJ I PACS MV A pk micah 100.343 cm/s SSM CV F UJI PACS MV E pk micah 104.096 cm/s SSM CV F UJI PACS PV pk micah 121.233 cm/s SSM CV FUJ I PACS Anatomical Region Laterality Modality Ultrasound 03/14/2025 1:21 PM CDT Narrative 03/14/2025 3:37 PM CDT Summary * The left ventricle is normal in size with hyperdynamic systolic function and an estimated ejection fraction of 70-75% by visual estimate. Left ventricular wall motion is normal. * The left ventricular diastolic function is normal. * Right ventricle is normal in size with normal systolic function. * Unable to assess pulmonary pressures due to a lack of tricuspid and pulmonic regurgitation. Patient Info Name: Irina Garcia Age: 19 years : 2005 Gender: Female Ht: 308 in Wt: 67 lb BSA: 2.13 m2 HR: 97 bpm BP: 144 / 83 mmHg Exam Date: 03/14/2025 1:21 PM Patient Status: O/P Study Site: [facility] Primary Location: [facility] EStudy Info Exam Type: ECHO COMPLETE Indications Z3A.27 - 27 weeks gestation of ([facility]) R01.1 - Heart murmur during ([facility]) O26.899 - Heart murmur during ([facility]) Procedure(s) * A complete 2D, color Doppler, spectral Doppler, and M-Mode transthoracic echocardiogram was performed. Reason for Technically Difficult Study: body habitus Staff Referring Physician: Srinivasan Blankenship Ordering Provider: Srinivasan Blankenship Attending Physician: Srinivasan Blankenship Showroom Sales Consultant: Kaylie He Left Ventricle The left ventricle is normal in size. Left ventricular systolic function is hyperdynamic with an estimated ejection fraction of 70-75% by visual estimate. The left ventricular mass is mildly increased. Left ventricular segmental wall motion is normal. The left ventricular diastolic function is normal. Right Ventricle The right ventricle is normal in size. Right ventricular systolic function is normal. Left Atrium The left atrium is normal in size. Right Atrium The right atrium is normal in size. Atrial Septum Intact interatrial septum visualized by 2D and color Doppler imaging. Aortic Valve The aortic valve is trileaflet. There is no aortic valve stenosis. There is no aortic valve regurgitation. Pulmonic Valve The pulmonic valve is normal. There is no pulmonic valve stenosis. There is no pulmonic regurgitation. Mitral Valve The mitral valve is normal. There is no mitral valve stenosis. There is no mitral valve regurgitation. Tricuspid Valve The tricuspid valve is normal. There is trace tricuspid valve regurgitation. Unable to assess pulmonary pressures due to a lack of tricuspid and pulmonic regurgitation. Inferior Vena Cava The inferior vena cava is normal in size (< 2.1 cm). There is < 50% collapse of the IVC upon inspiration with an estimated right atrial pressure of 8 mmHg. Pericardium/Pleural There is no pericardial effusion. Aorta The aortic root at the sinus of Valsalva is normal in size. The ascending aorta is normal in size. Measurements Left Ventricular Outflow Tract Name Value Normal LVOT 2D LVOT Diameter 2.0 cm LVOT Area 3.3 cm2 LVOT Doppler LVOT Peak Velocity 1.1 m/s LVOT Peak Gradient 4 mmHg LVOT Mean Velocity 79.23 cm/s LVOT Mean Gradient 3 mmHg LVOT VTI 21.3 cm LVOT VTI/AV VTI Ratio 0.6 LVOT Stroke Volume 70 ml LVOT Stroke Volume Index 33 ml/m2 LVOT CO 5.7 l/min LVOT CI 2.7 l/min/m2 Pulmonic Valve Name Value Normal PV Doppler PV Peak Velocity 1.2 m/s PV Peak Gradient 6 mmHg PV Accel Time 69.20 ms Mitral Valve Name Value Normal MV Doppler MV PHT 27 ms MV Area (PHT) 8.13 cm2 MV Diastolic Function MV E Peak Velocity 1.0 m/sec 0.6-1.3 MV A Peak Velocity 1.0 m/sec 0.2-0.7 MV E/A 1.0 1.2-3.6 MV Decel Time (PW) 93 ms Tricuspid Valve Name Value Normal Estimated PAP/RSVP RA Pressure 8 mmHg Aorta Name Value Normal Ascending Aorta Ao Root Diameter (2D) 2.6 cm 2.4-3.7 Ao Root Diam Index (2D) 1.2 cm/m2 Aortic Valve Name Value Normal AV Doppler AV Peak Velocity 1.92 m/s AV Peak Gradient 13 mmHg AV Mean Gradient 6 mmHg AV VTI 35 cm AV Area (Cont Eq VTI) 1.99 cm2 AV Area (Cont Eq Micah) 1.86 cm2 AV DI (VTI) 0.60 AV DI (Micah) 0.56 AV Regurgitation 2D LVOT Area 3.30 cm2 Ventricles Name Value Normal LV Dimensions 2D/MM IVS Diastolic Thickness (2D) 1.1 cm 0.7-1.1 LVID Diastole (2D) 4.4 cm 4.7-6.1 LVPW Diastolic Thickness (2D) 1.1 cm 0.7-1.1 LVID Systole (2D) 2.7 cm 2.9-4.1 LV Mass (2D Cubed) 173 g 123-210 LV Mass Index (2D Cubed) 81 g/m2 Relative Wall Thickness (2D) 0.50 LV Fractional Shortening/Ejection Fraction 2D/MM LV Fractional Shortening (2D) 39 % 28-42 LV EF (2D Teicholz) 70 % LV Diastolic Volume (4C MOD) 200 ml LV EF (4C MOD) 71 % LV Diastolic Volume (2C MOD) 198 ml LV EF (2C MOD) 76 % LV Diastolic Volume (BP MOD) 202 ml LV Diastolic Volume Index (BP MOD) 95 ml/m2 LV Systolic Volume (BP MOD) 56 ml LV Systolic Volume Index (BP MOD) 26 ml/m2 LV EF (BP MOD) 72 % LV Diastolic Length (4C) 10.3 cm 7.5-10.2 LV Systolic Length (4C) 6.5 cm 6.0-8.6 LV Stroke Volume (4C MOD) 141 ml Atria Name Value Normal LA Dimensions LA Dimension (2D) 4.4 cm 2.7-4.2 LA Dimen Index (2D) 2.0 cm/m2 LA Area (4C) 24 cm2 14-28 LA Area (2C) 20 cm2 13-29 LA Volume (4C MOD) 79 ml LA Volume (2C MOD) 57 ml LA Volume (4C A-L) 81 ml LA Volume (2C A-L) 58 ml LA Volume (BP A-L) 70 ml 37-110 LA Volume Index (BP A-L) 33 ml/m2 Report Signatures Finalized by Jeffrey Costello on 03/14/2025 03:37 PM Procedure Note Jeffrey Costello MD - 03/14/2025 Summary * The left ventricle is normal in size with hyperdynamic systolicfunction and an estimated ejection fraction of 70-75% by visual estimate. Left ventricular wall motion is normal. * The left ventricular diastolic function is normal. * Right ventricle is normal in size with normal systolic function. * Unable to assess pulmonary pressures due to a lack of tricuspid and pulmonic regurgitation. Patient Info Name: Irina Garcia Age: 19 years : 2005 Gender: Female Ht: 308 in Wt: 67 lb BSA: 2.13 m2 HR: 97 bpm BP: 144 / 83 mmHg Exam Date: 03/14/2025 1:21 PM Patient Status: O/P Study Site: [facility] Primary Location: [facility] EStudy Info Exam Type: ECHO COMPLETE Indications Z3A.27 - 27 weeks gestation of (HCC) R01.1 - Heart murmur during (HCC) O26.899 - Heart murmur during (HCC) Procedure(s) * A complete 2D, color Doppler, spectral Doppler, and M-Modetransthoracic echocardiogram was performed. Reason for Technically Difficult Study: body habitus Staff Referring Physician: Srinivasan Blankenship Ordering Provider: Srinivasan Blankenship Attending Physician: Srinivasan Blankenship Showroom Sales Consultant: Kaylie He Left Ventricle The left ventricle is normal in size. Left ventricular systolic functionis hyperdynamic with an estimated ejection fraction of 70-75% by visualestimate. The left ventricular mass is mildly increased. Left ventricular segmentalwall motion is normal. The left ventricular diastolic function is normal. Right Ventricle The right ventricle is normal in size. Right ventricular systolicfunction is normal. Left Atrium The left atrium is normal in size. Right Atrium The right atrium is normal in size. Atrial Septum Intact interatrial septum visualized by 2D and color Doppler imaging. Aortic Valve The aortic valve is trileaflet. There is no aortic valve stenosis. Thereis no aortic valve regurgitation. Pulmonic Valve The pulmonic valve is normal. There is no pulmonic valve stenosis. Thereis no pulmonic regurgitation. Mitral Valve The mitral valve is normal. There is no mitral valve stenosis. There isno mitral valve regurgitation. Tricuspid Valve The tricuspid valve is normal. There is trace tricuspid valveregurgitation. Unable to assess pulmonary pressures due to a lack of tricuspid andpulmonic regurgitation. Inferior Vena Cava The inferior vena cava is normal in size (< 2.1 cm). There is < 50%collapse of the IVC upon inspiration with an estimated right atrial pressure of 8mmHg. Pericardium/Pleural There is no pericardial effusion. Aorta The aortic root at the sinus of Valsalva is normal in size. Theascending aorta is normal in size. Measurements Left Ventricular Outflow Tract Name Value Normal LVOT 2D LVOT Diameter 2.0 cm LVOT Area 3.3 cm2 LVOT Doppler LVOT Peak Velocity 1.1 m/s LVOT Peak Gradient 4 mmHg LVOT Mean Velocity 79.23 cm/s LVOT Mean Gradient 3 mmHg LVOT VTI 21.3 cm LVOT VTI/AV VTI Ratio 0.6 LVOT Stroke Volume 70 ml LVOT Stroke Volume Index 33 ml/m2 LVOT CO 5.7 l/min LVOT CI 2.7 l/min/m2 Pulmonic Valve Name Value Normal PV Doppler PV Peak Velocity 1.2 m/s PV Peak Gradient 6 mmHg PV Accel Time 69.20 ms Mitral Valve Name Value Normal MV Doppler MV PHT 27 ms MV Area (PHT) 8.13 cm2 MV Diastolic Function MV E Peak Velocity 1.0 m/sec 0.6-1.3 MV A Peak Velocity 1.0 m/sec 0.2-0.7 MV E/A 1.0 1.2-3.6 MV Decel Time (PW) 93 ms Tricuspid Valve Name Value Normal Estimated PAP/RSVP RA Pressure 8 mmHg Aorta Name Value Normal Ascending Aorta Ao Root Diameter (2D) 2.6 cm 2.4-3.7 Ao Root Diam Index (2D) 1.2 cm/m2 Aortic Valve Name Value Normal AV Doppler AV Peak Velocity 1.92 m/s AV Peak Gradient 13 mmHg AV Mean Gradient 6 mmHg AV VTI 35 cm AV Area (Cont Eq VTI) 1.99 cm2 AV Area (Cont Eq Micah) 1.86 cm2 AV DI (VTI) 0.60 AV DI (Micah) 0.56 AV Regurgitation 2D LVOT Area 3.30 cm2 Ventricles Name Value Normal LV Dimensions 2D/MM IVS Diastolic Thickness (2D) 1.1 cm 0.7-1.1 LVID Diastole (2D) 4.4 cm 4.7-6.1 LVPW Diastolic Thickness (2D) 1.1 cm 0.7-1.1 LVID Systole (2D) 2.7 cm 2.9-4.1 LV Mass (2D Cubed) 173 g 123-210 LV Mass Index (2D Cubed) 81 g/m2 Relative Wall Thickness (2D) 0.50 LV Fractional Shortening/Ejection Fraction 2D/MM LV Fractional Shortening (2D) 39 % 28-42 LV EF (2D Teicholz) 70 % LV Diastolic Volume (4C MOD) 200 ml LV EF (4C MOD) 71 % LV Diastolic Volume (2C MOD) 198 ml LV EF (2C MOD) 76 % LV Diastolic Volume (BP MOD) 202 ml LV Diastolic Volume Index (BP MOD) 95 ml/m2 LV Systolic Volume (BP MOD) 56 ml LV Systolic Volume Index (BP MOD) 26 ml/m2 LV EF (BP MOD) 72 % LV Diastolic Length (4C) 10.3 cm 7.5-10.2 LV Systolic Length (4C) 6.5 cm 6.0-8.6 LV Stroke Volume (4C MOD) 141 ml Atria Name Value Normal LA Dimensions LA Dimension (2D) 4.4 cm 2.7-4.2 LA Dimen Index (2D) 2.0 cm/m2 LA Area (4C) 24 cm2 14-28 LA Area (2C) 20 cm2 13-29 LA Volume (4C MOD) 79 ml LA Volume (2C MOD) 57 ml LA Volume (4C A-L) 81 ml LA Volume (2C A-L) 58 ml LA Volume (BP A-L) 70 ml 37-110 LA Volume Index (BP A-L) 33 ml/m2 Report Signatures Finalized by Jeffrey Costello on 03/14/2025 03:37 PM us Srinivasan Blankenship MD ECHO CUPID Final Result * EKG 12-Lead (03/14/2025 1:10 PM CDT) Ventricular Rate 102 BPM [facility] Atrial Rate 102 BPM [facility] P-R Interval 152 ms [facility] QRS Duration ms 90 ms [facility] Q-T Interval ms 356 ms [facility] QTC Calculation (Bezet) 463 ms [facility] Calculated P [place] 47 degrees [facility] Calculated R [place] 40 degrees [facility] Calculated T [place] 29 degrees [facility] Interpretation EKG SINUS TACHYCARDIA WITH OCCASIONAL PREMATURE VENTRICULAR COMPLEXES NONSPECIFIC T WAVE ABNORMALITY ABNORMAL ECG NO PREVIOUS ECGS AVAILABLE Confirmed by MD NICOLAS, JEFFREY ([id number]) on 03/14/2025 5:49:52 PM [facility]USE 03/14/2025 1:10 PM CDT 03/14/2025 5:49 PM CDT us Srinivasan Blankenship MD ECG ORDERABLES Edited Result - Final [facility] MUSE * ECHO COMPLETE CG (03/14/2025 10:25 AM CDT) MV E pk micah 40.15 cm/s SSM CV F UJI PACS MV A pk micah 63.22 cm/s SSM CV F UJI PACS Anatomical Region Laterality Modality Ultrasound 03/14/2025 8:36 AM CDT Narrative 03/14/2025 4:39 PM CDT Name: Irina Garcia Patient Exam Info Gender: Female Patient Status: O/P : 2005 Admit Date: 03/14/2025 Exam Date/Time: 03/14/2025 8:36 AM Site: [facility] Current Location: CARE EStaffOrdering Provider: Srinivasan Blankenship Interpreting Physician: Joselyn Flanagan MD Showroom Sales Consultant: Tara Haas [facility] Study Info Procedure: ECHO COMPLETE CG Indications: - Screening for cardiovascular condition Maternal Gestational Status GA by EDC: 31 wks , 4 days EDC: 05/12/2025 Type: Durán Age: 19 yrs Lie: Vertex Summary * The echocardiogram was within normal limits. * Small atrial and ventricular septal defects and persistent ductus arteriosus cannot be excluded as findings. Anatomic Relationships Left sided cardiac apex (levocardia). There is normal visceral-cardiac situs, and normal segmental cardiac anatomical relationship. Systemic Veins There is normal systemic venous return. Pulmonary Veins The visualized pulmonary veins drain normally to the left atrium. Right Atrium The right atrial size is normal. Left Atrium The left atrial size is normal. Atrial Septum Patent foramen ovale with open foramen flap. Color flow is right to left. Right Ventricle The right ventricular cavity size is normal. The right ventricular wall thickness is normal. The right ventricular systolic function is normal. RV Outflow Tract The right ventricular outflow tract is normal. Left Ventricle The left ventricular cavity size is normal. The left ventricular wall thickness is normal. The left ventricular systolic function is normal. Ventricular Septum There is no ventricular septal defect with no shunting. LV Outflow Tract The left ventricular outflow tract is normal. Tricuspid Valve The tricuspid valve is structurally normal. The tricuspid inflow pattern is normal. Tricuspid velocity is within the normal range. There is no tricuspid regurgitation. Mitral Valve The mitral valve is structurally normal. The mitral inflow pattern is normal. Mitral velocity is within the normal range. There is no mitral regurgitation. Aorta aortic arch visualized and is without obstruction by 2D, color flow and Doppler. Pulmonary Arteries The main pulmonary artery is normal, with confluent branch pulmonary arteries. Ductus Arteriosus The antegrade flow velocity and pattern in the ductal arch is normal. A normal ductus arteriosus is appreciated. Doppler Flow in the ductus venosus is normal. The umbilical vein flow pattern is normal. The umbilical artery flow pattern is normal. Hydrops Assessment No pericardial effusion. No ascites present. No pleural effusion(s). Rhythm The rhythm is normal. There is 1:1 AV conduction. Pulmonary Valve The pulmonic valve is normal-sized. The transpulmonic velocity is within normal range. There is no pulmonic regurgitation. Aortic Valve The aortic valve is normal-sized. The transaortic velocity is within normal range. There is no aortic regurgitation. Doppler Measurements (Fetus A) Atrioventricular Valves Name Value Normal Z-Score Percentile Atrioventricular Valves Doppler TV E Peak Velocity 0.4 m/s TV A Peak Velocity 0.6 m/s MV E Peak Velocity 0.4 m/s MV A Peak Velocity 0.6 m/s (Fetus A) Semilunar Valves Name Value Normal Z-Score Percentile Semilunar Valves Doppler AV Peak Velocity () 0.8 m/s (Fetus A) Heart Rate Name Value Normal Z-Score Percentile Heart Rate HR 152 bpm Report Signatures Finalized by Joselyn Flanagan MD on 03/14/2025 04:39 PM Procedure Note Joselyn Flanagan MD - 03/14/2025 Name: Irina Garcia Patient Exam Info Gender: Female Patient Status: O/P : 2005 Admit Date: 03/14/2025 Exam Date/Time: 03/14/2025 8:36 AM Site: [facility] Current Location: CARE EStaffOrdering Provider: Srinivasan Blankenship Interpreting Physician: Joselyn Flanagan MD Showroom Sales Consultant: Tara Haas [facility] Study Info Procedure: ECHO COMPLETE CG Indications: - Screening for cardiovascular condition Maternal Gestational Status GA by EDC: 31 wks , 4 days EDC: 05/12/2025 Type: Durán Age: 19 yrs Lie: Vertex Summary * The echocardiogram was within normal limits. * Small atrial and ventricular septal defects and persistent ductus arteriosus cannot be excluded as findings. Anatomic Relationships Left sided cardiac apex (levocardia). There is normal visceral-cardiac situs, and normal segmental cardiac anatomical relationship. Systemic Veins There is normal systemic venous return. Pulmonary Veins The visualized pulmonary veins drain normally to the left atrium. Right Atrium The right atrial size is normal. Left Atrium The left atrial size is normal. Atrial Septum Patent foramen ovale with open foramen flap. Color flow is right toleft. Right Ventricle The right ventricular cavity size is normal. The right ventricularwall thickness is normal. The right ventricular systolic function is normal. RV Outflow Tract The right ventricular outflow tract is normal. Left Ventricle The left ventricular cavity size is normal. The left ventricular wall thickness is normal. The left ventricular systolic function is normal. Ventricular Septum There is no ventricular septal defect with no shunting. LV Outflow Tract The left ventricular outflow tract is normal. Tricuspid Valve The tricuspid valve is structurally normal. The tricuspid inflow patternis normal. Tricuspid velocity is within the normal range. There is notricuspid regurgitation. Mitral Valve The mitral valve is structurally normal. The mitral inflow pattern is normal. Mitral velocity is within the normal range. There is no mitral regurgitation. Aorta aortic arch visualized and is without obstruction by 2D, colorflow and Doppler. Pulmonary Arteries The main pulmonary artery is normal, with confluent branch pulmonary arteries. Ductus Arteriosus The antegrade flow velocity and pattern in the ductal arch is normal.A normal ductus arteriosus is appreciated. Doppler Flow in the ductus venosus is normal. The umbilical vein flow patternis normal. The umbilical artery flow pattern is normal. Hydrops Assessment No pericardial effusion. No ascites present. No pleural effusion(s). Rhythm The rhythm is normal. There is 1:1 AV conduction. Pulmonary Valve The pulmonic valve is normal-sized. The transpulmonic velocity iswithin normal range. There is no pulmonic regurgitation. Aortic Valve The aortic valve is normal-sized. The transaortic velocity is withinnormal range. There is no aortic regurgitation. Doppler Measurements (Fetus A) Atrioventricular Valves Name Value Normal Z-ScorePercentile Atrioventricular Valves Doppler TV E Peak Velocity 0.4 m/s TV A Peak Velocity 0.6 m/s MV E Peak Velocity 0.4 m/s MV A Peak Velocity 0.6 m/s (Fetus A) Semilunar Valves Name Value Normal Z-ScorePercentile Semilunar Valves Doppler AV Peak Velocity () 0.8 m/s (Fetus A) Heart Rate Name Value Normal Z-ScorePercentile Heart Rate HR 152 bpm Report Signatures Finalized by Joselyn Flanagan MD on 03/14/2025 04:39 PM us Srinivasan Blankenship MD [facility] Final Result * BIOPHYSICAL PROFILE W NST (03/14/2025 9:32 AM CDT) Linked Results Indication ======== Incomplete anatomy, 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 Weight 140 kg, 308 lb. Initial weight 129 kg, 284 lb. BMI 48.24 kg/m . Initial BMI 44.48 kg/m . Weight gain 11 kg, 24 lb Method ====== Transabdominal ultrasound. View: Suboptimal view: limited by maternal body habitus ========= Durán . Number of fetuses: 1 Dating ====== Date Details Gest. age ROCKY LMP 08/05/2024 31 w + 4 d 05/12/2025 Stated ROCKY 31 w + 4 d 05/12/2025 Previous U/S 09/14/2024 GA, GA 5 w + 5 d 31 w + 4 d 05/12/2025 Assigned dating based on the LMP, selected on 12/28/2024 31 w + 4 d 05/12/2025 General Evaluation Cardiac activity present. FHR 151 bpm. Presentation: cephalic Placenta: Placental site: anterior Amniotic Fluid Assessment == Amount of AF: normal MVP 4.7 cm. EMERSON 14.9 cm. Q1 4.7 cm, Q2 3.7 cm, Q3 2.3 cm, Q4 4.2 cm Biophysical Profile 2: breathing movements 2: Gross body movements 2: tone 2: Amniotic fluid volume NST: reactive 07/12 Biophysical profile score Non Stress Test NST interpretation: reactive. Baseline FHR 130 bpm. Baseline variability: moderate. Accelerations: present. Decelerations: absent Growth Overview Exam date GA BPD (mm) [...] 91% Anatomy The following structures appear normal: Face Lips. Nasal bone. Orbits. Abdomen Stomach. Kidneys. Bladder. The following structures could not be adequately visualized: Face Profile. Heart / Thorax 4-chamber view. Aortic arch view. Ductal arch view. Interventricular septum. Great vessels. Right lung. Left lung. Extremities / Skeleton Left hand. sex: female. Impression ========= Single, live, intrauterine at 31w4d Amniotic fluid volume: normal Biophysical profile: reassuring Follow-up ======== Continue at least weekly testing (or more frequent as clinically indicated) Coding ====== Procedures 17571: US Uterus Limited 09111: Biophysical Profile W NST [facility] Powered Outcomes PACS Anatomical Region Laterality Modality Other 03/14/2025 9:32 AM CDT Niki Natarajan MD [facility] ORDERABLES Edited Result - Final * SONOGRAM - COMPLETE (03/06/2025 3:56 PM [...] 4 lb 4 oz EFW by [place] ([id number]) accelerated Growth Overview Exam date GA BPD [...] Thorax RVOT view. LVOT view. 3-vessel view. 5-mpbxhq-qibvggy view. Situs. Bicaval view. Diaphragm. Abdomen Cord [...] as scheduled on 03/14/25 Coding ====== Procedures 14609: US Preg Uterus Follow Up [employer] PACS Anatomical Region Laterality Modality Other 03/06/2025 3:56 PM CDT Niki Natarajan MD [facility] ORDERABLES Edited Result - Final from Last 3 Months Insurance [facility]
--- OUTSIDE RECORDS SUMMARY | 2025-03-19 09:44 | XMS_ITS | Data Portability ---
Author Organization [employer], Main Office Address [address] [place] [address] Assessment Encounter Date Assessment Date Assessment LastModified [...] 8.0 x10'3 /uL 4.2-10 .8 Not Available [facility] (Lab) [address] [place], [address], 02/09/2023 06:58:43 02/10/2002/09/2023 CBC/C OMPLE TE BLD COUNT W/DIF F red blood cells 5.19 x10'6 /uL 3.80-5 .20 Not Available [facility] ([facility]) [address] [place], [address], 02/09/2023 06:58:43 02/10/2002/09/2023 CBC/C OMPLE TE BLD COUNT W/DIF F hemoglobin 15.2 g/dL 12.0-1 5.6 Not Available [facility] (Lab) [address] [place], [address], 02/09/2023 06:58:43 02/10/20 23 02/09/2023 CBC/C OMPLE TE BLD COUNT W/DIF F hematocrit 45.4 % 35.7-4 5.7 Not Available [facility] (Lab) [address] [place], [address], 02/09/2023 06:58:43 02/10/2002/09/2023 CBC/C OMPLE TE BLD COUNT W/DIF F mean red cell volume 87.5 fL 82.0-9 9.0 Not Available [facility] (Lab) [address] [place], [address], 02/09/2023 06:58:43 02/10/2002/09/2023 CBC/C OMPLE TE BLD COUNT W/DIF F mean red cell hemoglobin 29.3 pg 27.0-3 3.0 Not Available [facility] (Lab) [address] [place], [address], 02/09/2023 06:58:43 02/10/2002/09/2023 CBC/C OMPLE TE BLD COUNT W/DIF F mean RBC HGB concentratio n 33.5 g/dL 31.0-3 6.0 Not Available [facility] (Lab) [address] [place], [address], 02/09/2023 06:58:43 02/10/2002/09/2023 CBC/C OMPLE TE BLD COUNT W/DIF F red cell distribution width 12.4 % 11.8-1 5.5 Not Available [facility] (Lab) [address] [place], [address], 02/09/2023 06:58:43 02/10/20 23 02/09/2023 CBC/C OMPLE TE BLD COUNT W/DIF F platelets 303 x10'3 /uL 150-40 0 Not Available [facility] (Lab) [address] [place], [address], 02/09/2023 06:58:43 02/10/2002/09/2023 CBC/C OMPLE TE BLD COUNT W/DIF F mean platelet volume 9.7 fL 9.0-12 .4 Not Available [facility] (Lab) [address] [place], [address], 02/09/2023 06:58:43 02/10/2002/09/2023 CBC/C OMPLE TE BLD COUNT W/DIF F neutrophils 44.1 % 39.0-7 2.0 Not Available [facility] (Lab) [address] [place], [address], 02/09/2023 06:58:43 02/10/2002/09/2023 CBC/C OMPLE TE BLD COUNT W/DIF F lymphocytes 45.6 % 16.0-4 7.0 Not Available [facility] (Lab) [address] [place], [address], 02/09/2023 06:58:43 02/10/2002/09/2023 CBC/C OMPLE TE BLD COUNT W/DIF F monocytes 5.0 % 5.0-12 .0 Not Available [facility] (Lab) [address] [place], [address], 02/09/2023 06:58:43 02/10/2002/09/2023 CBC/C OMPLE TE BLD COUNT W/DIF F eosinophils 3.9 % 1.0-7. 0 Not Available [facility] (Lab) [address] [place], [address], 02/09/2023 06:58:43 02/10/2002/09/2023 CBC/C OMPLE TE BLD COUNT W/DIF F basophils 1.0 % 0.0-2. 0 Not Available [facility] (Lab) [address] [place], [address], 02/09/2023 06:58:43 02/10/2002/09/2023 CBC/C OMPLE TE BLD COUNT W/DIF F immature granulocytes 0.4 % 0.00-0 .50 Not Available [facility] (Lab) [address] [place], [address], 02/09/2023 06:58:43 02/10/2002/09/2023 CBC/C OMPLE TE BLD COUNT W/DIF F neutrophils, absolute count 3.52 x10'3 /uL 1.5-8. 0 Not Available [facility] (Lab) [address] [place], [address], 02/09/2023 06:58:43 02/10/2002/09/2023 CBC/C OMPLE TE BLD COUNT W/DIF F lymphocytes, absolute count 3.64 x10'3 /uL 1.07-3 .43 high Not Available [facility] (Lab) [address] [place], [address], 02/09/2023 06:58:43 02/10/2002/09/2023 CBC/C OMPLE TE BLD COUNT W/DIF F monocytes, absolute count 0.40 x10'3 /uL 0.29-0 .99 Not Available [facility] (Lab) [address] [place], [address], 02/09/2023 06:58:43 02/10/20 23 02/09/2023 CBC/C OMPLE TE BLD COUNT W/DIF F eosinophils, absolute count 0.31 x10'3 /uL 0.02-0 .53 Not Available [facility] (Lab) [address] [place], [address], 02/09/2023 06:58:43 02/10/20 23 02/09/2023 CBC/C OMPLE TE BLD COUNT W/DIF F basophils, absolute count 0.08 x10'3 /uL 0.01-0 .08 Not Available [facility] (Lab) [address] [place], [address], 02/09/2023 06:58:43 02/10/20 23 02/09/2023 CBC/C OMPLE TE BLD COUNT W/DIF F immature granulocytes ,absolute 0.03 x10'3 /uL 0.00-0 .05 Not Available [facility] (Lab) [address] [place], [address], 02/09/2023 06:58:43 02/10/20 23 02/09/2023 CBC/C OMPLE TE BLD COUNT W/DIF F nucleated red blood cells 0.0 % -0 Not Available [facility] (Lab) [address] [place], [address], 02/09/2023 06:58:43 02/10/20 23 02/09/2023 CBC/C OMPLE TE BLD COUNT W/DIF F NRBC# 0.00 x10'3 /uL Not Available [facility] (Lab) [address] [place], [address], 02/09/2023 06:58:43 02/10/20 23 02/09/2023 URINE HCG QUAL/ POINT OF CARE ur preg NEGATI VE TESTI NG PERFO RMED BY SURGI CAROLYN SERVI THONY PERSO NNEL. Not Available [facility] (Lab) [address] [place], [address], 02/09/2023 07:03:22 02/10/20 23 02/09/2023 URINE HCG QUAL/ POINT OF CARE lot no. [id number] Not Available [facility] (Lab) [address] [place], [address], 02/09/2023 07:03:22 02/10/20 23 02/09/2023 URINE HCG QUAL/ POINT OF CARE pos QC POSITI VE Not Available [facility] (Lab) [address] [place], [address], 02/09/2023 07:03:22 02/10/2002/09/2023 URINE HCG QUAL/ POINT OF CARE neg QC NEGATI VE Not Available [facility] (Lab) [address] [place], [address], 02/09/2023 07:03:22 02/10/20 23 02/09/2023 COMPR EHENS LUISITO METAB OLIC PANEL sodium 141 mmol/ L 137-14 5 Not Available [facility] (Lab) [address] [place], [address], 02/09/2023 07:13:48 02/10/20 23 02/09/2023 COMPR EHENS LUISITO METAB OLIC PANEL potassium 4.0 mmol/ L 3.5-5. 1 Not Available [facility] (Lab) [address] [place], [address], 02/09/2023 07:13:48 02/10/20 23 02/09/2023 COMPR EHENS LUISITO METAB OLIC PANEL chloride 107 mmol/ L 98-107 Not Available [facility] (Lab) [address] [place], [address], 02/09/2023 07:13:48 02/10/20 23 02/09/2023 COMPR EHENS LUISITO METAB OLIC PANEL carbon dioxide 24 mmol/ L 22-30 Not Available [facility] (Lab) [address] [place], [address], 02/09/2023 07:13:48 02/10/2002/09/2023 COMPR EHENS LUISITO METAB OLIC PANEL anion gap 14.0 mmol/ L 14-22 Not Available [facility] (Lab) [address] [place], [address], 02/09/2023 07:13:48 02/10/20 23 02/09/2023 COMPR EHENS LUISITO METAB OLIC PANEL glucose 89 mg/dL 70-99 Not Available [facility] (Lab) [address] [place], [address], 02/09/2023 07:13:48 02/10/20 23 02/09/2023 COMPR EHENS LUISITO METAB OLIC PANEL BUN 20 mg/dL 8-19 high Not Available [facility] (Lab) [address] [place], [address], 02/09/2023 07:13:48 02/10/20 23 02/09/2023 COMPR EHENS LUISITO METAB OLIC PANEL creatinine 0.60 mg/dL 0.30-1 .00 Not Available [facility] (Lab) [address] [place], [address], 02/09/2023 07:13:48 02/10/2002/09/2023 COMPR EHENS LUISITO METAB OLIC PANEL GFR >60 Refer ence Range : [place] ge GFR Healt hy Adult : >60 [...] lator is avail able on the [facility] websi te: https ://ww w.kid aicha.o rg/pr ofess ional s/kdo qi/gf r_cal culat or Not Available [facility] (Lab) [address] [place], [address], 02/09/2023 07:13:48 02/10/20 23 02/09/2023 COMPR EHENS LUISITO METAB OLIC PANEL alkaline phosphatase 48 U/L 38-126 Not Available [facility] (Lab) [address] [place], [address], 02/09/2023 07:13:48 02/10/20 23 02/09/2023 COMPR EHENS LUISITO METAB OLIC PANEL alanine aminotransfe rase 28 U/L 0-35 Not Available [facility] (Lab) [address] [place], [address], 02/09/2023 07:13:48 02/10/20 23 02/09/2023 COMPR EHENS LUISITO METAB OLIC PANEL aspartate aminotransfe rase 24 U/L 14-37 Not Available [facility] (Lab) [address] [place], [address], 02/09/2023 07:13:48 02/10/20 23 02/09/2023 COMPR EHENS LUISITO METAB OLIC PANEL bilirubin, total 0.50 mg/dL 0.20-1 .30 Not Available [facility] (Lab) [address] [place], [address], 02/09/2023 07:13:48 02/10/20 23 02/09/2023 COMPR EHENS LUISITO METAB OLIC PANEL calcium 9.5 mg/dL 8.4-10 .2 Not Available [facility] (Lab) [address] [place], [address], 02/09/2023 07:13:48 02/10/20 23 02/09/2023 COMPR EHENS LUISITO METAB OLIC PANEL total protein 7.4 g/dL 6.1-8. 0 Not Available [facility] (Lab) [address] [place], [address], 02/09/2023 07:13:48 02/10/20 23 02/09/2023 COMPR EHENS LUISITO METAB OLIC PANEL albumin 4.9 g/dL 3.4-5. 0 Not Available [facility] (Lab) [address] [place], [address], 02/09/2023 07:13:48 02/10/20 23 02/09/2023 COMPR EHENS LUISITO METAB OLIC PANEL globulin 2.5 g/dL 2.6-4. 2 low Not Available [facility] (Lab) [address] [place], [address], 02/09/2023 07:13:48 02/10/20 23 02/09/2023 COMPR EHENS LUISITO METAB OLIC PANEL A/G ratio 2.0 ratio 1.0-2. 0 Not Available [facility] (Lab) [address] [place], [address], 02/09/2023 07:13:48 12/31/19 23 12/27/2022 US, abdom en, limit ed No observ ation record ed. BARCODE Not Available 2022 15:47:47 01/14/20 23 01/13/2023 NM, hepat obili manuela scan, w/ CCK No observ ation record ed. [email or web address] [facility] [address] [facility], [place], [address], 01/13/2023 12:56:29 Result Notes None recorded. Problems Name Problem SNOMED Code Status Onset Date Resolution Date Notes Provider Name and Address Organization Details Recorded Time Abdominal pain 18944688 Active 023 Esteban dang MD [address], [address], [employer] 3 13:36:11 Biliary dyskinesia 324574918 Active 023 Esteban dang MD [address], [address], [employer] 3 13:59:47 Problem Notes None recorded. Procedures Surgical History Date Name Laterality Status Provider Name and Address Organization Details Recorded Time 02/10/20 23 Cholecystectomy completed Aliyah Higgins MA [employer] 02/21/2023 10:43:07 Imaging Results None recorded. Procedure [...] rate Body height Body mass index (BMI) [Percentile] Per age and sex Body mass index (BMI) Body weight Body temperature Systolic blood pressure Diastolic blood pressure Provider Name and Address Organization Details Last Updated DateTime 3 75 /min 98 % 98 % 14 /min 167.64 cm 98 % 36.5 kg/m2 888249. 88 g 98 [degF] 120 mm[Hg] 74 mm[Hg] Patty Mendez [facility] 3 11:45:01 Date Recorded Body height Body mass index (BMI) Body mass index (BMI) [Percentile] Per age and sex Body weight Body temperature Heart rate Respiratory rate Oxygen saturation Oxygen saturation in Arterial blood by Pulse oximetry Systolic blood pressure Diastolic blood pressure Provider Name and Address Organization Details Last Updated DateTime 3 167.64 cm 36.5 kg/m2 98 % 432884. 88 g 98 [degF] 75 /min 14 /min 98 % 98 % 120 mm[Hg] 74 mm[Hg] Patty Mendez [facility] [employer] 3 11:22:24 Social History None recorded. Functional Status None recorded. Mental Status None recorded. Family History Relationship Description Onset Age of this Age Resolved Age Notes LastModified by Organization Details LastModified Time Mother [facility]olecystect [email or web address] Not available 01/04/2023 11:46:10 Medical History Condition Response HEADACHES/MIGRAINES Y ASTHMA Y Gynecological HistoryNo gynecological history recorded. Obstetrics History GPAL:G 0 P 0 0 0 0 Past Encounters Encounter ID Performer Location Encounter Start Date Encounter Closed Date Diagnosis/Indication Diagnosis SNOMED-CT Code Diagnosis ICD10 Code Diagnosis Note [id number] Esteban levin MD [facility] General Surgery [address] [facility] [address] [place] [address] 01/04/2023 11:25:29 01/04/2023 12:32:38 Abdominal pain 92640075 R10.9 [id number] Esteban levin MD [facility] General Surgery [address] [facility] [address] [place] [address] 01/20/2023 11:19:18 01/20/2023 12:04:56 Biliary dyskinesia 213908619 K82.8 Health Concerns Section Related Observation LastModified by Organization Detai ls LastModified Time None Recorded Concern Status LastModified by Organization Details LastModified Time None Recorded Advance Directives Directive None Recorded Payers Insurance Date Sequence Insurance Name Policy Number Policy Perez Covered Member ID Perez Member ID Guarantor Name 02/20/2023 1 [facility] (MEDICAID REPLACEMENT - HMO) [id number] Irina Garcia [id number] Irina Garcia Notes Date Note Type [...] two weeks. US unremarkable. Esteban Sandoval MD [address], [place], [address], [employer] 01/04/2023 13:36:20 01/20/2023 text/html patient continue s to have right upper quadrant pain associated with meals. Has been there for approximately a month. Has had a weight loss of approximately 80 lb in the last Few months secondary to improve diet. Denies nausea vomiting fevers chills or any other constitutional symptoms Esteban Sandoval MD [address], [place], [address], [employer] 01/20/2023 14:00:13 OBGyn Episode No OBEpisode recorded.
--- OUTSIDE RECORDS SUMMARY | 2025-03-19 09:44 | XMS_ITS | Data Portability ---
Author Organization [facility], [address] [facility] ([place]) Address [address] [address] Care Team Providers Care Poultry Breeder Name Role Phone SUZANNE MEDINA Primary Care Provider [phone] Assessment Encounter Date Assessment Date Assessment LastModified by Organization Details LastModified Time 09/05/2024 09/05/2024 1. Discussed the patient s . She is currently just using her albuterol as needed. No other medications. We discussed foods to avoid, medications to avoid, etc. 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 We will go ahead and [...] Lab test, urine 2023 024 [email or web address] [id number] [place] [facility] [place] [facility], [facility] [address], [address], 4 16:36:43 Referral obstetricia n and gynecologis t [facility] [address], [place], [address], 4 17:16:09 Procedures None recorded. Surgeries None recorded. Imaging None recorded. Medication Orders None recorded. Patient TargetsNo targets recorded. Patient InstructionsNo instructions recorded. 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 Referring Physician: Suzanne Medina, Family Medicine, Encounter Date: 09/05/2024 Results Created Date Observation Date Name Description Value Unit Range Abnormal Flag Note LastModifiedBy Organization Detail LastModifiedTime 09/05/20 24 09/05/2024 pregn jacklyn test, urine urine POSITI VE negati ve abnormal (SENS ITIVI TY >99%) (SPEC IFICI TY >99%) Not Available [facility] [address] [place] [address], [address], 09/05/2024 16:23:39 09/11/20 24 09/11/2024 beta- HCG, quant itati ve, serum or plasm a beta-HCG quantitative 16657 mIU/m L 0-5 mIU/m L Negat julianne for pregn jacklyn 6-24 mIU/m L Indet ermin ate >25 mIU/m L Posit julianne for pregn jacklyn Not Available [facility] [address] [place] [address], [address], 09/11/2024 15:55:51 09/13/20 24 09/13/2024 beta- HCG, quant itati ve, serum or plasm a beta-HCG quantitative 00718 mIU/m L 0-5 mIU/m L Negat julianne for pregn jacklyn 6-24 mIU/m L Indet ermin ate >25 mIU/m L Posit julianne for pregn jacklyn Not Available [facility] [address] [place] [address], [address], 09/13/2024 15:37:10 09/17/20 24 09/17/2024 beta- HCG, quant itati ve, serum or plasm a beta-HCG quantitative 62170 mIU/m L 0-5 mIU/m L Negat julianne for pregn jacklyn 6-24 mIU/m L Indet ermin ate >25 mIU/m L Posit julianne for pregn jacklyn Not Available [facility] [address] [place] [address], [place], [address], 09/17/2024 15:41:53 Result Notes None recorded. Problems Name Problem SNOMED Code Status Onset Date Resolution Date Notes Provider Name and Address Organization Details Recorded Time Heart murmur 22001628 Active 024 Suzanne Medina MD [address] [place] [address], [address] , [facility] 4 16:31:56 Obesity 820114287 Active 024 [facility] 4 17:06:50 Weight gain 2174614 Active 024 [facility] 4 17:07:07 Problem Notes None recorded. [...] DateTime 170.18 cm 41.8 kg/m2 99 % 801749. 16 g 97.9 [degF] 20 /min 99 % 99 % 102 /min 128 mm[Hg] 80 mm[Hg] Charlee Barbour [facility] 16:15:39 Social History None recorded. Functional Status None recorded. Mental Status None recorded. Family History Nothing Reported. Medical History No medical history recorded. Gynecological HistoryNo gynecological history recorded. Obstetrics History GPAL:G 0 P 0 0 0 0 Immunizations Vaccine Type Date Status Note Provider Nam e and Address Organization Details Recorded Time Hib, unspecified formulation 5 completed Charlee Barbour [facility] 09/05/2024 16:15:45 Hib, unspecified formulation 5 completed Charlee Barbour [facility] 09/05/2024 16:15:45 Hib, unspecified formulation 5 completed Charlee Barbour [facility] 09/05/2024 16:15:45 MMR 9 completed Charlee Barbour [facility] 09/05/2024 16:15:45 MMR 5 completed Charlee Barbour [facility] 09/05/2024 16:15:45 pneumococcal conjugate PCV 7 5 completed Charlee Barbour [facility] 09/05/2024 16:15:45 pneumococcal conjugate PCV 7 5 completed Charlee Barbour [facility] 09/05/2024 16:15:45 pneumococcal conjugate PCV 7 5 completed Charlee Barbour [facility] 09/05/2024 16:15:45 pneumococcal conjugate PCV 7 5 completed Charlee Barbour [facility] 09/05/2024 16:15:45 DTaP-IPV 9 completed Charlee Barbour [facility] 09/05/2024 16:15:45 influenza, unspecified formulation 5 completed Charlee Barbour null, [facility] 09/05/2024 16:15:45 influenza, unspecified formulation 5 completed Charlee Barbour null, [facility] 09/05/2024 16:15:45 Tdap 6 completed [facility] 09/05/2024 16:15:45 Tdap 3 completed [facility] 09/05/2024 16:15:45 varicella 6 completed [facility] 09/05/2024 16:15:45 varicella 9 completed [facility] 09/05/2024 16:15:45 Influenza, split virus, trivalent, preservative 6 completed [facility] 09/05/2024 16:15:45 Meningococcal MCV4O 2 completed [facility] 09/05/2024 16:15:45 meningococcal MCV4P 6 completed [facility] 09/05/2024 16:15:45 DTaP 6 completed [facility] 09/05/2024 16:15:45 DTaP-Hep B-IPV 5 completed [facility] 09/05/2024 16:15:45 DTaP-Hep B-IPV 5 completed [facility] 09/05/2024 16:15:45 DTaP-Hep B-IPV 5 completed [facility] 09/05/2024 16:15:45 Past Encounters Encounter ID Performer Location Encounter Start Date Encounter Closed Date Diagnosis/Indication Diagnosis SNOMED-CT Code Diagnosis ICD10 Code Diagnosis Note [id number] Suzanne Medina MD [facility] ([place]) [address] [place] [address] 09/05/2024 16:07:20 09/05/2024 16:52:01 Amenorrhea 50966971 N91.2 test positive 980705446 Z32.01 Health Concerns Section Related Observation LastModified by Organization Detai ls LastModified Time None Recorded Concern Status LastModified by Organization Details LastModified Time None Recorded Advance Directives Directive None Recorded Payers Insurance Date Sequence Insurance Name Policy Number Policy Perez Covered Member ID Perez Member ID Guarantor Name 09/05/2024 1 [facility] (MEDICAID REPLACEMENT - HMO) [id number] Irina Garcia [id number] Irina Garcia 09/05/2024 1 *SELF PAY* kendrick Garcia Notes Date Note Type Note Provider Name and Address Organization Details Recorded Time 09/05/2024 text/html The patient is here today because she had a positive home test on 09/02/24. She thinks she started her last period around 07/31/24. She is feeling well and denies any concerns. Suzanne Medina MD [facility] [place] [address], [address], [facility] 09/10/2024 15:04:09 OBGyn Episode No OBEpisode recorded.
--- OUTSIDE RECORDS SUMMARY | 2025-03-19 09:44 | XMS_ITS | Clinical Summary ---
Author Organization [facility] Address [address] [place] [address] Phone Care Team Providers Care Tissue Rewinder Name Role Phone Lashon Rees MD Primary Care Provider [phone] Allergies Active Allergy Reactions Criticality Noted Date [...] Active fluticasone 50 MCG/ACT NA SUSP 1 Ovid by Nasal route 2 times daily. Use [...] on file Legal Sex Female 3:52 AM AUDIT MGR Gender Identity Not on file Sexual Orientation [...] ID:Not on file Type:Not on file Address: [place] [phone] Care Teams Tissue Rewinder Relationship Specialty Start Date End Date Lashon Rees MD [address] [address] PCP - General 10/11/09
[2025-03-19 09:48] LABS: Glucose Fasting Gestational 91 mg/dL (>/=95)
[2025-03-19 12:09] LABS: Hematocrit 32.7 % (37.0-47.0); Hemoglobin 10.7 g/dL (12.0-15.0); Mean Corpuscular HGB Conc 32.7 g/dl (32-36); Mean Corpuscular Hemoglobin 27.5 pg (26-34); Mean Corpuscular Volume 84.1 fl (80-100); Mean Platelet Volume 10.1 fl (7.4-10.4); Platelet Count Result 225 k/mm3 (150-375); Red Blood Count 3.89 M/mm3 (4.2-5.4); Red Cell Distribution Width 14.1 % (11.5-14.5); White Blood Count 9.4 K/mm3 (4.5-10.0)
[2025-03-19 12:26] LABS: Alanine Aminotransferase 12 U/L (6-35); Albumin Level 3.6 g/dL (3.5-5.1); Alkaline Phosphatase 68 U/L (38-126); Anion Gap 7 mmol/L (4-12); Aspartate Amino Transferase 18 U/L (14-36); Bilirubin,Total 0.4 mg/dL (0.2-1.3); Blood Urea Nitrogen 5 mg/dL (7-17); Calcium 9.1 mg/dL (8.4-10.2); Carbon Dioxide 21 mmol/L (22-30); Chloride 109 mmol/L (98-107); Estimated Glomerular Filt Rate > 60; Glucose 118 mg/dL (65-110); Potassium 3.2 mmol/L (3.4-5.0); Sodium 137 mmol/L (137-145); Total Protein 6.5 g/dL (6.3-8.2); Uric Acid 3.4 mg/dL (2.5-7.5)
[2025-03-19 12:27] LABS: Glucose 1 Hour Gest 129 mg/dL (>/=180)
[2025-03-19 12:27] LABS: Glucose 2 Hour Gest 111 mg/dL (>/= 155)
[2025-03-19 13:45] LABS: Glucose 3 Hour Gest 94 mg/dL (>/=140)
[2025-03-19 17:09] VITALS: BP 112/54; PULSE 102
== END 2025-03-19 09:09 | disposition home or self-care (01) ==
PROVIDERS: PCP Family Medicine; Referring Provider Obstetrics & Gynecology; Visit Provider Student in an Organized Health Care Education/Training Program
DX: O14.90 Unspecified pre-eclampsia, unspecified trimester (principal); Z3A.00 Weeks of gestation of pregnancy not specified
CPT/HCPCS: 36415; 59025; 80053; 82951; 82952; 84550; 85027

== ENCOUNTER 2025-03-24 19:10 | Outpatient (CLI) | payer OTHER, SELFPAY ==
[2025-03-24 19:34] VITALS: BP 145/84; PULSE 92
[2025-03-24 19:36] VITALS: TEMP 36.9
[2025-03-24 19:46] VITALS: BP 138/69; PULSE 88
[2025-03-24 19:49] LABS: Basophils Percent Auto 0.4 % (0.2-1.2); Eosinophils Absolute Auto 0.3 K/mm3 (0-0.3); Eosinophils Percent Auto 2.5 % (0-4.4); Hematocrit 33.2 % (37.0-47.0); Hemoglobin 10.7 g/dL (12.0-15.0); Immature Granulocyte Absolute 0.09 K/mm3 (0.00-0.031); Immature Granulocyte Percent A 0.9 % (0-0.5); Lymphocytes Absolute Auto 2.18 K/mm3 (0.9-3.2); Lymphocytes Percent Auto 21.9 % (18.3-44.2); Mean Corpuscular HGB Conc 32.2 g/dl (32-36); Mean Corpuscular Hemoglobin 26.8 pg (26-34); Mean Corpuscular Volume 83.2 fl (80-100); Mean Platelet Volume 10.3 fl (7.4-10.4); Monocytes Absolute Auto 0.6 K/mm3 (0.1-0.6); Neutrophils Absolute Auto 6.8 K/mm3 (1.3-6.7); Neutrophils Percent Auto 68.3 % (45.5-73.1); Platelet Count Result 239 k/mm3 (150-375); Red Blood Count 3.99 M/mm3 (4.2-5.4); Red Cell Distribution Width 13.9 % (11.5-14.5)
[2025-03-24 19:53] LABS: Add Urine Microscopic? YES; Appearance Urine Clear (Clear); Bacteria Urine 2+ /hpf; Bilirubin Urine Negative (Negative); Blood Urine Negative (Negative); Color Urine Yellow (Yellow); Glucose Urine UA Negative (Negative); Ketones Urine Negative (Negative); Leukocyte Esterase Ur 2+ LEU/UL (Negative); Nitrate Urine Negative (Negative); Non Pathogenic Casts 0-2; Protein Urine Negative (Negative); RBC Urine 0-2 /hpf (0-2); Specific Grav Ur 1.006 (1.001-1.035); Squamous Epithelial Cell Urine Occasional /hpf (Few); Urobilinogen Urine 0.2 mg/dL (<2.0); pH Urine 7.5 (5.0-9.0)
[2025-03-24 19:59] LABS: Alanine Aminotransferase 12 U/L (6-35); Albumin Level 3.7 g/dL (3.5-5.1); Alkaline Phosphatase 73 U/L (38-126); Anion Gap 8 mmol/L (4-12); Aspartate Amino Transferase 18 U/L (14-36); Bilirubin,Total 0.4 mg/dL (0.2-1.3); Blood Urea Nitrogen 4 mg/dL (7-17); Calcium 9.2 mg/dL (8.4-10.2); Carbon Dioxide 20 mmol/L (22-30); Chloride 109 mmol/L (98-107); Estimated Glomerular Filt Rate > 60; Glucose 89 mg/dL (65-110); Potassium 3.6 mmol/L (3.4-5.0); Sodium 137 mmol/L (137-145); Total Protein 6.6 g/dL (6.3-8.2); Uric Acid 3.1 mg/dL (2.5-7.5)
[2025-03-24 20:01] VITALS: BP 130/71; PULSE 83
[2025-03-24 20:01] LABS: Total Protein Urine Random 15 mg/dL; Ur Ttl Prot Creatinine Ratio 0.43 mg/mg (0-0.20)
[2025-03-24 20:16] VITALS: BP 133/70; PULSE 93
[2025-03-24 20:31] VITALS: BP 137/69; PULSE 87
[2025-03-24] MEDS: ACETAMINOPHEN/BUTALBITAL/CAFFEINE 325-50-40 MG TABLET (FIORICET) 1 TAB PO (20:51)
[2025-03-24 20:52] VITALS: BMI 48.6
== END 2025-03-24 21:55 | disposition home or self-care (01) ==
LOC: ANHOBOP 19:14 → ANHLDR 19:16
PROVIDERS: Student in an Organized Health Care Education/Training Program; PCP Family Medicine; Visit Provider Obstetrics & Gynecology
DX: O13.9 Gestational [pregnancy-induced] hypertension without significant proteinuria, unspecified trimester (principal); Z3A.00 Weeks of gestation of pregnancy not specified
CPT/HCPCS: 36415; 80053; 81001; 82570; 84156; 84550; 85025; 87086; A9270

== ENCOUNTER 2025-04-17 16:23 | Outpatient (RCR) | payer OTHER, SELFPAY ==
[2025-03-29 21:00] VITALS: BP 145/84; PULSE 92
[2025-04-03 15:29] LABS: Hematocrit 31.6 % (37.0-47.0); Hemoglobin 10.1 g/dL (12.0-15.0); Immature Granulocyte Percent A 0.7 % (0-0.5); Lymphocytes Absolute Auto 2.12 K/mm3 (0.9-3.2); Mean Corpuscular HGB Conc 32.0 g/dl (32-36); Mean Corpuscular Hemoglobin 26.7 pg (26-34); Mean Corpuscular Volume 83.6 fl (80-100); Nucleated Red Blood Cells Absolute Auto 0.000 K/mm3 (0.0-0.012); Nucleated Red Blood Cells Perc 0.0 % (0.0-0.2); Platelet Count Result 247 k/mm3 (150-375); Red Blood Count 3.78 M/mm3 (4.2-5.4); White Blood Count 10.7 K/mm3 (4.5-10.0)
[2025-04-03 15:44] LABS: Alanine Aminotransferase 12 U/L (6-35); Albumin Level 3.5 g/dL (3.5-5.1); Alkaline Phosphatase 72 U/L (38-126); Anion Gap 8 mmol/L (4-12); Aspartate Amino Transferase 18 U/L (14-36); Bilirubin,Total 0.5 mg/dL (0.2-1.3); Blood Urea Nitrogen 6 mg/dL (7-17); Calcium 9.0 mg/dL (8.4-10.2); Carbon Dioxide 19 mmol/L (22-30); Chloride 110 mmol/L (98-107); Estimated Glomerular Filt Rate > 60; Glucose 117 mg/dL (65-110); Potassium 3.3 mmol/L (3.4-5.0); Sodium 137 mmol/L (137-145); Total Protein 6.4 g/dL (6.3-8.2); Uric Acid 3.3 mg/dL (2.5-7.5)
[2025-04-03 15:51] VITALS: BP 132/71; PULSE 71
[2025-04-10 13:30] VITALS: BP 124/75; PULSE 91
[2025-04-10 13:45] LABS: Hematocrit 33.1 % (37.0-47.0); Hemoglobin 10.5 g/dL (12.0-15.0); Immature Granulocyte Percent A 0.7 % (0-0.5); Lymphocytes Absolute Auto 1.72 K/mm3 (0.9-3.2); Mean Corpuscular HGB Conc 31.7 g/dl (32-36); Mean Corpuscular Hemoglobin 26.5 pg (26-34); Mean Corpuscular Volume 83.6 fl (80-100); Nucleated Red Blood Cells Absolute Auto 0.000 K/mm3 (0.0-0.012); Nucleated Red Blood Cells Perc 0.0 % (0.0-0.2); Platelet Count Result 238 k/mm3 (150-375); Red Blood Count 3.96 M/mm3 (4.2-5.4); White Blood Count 9.6 K/mm3 (4.5-10.0)
[2025-04-10 14:01] LABS: Alanine Aminotransferase 13 U/L (6-35); Albumin Level 3.5 g/dL (3.5-5.1); Alkaline Phosphatase 74 U/L (38-126); Anion Gap 8 mmol/L (4-12); Aspartate Amino Transferase 20 U/L (14-36); Bilirubin,Total 0.5 mg/dL (0.2-1.3); Blood Urea Nitrogen 5 mg/dL (7-17); Calcium 9.5 mg/dL (8.4-10.2); Carbon Dioxide 20 mmol/L (22-30); Chloride 109 mmol/L (98-107); Estimated Glomerular Filt Rate > 60; Glucose 91 mg/dL (65-110); Potassium 3.5 mmol/L (3.4-5.0); Sodium 137 mmol/L (137-145); Total Protein 6.6 g/dL (6.3-8.2); Uric Acid 3.1 mg/dL (2.5-7.5)
[2025-04-17 17:01] LABS: Alanine Aminotransferase 14 U/L (6-35); Albumin Level 3.7 g/dL (3.5-5.1); Alkaline Phosphatase 81 U/L (38-126); Anion Gap 9 mmol/L (4-12); Aspartate Amino Transferase 20 U/L (14-36); Bilirubin,Total 0.5 mg/dL (0.2-1.3); Blood Urea Nitrogen 5 mg/dL (7-17); Calcium 9.7 mg/dL (8.4-10.2); Carbon Dioxide 18 mmol/L (22-30); Chloride 110 mmol/L (98-107); Estimated Glomerular Filt Rate > 60; Glucose 100 mg/dL (65-110); Potassium 3.6 mmol/L (3.4-5.0); Sodium 137 mmol/L (137-145); Total Protein 6.7 g/dL (6.3-8.2); Uric Acid 3.2 mg/dL (2.5-7.5)
[2025-04-17 17:14] VITALS: BP 124/61; PULSE 85
[2025-04-17 17:21] LABS: Hematocrit 32.8 % (37.0-47.0); Hemoglobin 10.5 g/dL (12.0-15.0); Immature Granulocyte Percent A 0.8 % (0-0.5); Lymphocytes Absolute Auto 1.87 K/mm3 (0.9-3.2); Mean Corpuscular HGB Conc 32.0 g/dl (32-36); Mean Corpuscular Hemoglobin 26.3 pg (26-34); Mean Corpuscular Volume 82.0 fl (80-100); Nucleated Red Blood Cells Absolute Auto 0.000 K/mm3 (0.0-0.012); Nucleated Red Blood Cells Perc 0.0 % (0.0-0.2); Platelet Count Result 234 k/mm3 (150-375); Red Blood Count 4.00 M/mm3 (4.2-5.4); White Blood Count 9.3 K/mm3 (4.5-10.0)
== END 2025-05-11 10:49 | disposition home or self-care (01) ==
LOC: ANHOBOP 16:23
PROVIDERS: PCP Family Medicine; Visit Provider Student in an Organized Health Care Education/Training Program
DX: O14.93 Unspecified pre-eclampsia, third trimester (principal); Z3A.36 36 weeks gestation of pregnancy
CPT/HCPCS: 36415; 59025; 80053; 84550; 85025

== ENCOUNTER 2025-04-21 15:57 | Inpatient (IN) | payer OTHER, SELFPAY ==
[2025-04-21] VITALS (8 sets, daily range): BP systolic 129–147; BP diastolic 63–90; PULSE 92–104; TEMP 36.9–37.1; BMI 48.2
--- OUTSIDE RECORDS SUMMARY | 2025-04-21 16:03 | XMS_ITS | Data Portability ---
Author Organization [place] [facility] Spontaneously, Main Office Address [address] [place] [address] Assessment Encounter Date Assessment Date Assessment LastModified [...] 8.0 x10'3 /uL 4.2-10 .8 Not Available [facility] (Lab) [address] [place], [address], 02/09/2023 06:58:43 02/10/20 23 02/09/2023 CBC/C OMPLE TE BLD COUNT W/DIF F red blood cells 5.19 x10'6 /uL 3.80-5 .20 Not Available [facility] (Lab) [address] [place], [address], 02/09/2023 06:58:43 02/10/20 23 02/09/2023 CBC/C OMPLE TE BLD COUNT W/DIF F hemoglobin 15.2 g/dL 12.0-1 5.6 Not Available [facility] (Lab) [address] [place], [address], 02/09/2023 06:58:43 02/10/20 23 02/09/2023 CBC/C OMPLE TE BLD COUNT W/DIF F hematocrit 45.4 % 35.7-4 5.7 Not Available [facility] (Lab) [address] [place], [address], 02/09/2023 06:58:43 02/10/2002/09/2023 CBC/C OMPLE TE BLD COUNT W/DIF F mean red cell volume 87.5 fL 82.0-9 9.0 Not Available [facility] (Lab) [address] [place], [address], 02/09/2023 06:58:43 02/10/2002/09/2023 CBC/C OMPLE TE BLD COUNT W/DIF F mean red cell hemoglobin 29.3 pg 27.0-3 3.0 Not Available [facility] (Lab) [address] [place], [address], 02/09/2023 06:58:43 02/10/20 23 02/09/2023 CBC/C OMPLE TE BLD COUNT W/DIF F mean RBC HGB concentratio n 33.5 g/dL 31.0-3 6.0 Not Available [facility] (Lab) [address] [place], [address], 02/09/2023 06:58:43 05/10/02/09/2023 CBC/C OMPLE TE BLD COUNT W/DIF F red cell distribution width 12.4 % 11.8-1 5.5 Not Available [facility] (Lab) [address] [place], [address], 02/09/2023 06:58:43 02/10/2002/09/2023 CBC/C OMPLE TE BLD COUNT W/DIF F platelets 303 x10'3 /uL 150-40 0 Not Available [facility] (Lab) [address] [place], [address], 02/09/2023 06:58:43 02/10/2002/09/2023 CBC/C OMPLE TE BLD COUNT W/DIF F mean platelet volume 9.7 fL 9.0-12 .4 Not Available [facility] (Lab) [address] [place], [address], 02/09/2023 06:58:43 02/10/2002/09/2023 CBC/C OMPLE TE BLD COUNT W/DIF F neutrophils 44.1 % 39.0-7 2.0 Not Available [facility] (Lab) [address] [place], [address], 02/09/2023 06:58:43 02/10/2002/09/2023 CBC/C OMPLE TE BLD COUNT W/DIF F lymphocytes 45.6 % 16.0-4 7.0 Not Available [facility] (Lab) [address] [place], [address], 02/09/2023 06:58:43 02/10/2002/09/2023 CBC/C OMPLE TE BLD COUNT W/DIF F monocytes 5.0 % 5.0-12 .0 Not Available [facility] (Lab) [address] [place], [address], 02/09/2023 06:58:43 02/10/2002/09/2023 CBC/C OMPLE TE BLD COUNT W/DIF F eosinophils 3.9 % 1.0-7. 0 Not Available [facility] (Lab) [address] [place], [address], 02/09/2023 06:58:43 02/10/20 23 02/09/2023 CBC/C OMPLE TE BLD COUNT W/DIF F basophils 1.0 % 0.0-2. 0 Not Available [facility] (Lab) [address] [place], [address], 02/09/2023 06:58:43 02/10/2002/09/2023 CBC/C OMPLE TE BLD COUNT W/DIF F immature granulocytes 0.4 % 0.00-0 .50 Not Available [facility] (Lab) [address] [place], [address], 02/09/2023 06:58:43 02/10/2002/09/2023 CBC/C OMPLE TE BLD COUNT W/DIF F neutrophils, absolute count 3.52 x10'3 /uL 1.5-8. 0 Not Available [facility] (Lab) [address] [place], [address], 02/09/2023 06:58:43 02/10/2002/09/2023 CBC/C OMPLE TE BLD COUNT W/DIF F lymphocytes, absolute count 3.64 x10'3 /uL 1.07-3 .43 high Not Available [facility] (Lab) [address] [place], [address], 02/09/2023 06:58:43 02/10/2002/09/2023 CBC/C OMPLE TE BLD COUNT W/DIF F monocytes, absolute count 0.40 x10'3 /uL 0.29-0 .99 Not Available [facility] (Lab) [address] [place], [address], 02/09/2023 06:58:43 02/10/20 23 02/09/2023 CBC/C OMPLE TE BLD COUNT W/DIF F eosinophils, absolute count 0.31 x10'3 /uL 0.02-0 .53 Not Available [facility] (Lab) [address] [place], [address], 02/09/2023 06:58:43 02/10/20 23 02/09/2023 CBC/C OMPLE TE BLD COUNT W/DIF F basophils, absolute count 0.08 x10'3 /uL 0.01-0 .08 Not Available [facility] (Lab) [address] [place], [address], 02/09/2023 06:58:43 02/10/20 23 02/09/2023 CBC/C OMPLE TE BLD COUNT W/DIF F immature granulocytes ,absolute 0.03 x10'3 /uL 0.00-0 .05 Not Available [facility] (Lab) [address] [place], [address], 02/09/2023 06:58:43 02/10/20 23 02/09/2023 CBC/C OMPLE TE BLD COUNT W/DIF F nucleated red blood cells 0.0 % -0 Not Available [facility] (Lab) [address] [place], [address], 02/09/2023 06:58:43 02/10/2002/09/2023 CBC/C OMPLE TE BLD COUNT W/DIF F NRBC# 0.00 x10'3 /uL Not Available [facility] (Lab) [address] [place], [address], 02/09/2023 06:58:43 02/10/2002/09/2023 URINE HCG QUAL/ POINT OF CARE ur preg NEGATI VE TESTI NG PERFO RMED BY SURGI CAROLYN SERVI THONY PERSO NNEL. Not Available [facility] (Lab) [address] [place], [address], 02/09/2023 07:03:22 02/10/2002/09/2023 URINE HCG QUAL/ POINT OF CARE lot no. [id number] Not Available [facility] (Lab) [address] [place], [address], 02/09/2023 07:03:22 02/10/20 23 02/09/2023 URINE HCG QUAL/ POINT OF CARE pos QC POSITI VE Not Available [facility] (Lab) [address] [place], [address], 02/09/2023 07:03:22 02/10/2002/09/2023 URINE HCG QUAL/ POINT OF CARE neg QC NEGATI VE Not Available [facility] (Lab) [address] [place], [address], 02/09/2023 07:03:22 02/10/20 23 02/09/2023 COMPR EHENS LUISITO METAB OLIC PANEL sodium 141 mmol/ L 137-14 5 Not Available [facility] (Lab) [address] [place], [address], 02/09/2023 07:13:48 02/10/20 23 02/09/2023 COMPR EHENS LUISITO METAB OLIC PANEL potassium 4.0 mmol/ L 3.5-5. 1 Not Available [facility] (Lab) [address] [place], [address], 02/09/2023 07:13:48 02/10/20 23 02/09/2023 COMPR EHENS LUISITO METAB OLIC PANEL chloride 107 mmol/ L 98-107 Not Available [facility] (Lab) [address] [place], [address], 02/09/2023 07:13:48 02/10/20 23 02/09/2023 COMPR EHENS LUISITO METAB OLIC PANEL carbon dioxide 24 mmol/ L 22-30 Not Available [facility] (Lab) [address] [place], [address], 02/09/2023 07:13:48 02/10/2002/09/2023 COMPR EHENS LUISITO METAB OLIC PANEL anion gap 14.0 mmol/ L 14-22 Not Available [facility] (Lab) [address] [place], [address], 02/09/2023 07:13:48 02/10/20 23 02/09/2023 COMPR EHENS LUISITO METAB OLIC PANEL glucose 89 mg/dL 70-99 Not Available [facility] (Lab) [address] [place], [address], 02/09/2023 07:13:48 02/10/20 23 02/09/2023 COMPR EHENS LUISITO METAB OLIC PANEL BUN 20 mg/dL 8-19 high Not Available [facility] (Lab) [address] [place], [address], 02/09/2023 07:13:48 02/10/2002/09/2023 COMPR EHENS LUISITO METAB OLIC PANEL creatinine 0.60 mg/dL 0.30-1 .00 Not Available [facility] (Lab) [address] [place], [address], 02/09/2023 07:13:48 02/10/2002/09/2023 COMPR EHENS LUISITO METAB OLIC PANEL GFR >60 Refer ence Range : [place] ge GFR Healt hy Adult : >60 [...] lator is avail able on the [facility] websi te: https ://ww w.kid aicha.o rg/pr ofess ional s/kdo qi/gf r_cal culat or Not Available [facility] (Lab) [address] [place], [address], 02/09/2023 07:13:48 02/10/20 23 02/09/2023 COMPR EHENS LUISITO METAB OLIC PANEL alkaline phosphatase 48 U/L 38-126 Not Available [facility] (Lab) [address] [place], [address], 02/09/2023 07:13:48 02/10/20 23 02/09/2023 COMPR EHENS LUISITO METAB OLIC PANEL alanine aminotransfe rase 28 U/L 0-35 Not Available [facility] (Lab) [address] [place], [address], 02/09/2023 07:13:48 02/10/20 23 02/09/2023 COMPR EHENS LUISITO METAB OLIC PANEL aspartate aminotransfe rase 24 U/L 14-37 Not Available [facility] (Lab) [address] [place], [address], 02/09/2023 07:13:48 02/10/20 23 02/09/2023 COMPR EHENS LUISITO METAB OLIC PANEL bilirubin, total 0.50 mg/dL 0.20-1 .30 Not Available [facility] (Lab) [address] [place], [address], 02/09/2023 07:13:48 02/10/2002/09/2023 COMPR EHENS LUISITO METAB OLIC PANEL calcium 9.5 mg/dL 8.4-10 .2 Not Available [facility] (Lab) [address] [place], [address], 02/09/2023 07:13:48 02/10/20 23 02/09/2023 COMPR EHENS LUISITO METAB OLIC PANEL total protein 7.4 g/dL 6.1-8. 0 Not Available [facility] (Lab) [address] [place], [address], 02/09/2023 07:13:48 02/10/20 23 02/09/2023 COMPR EHENS LUISITO METAB OLIC PANEL albumin 4.9 g/dL 3.4-5. 0 Not Available [facility] (Lab) [address] [place], [address], 02/09/2023 07:13:48 02/10/20 23 02/09/2023 COMPR EHENS LUISITO METAB OLIC PANEL globulin 2.5 g/dL 2.6-4. 2 low Not Available [facility] (Lab) [address] [place], [address], 02/09/2023 07:13:48 02/10/20 23 02/09/2023 COMPR EHENS LUISITO METAB OLIC PANEL A/G ratio 2.0 ratio 1.0-2. 0 Not Available [facility] (Lab) [address] [place], [address], 02/09/2023 07:13:48 12/31/19 23 12/27/2022 US, abdom en, limit ed No observ ation record ed. BARCODE Not Available 2022 15:47:47 01/14/20 23 01/13/2023 NM, hepat obili manuela scan, w/ CCK No observ ation record ed. [email or web address] [facility] [address] [place], [address], 01/13/2023 12:56:29 Result Notes None recorded. Problems Name Problem SNOMED Code Status Onset Date Resolution Date Notes Provider Name and Address Organization Details Recorded Time Abdominal pain 95282413 Active 023 Esteban dang MD [address] [facility] [address], [place], [address], [employer] 3 13:36:11 Biliary dyskinesia 378902095 Active 023 Esteban dang MD [address], [address], [employer] 3 13:59:47 Problem Notes None recorded. Procedures Surgical History Date Name Laterality Status Provider Name and Address Organization Details Recorded Time 02/10/20 23 Cholecystectomy completed Aliyah Higgins MA [employer] 02/21/2023 10:43:07 Imaging Results None recorded. Procedure [...] index (BMI) Body weight Body temperature Systolic And Diastolic Provider Name and Address Organization Details Last Updated DateTime 3 75 /min 98 % 98 % 14 /min 167.64 cm 98 % 36.5 kg/m2 757360. 88 g 98 [degF] 120/74 mm[Hg] Patty Mendez [place] [facility] [employer] [facility] 3 11:45:01 Date Recorded Body height Body mass index (BMI) Body mass index (BMI) [Percentile] Per age and sex Body weight Body temperature Heart rate Respiratory rate Oxygen saturation Oxygen saturation in Arterial blood by Pulse oximetry Systolic And Diastolic Provider Name and Address Organization Details Last Updated DateTime 3 167.64 cm 36.5 kg/m2 98 % 642342. 88 g 98 [degF] 75 /min 14 /min 98 % 98 % 120/74 mm[Hg] Patty Mendez [place] [facility] 3 11:22:24 Social History None recorded. Functional Status None recorded. Mental Status None recorded. Family History Relationship Description Onset Age of this Age Resolved Age Notes LastModified by Organization Details LastModified Time Mother Cholecystect tasha Diabet ic [email or web address] Not available 01/04/2023 11:46:10 Medical History Condition Response ASTHMA Y HEADACHES/MIGRAINES Y Gynecological HistoryNo gynecological history recorded. Obstetrics History GPAL:G 0 P 0 0 0 0 Past Encounters Encounter ID Performer Location Encounter Start Date Encounter Closed Date Diagnosis/Indication Diagnosis SNOMED-CT Code Diagnosis ICD10 Code Diagnosis Note [id number] Esteban levin MD [facility] General Surgery [address] [facility] [address] [place] [address] 01/04/2023 11:25:29 01/04/2023 12:32:38 Abdominal pain 91005453 R10.9 [id number] Esteban levin MD [facility] General Surgery [address] [place] [address] 01/20/2023 11:19:18 01/20/2023 12:04:56 Biliary dyskinesia 451194124 K82.8 Health Concerns Section Related Observation LastModified by Organization Detai ls LastModified Time None Recorded Concern Status LastModified by Organization Details LastModified Time None Recorded Advance Directives Directive None Recorded Payers Insurance Date Sequence Insurance Name Policy Number Policy Perez Covered Member ID Perez Member ID Guarantor Name 02/20/2023 1 [facility] (MEDICAID REPLACEMENT - HMO) [id number] Irina Garcia [id number] Irina M Jose Notes Date Note Type Note Provider Name [...] US unremarkable. Esteban Sandoval MD [address], [place], [address], [employer] 01/04/2023 13:36:20 01/20/2023 text/html patient continue s to have right upper quadrant pain associated with meals. Has been there for approximately a month. Has had a weight loss of approximately 80 lb in the last Few months secondary to improve diet. Denies nausea vomiting fevers chills or any other constitutional symptoms Esteban Sandoval MD [address], [place], [address], [employer] 01/20/2023 14:00:13 OBGyn Episode No OBEpisode recorded.
--- OUTSIDE RECORDS SUMMARY | 2025-04-21 16:03 | XMS_ITS | Data Portability ---
Author Organization [facility], [address] [facility] ([place]) Address [address] [place] [address] Care Team Providers Care Registration Coordinator Name Role Phone SUZANNE MEDINA Primary Care Provider Assessment Encounter Date Assessment Date Assessment LastModified by Organization Details LastModified Time 09/05/2024 09/05/2024 1. Discussed the patient s . She is currently just using her albuterol as needed. No other medications. We discussed foods to avoid, medications to avoid, etc. 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 We will go ahead and place a [...] Lab test, urine 2023 024 [email or web address] [id number] [facility], [address], [address], 4 16:36:43 Referral obstetricia n and gynecologis t referral 2023 024 enrique [facility], [address], [place], [address], 4 17:16:09 Procedures None recorded. Surgeries None recorded. Imaging None recorded. Medication Orders None recorded. Patient TargetsNo targets recorded. Patient InstructionsNo instructions recorded. Reason for Referral [employer] Ware[employer] Hel[employer] And Gynecologis t Referral for test positive Referring Physician: Suzanne Medina, Family Medicine, Encounter Date: 09/05/2024 Results Created Date Observation Date Name Description Value Unit Range Abnormal Flag Note LastModifiedBy Organization Detail LastModifiedTime 09/05/20 24 09/05/2024 pregn jacklyn test, urine urine POSITI VE negati ve abnormal (SENS ITIVI TY >99%) (SPEC IFICI TY >99%) Not Available [facility] [address] [place] [address], [id number], 09/05/2024 16:23:39 09/11/20 24 09/11/2024 beta- HCG, quant itati ve, serum or plasm a beta-HCG quantitative 18842 mIU/m L 0-5 mIU/m L Negat julianne for pregn jacklyn 6-24 mIU/m L Indet ermin ate >25 mIU/m L Posit julianne for pregn jacklyn Not Available [facility] [address] [place] [address], [id number], 09/11/2024 15:55:51 09/13/20 24 09/13/2024 beta- HCG, quant itati ve, serum or plasm a beta-HCG quantitative 98270 mIU/m L 0-5 mIU/m L Negat julianne for pregn jacklyn 6-24 mIU/m L Indet ermin ate >25 mIU/m L Posit julianne for pregn jacklyn Not Available [facility] [address] [place] [address], [id number], 09/13/2024 15:37:10 09/17/20 24 09/17/2024 beta- HCG, quant itati ve, serum or plasm a beta-HCG quantitative 47158 mIU/m L 0-5 mIU/m L Negat julianne for pregn jacklyn 6-24 mIU/m L Indet ermin ate >25 mIU/m L Posit julianne for pregn jacklyn Not Available [facility] [address] [place] [address], [id number], 09/17/2024 15:41:53 Result Notes None recorded. Problems Name Problem SNOMED Code Status Onset Date Resolution Date Notes Provider Name and Address Organization Details Recorded Time Obesity 509035910 Active 024 Valery Calhoun [facility] 4 17:06:50 Weight gain 6275884 Active Valery Calhoun [facility] 4 17:07:07 Heart murmur 52085843 Active 024 Suzanne Medina MD [address] [place] [address], [phone] , [facility] 4 16:31:56 Problem Notes None recorded. Medical Equipment None [...] blood by Pulse oximetry Heart rate Systolic And Diastolic Provider Name and Address Organization Details Last Updated DateTime 170.18 cm 41.8 kg/m2 99 % 304100. 16 g 97.9 [degF] 20 /min 99 % 99 % 102 /min 128/80 mm[Hg] Charleeyann Barbour [facility] 16:15:39 Social History None recorded. Functional Status None recorded. Mental Status None recorded. Family History Nothing Reported. Medical History No medical history recorded. Gynecological HistoryNo gynecological history recorded. Obstetrics History GPAL:G 0 P 0 0 0 0 Immunizations Vaccine Type Date Status Note Provider Nam e and Address Organization Details Recorded Time Hib, unspecified formulation 5 completed Charlee Barbour [facility] 09/05/2024 16:15:45 Hib, unspecified formulation 5 completed Charlee Barbour [facility] 09/05/2024 16:15:45 Hib, unspecified formulation 5 completed Charlee Barbour [facility] 09/05/2024 16:15:45 MMR 9 completed Charlee Barbour [facility] 09/05/2024 16:15:45 MMR 5 completed Charlee Barbour [facility] 09/05/2024 16:15:45 pneumococcal conjugate PCV 7 5 completed Charlee Barbour [facility] 09/05/2024 16:15:45 pneumococcal conjugate PCV 7 5 completed Charlee Barbour [facility] 09/05/2024 16:15:45 pneumococcal conjugate PCV 7 5 completed Charlee Barbour [facility] 09/05/2024 16:15:45 pneumococcal conjugate PCV 7 [address] [facility] Charlee Barbour [facility] 09/05/2024 16:15:45 DTaP-IPV 9 completed Charlee Barbour [facility] 09/05/2024 16:15:45 influenza, unspecified formulation 5 completed Charlee Barbour null, [facility] 09/05/2024 16:15:45 influenza, unspecified formulation 5 completed Charlee Barbour null, [facility] 09/05/2024 16:15:45 Tdap 6 completed [facility] 16:15:45 Tdap 3 completed [facility] 09/05/2024 16:15:45 varicella 6 completed [facility] 09/05/2024 16:15:45 varicella 9 completed [facility] 09/05/2024 16:15:45 Influenza, split virus, trivalent, preservative 6 completed [facility] 09/05/2024 16:15:45 Meningococcal MCV4O 2 completed [facility] 09/05/2024 16:15:45 meningococcal MCV4P 6 completed [facility] 09/05/2024 16:15:45 DTaP 6 completed [facility] 09/05/2024 16:15:45 DTaP-Hep B-IPV 5 completed [facility] 09/05/2024 16:15:45 DTaP-Hep B-IPV 5 completed [facility] 09/05/2024 16:15:45 DTaP-Hep B-IPV 5 completed [facility] 09/05/2024 16:15:45 Past Encounters Encounter ID Performer Location Encounter Start Date Encounter Closed Date Diagnosis/Indication Diagnosis SNOMED-CT Code Diagnosis ICD10 Code Diagnosis Note [id number] Suzanne Medina MD [facility] ([place]) [address] [place] [address] 09/05/2024 16:07:20 09/05/2024 16:52:01 Amenorrhea 65176048 N91.2 test positive 277335770 Z32.01 Health Concerns Section Related Observation LastModified by Organization Detai ls LastModified Time None Recorded Concern Status LastModified by Organization Details LastModified Time None Recorded Advance Directives Directive None Recorded Payers Insurance Date Sequence Insurance Name Policy Number Policy Perez Covered Member ID Perez Member ID Guarantor Name 09/05/2024 1 [facility] (MEDICAID REPLACEMENT - HMO) [id number] Irina Garcia [id number] Irina Garcia 09/05/2024 1 *SELF PAY* kendrick Garcia Notes Date Note Type Note Provider Name and Address Organization Details Recorded Time 09/05/2024 text/html The patient is here today because she had a positive home test on 09/02/24. She thinks she started her last period around 07/31/24. She is feeling well and denies any concerns. Suzanne Medina MD [facility] [place] [address], [phone], [facility] 09/10/2024 15:04:09 OBGyn Episode No OBEpisode recorded.
--- OUTSIDE RECORDS SUMMARY | 2025-04-21 16:03 | XMS_ITS | Clinical Summary ---
Author Organization [employer] Address [address] [place] [address] Care Team Providers Care Trim Mechanic Name Role Phone Unavailable Primary Care Provider Unavailabl e Source Comments [facility],non-owned Affiliates and Associated Physician Practices is amultiple site organization consisting of ambulatory clinics and hospital sitesin [place], [place], [place] and [place]. This disclosure is being madepursuant to the Care Everywhere program and may not contain all information available regarding this patient. Last updated 18.[facility] Allergies No known active allergies Medications * [...] Active Problems Problem Noted Date Diagnosed Date Chronic hypertension with superimposed preeclamp leeann 03/20/2025 Obesity affecting , antepartum 03/06/20 25 28 weeks gestation of 03/06/2025 Estimated Date of Delivery Comme nts Yes 05/12/2025 Based on last me nstrual period of 08/05/2024 Resolved Problems Problem Noted Date Diagnosed Date Resolved Date Chronic hypertension affecting 03/06/2025 04/10/2025 Encounters * This document contains information received from the source organization and may not represent a complete record from that organization. Date Type Department Care Team Description 04/17/2025 1:45 PM CDT - 04/17/2025 11:59 PM CDT Hospital Encounter [facility] [address] [place] [phone] Abiola Diamond MD Discharge Disposition: Home or Self Care 04/10/2025 1:43 PM CDT - 04/10/2025 11:59 PM CDT Hospital Encounter [facility] [address] [place] [address] [phone] Abiola Diamond MD Discharge Disposition: Home or Self Care 04/03/2025 1:45 PM CDT - 04/03/2025 11:59 PM CDT Hospital Encounter [facility] [address] [place] [address] [phone] Srinivasan Blankenship MD Discharge Disposition: Home or Self Care 03/29/2025 Telephone [facility] [address] [place] [address] [phone] Daniela Gonsales, RN Update (Called to check in on patient who was seen for preeclamptic evaluation at [facility] on 03/27/25. No answer/busy. Will try again later. ) 03/27/2025 1:36 PM CDT - 03/27/2025 4:19 PM CDT Hospital Encounter [facility] [address] [place] [address] Karri Perez MD Discharge Disposition: Home or Self Care 03/27/2025 Telephone [facility] [address] [place] [address] [phone] Daniela Gonsales RN Update 03/27/2025 Telephone [facility] [address] [place] [address] [phone] Daniela Gonsales, RN Update (Called Dr. Goodman's office and spoke with Erica regarding patient's calling this am with pre eclampsia sxs. ) 03/27/2025 Telephone [facility] [address] [place] [address] [phone] Daniela Gonsales, RN Returned Call (Returned call to patient's spouse.) 03/27/2025 Telephone [facility] [address] [place] [address] [phone] Daniela Gonsales, HUDSON Question (FOB called due to patient being symptomatic for preeclampsia and hoping for IOL ) 03/20/2025 12:40 PM CDT - 03/20/2025 11:59 PM CDT Hospital Encounter [facility] [address] [place] [address] [phone] Srinivasan Blankenship MD Discharge Disposition: Home or Self Care 03/14/2025 1:12 PM CDT - 03/14/2025 11:59 PM CDT Hospital Encounter [facility] [address] [place] [phone] Srinivasan Blankenship MD Discharge Disposition: Home or Self Care 03/14/2025 1:00 PM CDT - 03/14/2025 1:11 PM CDT Hospital Encounter [facility] [address] [place] [phone] Srinivasan Blankenship MD Discharge Disposition: Home or Self Care 03/14/2025 9:29 AM CDT - 03/14/2025 12:59 PM CDT Hospital Encounter [facility] [address] [phone] Joselyn Flanagan MD Buchanan, Christopher Q, MD EXCHANGE ADMINISTRATOR Discharge Disposition: Home or Self Care 03/14/2025 8:28 AM CDT - 03/14/2025 9:28 AM CDT Hospital Encounter [facility] [address] [place] [phone] Joselyn Flanagan MD 03/14/2025 8:28 AM CDT Hospital Encounter [facility] [address] [phone] Joselyn Flanagan MD Discharge Disposition: Home or Self Care 03/06/2025 2:30 PM CDT - 03/06/2025 11:59 PM CDT Hospital Encounter [facility] [address] [place] [phone] Head, Katlyn Tai MD Discharge Disposition: Home or Self Care 03/01/2025 Telephone [facility] [address] [place] [address] [phone] Daniela Gonsales RN Results (NIPT results. LM for patient to . ) 02/18/2025 Telephone [facility] [address] [place] [address] [phone] Daniela Gonsales RN Future Appointment (Called patient to review EKG/ECHO appt scheduled at [facility] with date/time/address and Neurology to call. ) 02/15/2025 Travel 02/13/2025 1:02 PM CDT - 02/13/2025 11:59 PM CDT Hospital Encounter [facility] [address] [place] [phone] Srinivasan Blankenship MD Discharge Disposition: Home or Self Care 02/13/2025 1:00 PM CDT - 02/13/2025 1:01 PM CDT Hospital Encounter [facility] [address] [place] [phone] Srinivasan Blankenship MD Discharge Disposition: Home or Self Care 01/30/2025 11:59 PM CDT Hospital Encounter [facility] [address] [place] [phone] Srinivasan Blankenship MD Discharge Disposition: Home or [...] drink = 0.6 oz pur e alcohol) Overall Financial Resource Strain (CARDIA) Answe r Date Recorded How hard is it for you to pa y for the very basics like food, housing, medical care, and heating? Not hard at all 03/27/2025 [facility] - Occupational Stress Questionnaire Answer Date Recorded Do you feel stress - tense, restless, nervous, or anxious, or unable to sleep at night because your mind is troubled all the time - these days? Not at all 03/27/2025 Hunger Vital Sign Answer Date Recorded Within the past 12 months, y ou worried that your food would run out before you got the money to buy more. Never true 03/27/20 Within the past 12 months, t he food you bought just didn't last and you didn't have money to get more. Never true 03/27/2025 PRAPARE - Transportation Answer Date Re corded In the past 12 months, has l ack of transportation kept you from medical appointments or from getting medications? No 03/04 In the past 12 months, has l ack of transportation kept you from meetings, work, or from getting things needed for daily living? No 03/27/2025 Housing Stability Vital Sign Answer Dejon e Recorded In the last 12 months, was t here a time when you were not able to pay the mortgage or rent on time? No 03/27/2025 Number of Times Moved in the Last Year Not on fi le 03/27/2025 At any time in the past [address] [facility], were you homeless or living in a long term (including now)? No 03/27/2025 Estimated Date of Delivery Comme nts Yes 05/12/2025 Based on last me nstrual period of 08/05/2024 Sex and Gender Information Value Date Recorded Sex Assigned at Not on file Legal Sex Female 2:46 PM [employer] Gender Identity Not on file Sexual Orientation Not on file Last Filed Vital Signs Vital Sign Reading Time Taken Comments Blood Pressure 136/64 04/17/2025 2:17 PM CDT Pulse 92 04/17/2025 2:17 PM CDT Temperature 37.1 C (98.8 F) 03/27/2025 1:54 PM CDT Respiratory Rate 20 03/27/2025 1:54 PM CDT Oxygen Saturation 96% 03/27/2025 1:54 PM CDT Inhaled Oxygen Concentration - - Weight 141.5 kg (312 lb) 04/10/2025 3:47 PM CDT Height 170.2 cm (5' 7) 02/13/2025 1:59 PM CDT Body Mass Index 48.87 02/13/2025 1:59 PM CDT Plan of Treatment Upcoming Encounters Date Type Department Care Team (Late st Contact Info) Description 03/03/2026 Hospital Encounter [facility] [address] [place] [address] Health Maintenance Due Date Last Done Comments [...] OB-TDAP CURRENT 02/10/20252022, 01/27/2016 OB-RHOGAM INJECTION 02/17/2025 OB-GROUP B STREP SCREEN 04/07/2025 INFLUENZA VACCINE (#1) 2025 6, 08/19/2005, 07/08/2005 ZOSTER VACCINE (1 of 2) [...] Procedure Name Priority Date/Time Associated Diagnosis Comments BIOPHYSICAL PROFILE W NST Routine 04/17/2025 3:07 PM CDT Obesity affecting , antepartum, unspecified obesity type (HCC) Chronic hypertension affecting (HCC) 36 weeks gestation of (HCC) Chronic hypertension with superimposed preeclampsia (HCC) Gestational diabetes mellitus (GDM), antepartum, gestational diabetes method of control unspecified (HCC) Encounter for ultrasound (HCC) Encounter for other screening follow-up (HCC) BIOPHYSICAL PROFILE W NST Routine 04/10/2025 2:24 PM CDT Obesity affecting , antepartum, unspecified obesity type (HCC) Chronic hypertension affecting (HCC) 32 weeks gestation of (HCC) Chronic hypertension with superimposed preeclampsia (HCC) Gestational diabetes mellitus (GDM), antepartum, gestational diabetes method of control unspecified (HCC) Encounter for ultrasound (HCC) Encounter for other screening follow-up (HCC) BIOPHYSICAL PROFILE W NST Routine 04/03/2025 2:37 PM CDT Obesity affecting , antepartum, unspecified obesity type (HCC) Chronic hypertension affecting (HCC) 34 weeks gestation of (HCC) Chronic hypertension with superimposed preeclampsia (HCC) Gestational diabetes mellitus (GDM), antepartum, gestational diabetes method of control unspecified (HCC) Encounter for ultrasound (HCC) Encounter for other screening follow-up (HCC) IMAGING/RADIOLOGY/XRA Y RESULTS ORDER 03/28/2025 4:41 PM CDT PROTEIN CREATININE RATIO URINE RANDOM PNL STAT 03/27/2025 2:28 PM CDT Chronic hypertension with superimposed preeclampsia (HCC) URINALYSIS REFLEX MICROSCOPIC REFLEX CULTURE STAT 03/27/2025 2:28 PM CDT Chronic hypertension with superimposed preeclampsia (HCC) CULTURE URINE STAT 03/27/2025 2:28 PM CDT Chronic hypertension with superimposed preeclampsia (HCC) CBC W AUTO DIFFERENTIAL STAT 03/27/2025 2:00 PM CDT Chronic hypertension with superimposed preeclampsia (HCC) COMPREHENSIVE METABOLIC PANEL STAT 03/27/2025 2:00 PM CDT Chronic hypertension with superimposed preeclampsia (HCC) BIOPHYSICAL PROFILE W NST Routine 03/20/2025 1:47 PM CDT Obesity affecting , antepartum, unspecified obesity type (HCC) Chronic hypertension affecting (HCC) 32 weeks gestation of (HCC) Chronic hypertension with superimposed preeclampsia (HCC) Gestational diabetes mellitus (GDM), antepartum, gestational diabetes method of control unspecified (HCC) Encounter for ultrasound (HCC) Encounter for other screening follow-up (HCC) ECHO COMPLETE Routine 03/14/2025 2:08 PM CDT [...] of (HCC) Gestational hypertension, second trimester (HCC) from Last 3 Months Results * BIOPHYSICAL PROFILE W NST (04/17/2025 3:07 PM CDT) Only the most recent of5 resultswithin the time period is included. Linked Results Indication ======== Pre-existing hypertension with pre-eclampsia Superimposed Pre-Eclampsia History ====== OB History 1 Lab Tests Test Date Result NIPT Low risk, Female Maternal Assessment Physical Exam Height 170 cm, 5 ft 7 in. Initial weight 129 kg, 284 lb. Initial BMI 44.48 kg/m Method ====== Transabdominal ultrasound. View: Sufficient ========= Durán . Number of fetuses: 1 Dating ====== Date Details Gest. age ROCKY LMP 08/05/2024 36 w + 3 d 05/12/2025 Stated ROCKY 36 w + 3 d 05/12/2025 Previous U/S 09/14/2024 GA, GA 5 w + 5 d 36 w + 3 d 05/12/2025 Assigned dating based on the LMP, selected on 12/28/2024 36 w + 3 d 05/12/2025 General Evaluation Cardiac activity present. FHR 157 bpm. Presentation: cephalic Placenta: Placental site: anterior Amniotic Fluid Assessment == Amount of AF: normal MVP 6.2 cm. EMERSON 16.2 cm. Q1 6.2 cm, Q2 6.1 cm, Q3 2.3 cm, Q4 1.7 cm Biophysical Profile 2: breathing movements 2: Gross body movements 2: tone 2: Amniotic fluid volume NST: non-reactive 05/12 Biophysical profile score Non Stress Test NST interpretation: non-reactive. Baseline FHR 130 bpm. Baseline variability: moderate. Accelerations: absent. Decelerations: absent Growth Overview Exam date GA [...] 96% 60.6 66% 58.4 >99% 1935 91% 04/03/2025 34w 3d 84.9 43% 318.9 52% 325.1 95% 68.8 65% 57.8 40% 2781 83% Anatomy The following structures could not be adequately visualized: Face Lips. Profile. Nose. Orbits. Heart / Thorax Aortic arch view. Ductal arch view. Interventricular septum. Right lung. Left lung. Extremities / Skeleton Left hand. The following structures were documented previously: Extremities / Skeleton Right hand. sex: female. Impression ========= Single, live, intrauterine at 36w 3d The amniotic fluid volume is normal. The biophysical profile is 8/10. (-2 NST) Follow-up ======== Induction scheduled for 04/21/2025 Coding ====== Procedures 42527: Biophysical Profile W NST [facility] PACS Anatomical Region Laterality Modality Other 04/17/2025 3:07 PM CDT Niki Natarajan MD [facility] ORDERABLES Edited Result - Final * IMAGING/RADIOLOGY/XRAY RESULTS ORDER (03/28/2025 4:41 PM CDT) Anatomical Region Laterality Modality Other Narrative 03/28/2025 4:41 PM CDT Ordered by an unspecified provider. Scanned Document IMAGING Final Result * (ABNORMAL) URINALYSIS REFLEX MICROSCOPIC REFLEX CULTURE (03/27/2025 2:28 PM CDT) Color UA Yellow Yellow, Straw 03/27/2025 3:28 PM CDT [facility] Clarity UA Turbid(A) Clear 03/27/2025 3:28 PM CDT [facility] Glucose UA Normal Normal 03/27/2025 3:28 PM CDT [facility] Bilirubin UA Negative Negative 03/27/2025 3:28 PM CDT [facility] Ketone UA Negative Negative 03/27/2025 3:28 PM CDT [facility] Specific [place] UA 1.012 1.005 - 1.030 03/27/2025 3:28 PM CDT [facility] Blood UA Trace(A) Negative 03/27/2025 3:28 PM CDT [facility] pH UA 6.5 5.0 - 8.0 03/27/2025 3:28 PM CDT [facility] Protein UA Negative Negative 03/27/2025 3:28 PM CDT [facility] Urobilinogen UA Normal Normal mg/dL 03/27/2025 3:28 PM CDT [facility] Nitrite UA Negative Negative 03/27/2025 3:28 PM CDT [facility] Leukocyte Esterase UA 25 LEORA/uL(A) Negative 03/27/2025 3:28 PM CDT [facility] RBC UA 0-2 0 - 5 # /hpf 03/27/2025 3:28 PM CDT [facility] WBC UA 0-5 0 - 5 # /hpf 03/27/2025 3:28 PM CDT [facility] Bacteria UA Trace(A) None Seen 03/27/2025 3:28 PM CDT [facility] Squamous Epithelial Cells 3-5 0 - 5 /hpf 03/27/2025 3:28 PM CDT [facility] Mucus UA 1+ /LPF 03/27/2025 3:28 PM CDT [facility] Reflex Status Culture to follow 03/27/2025 3:28 PM CDT [facility] Urine URINE SPECIMEN OBTAINED BY CLEAN CATCH PROCEDURE / Unknown Collection / Unknown 03/27/2025 2:28 PM CDT 03/27/2025 2:45 PM CDT Narrative [facility] - 03/27/2025 3:28 PM CDT Karri Perez MD LAB - URINALYSIS ORDERABLES Fi nal Result Performing Organization Address City/[facility]/ZIP Co de Phone Number [facility] [address] [place] [address] * CULTURE URINE (03/27/2025 2:28 PM CDT) Culture Urine <10,000 CFU/mL [facility] ANTONIO 03/29/2025 12:[address] [facility] Urine URINE SPECIMEN OBTAINED BY CLEAN CATCH PROCEDURE / Unknown Collection / Unknown 03/27/2025 2:28 PM CDT 03/27/2025 2:45 PM CDT Karri Perez MD LAB - MICROBIOLOGY ORDERABLES Final Result Performing Organization Address City/[facility]/ZIP Co de Phone Number [facility] [address] [place] [address], [facility] [phone] * (ABNORMAL) PROTEIN CREATININE RATIO URINE RANDOM PNL (03/27/2025 2:28 PM CDT) Protein Urine 12.3(H) <11.9 mg/dL 03/27/2025 3:36 PM CDT [facility] Creatinine Urine 91.42 mg/dL 03/27/2025 3:36 PM CDT [facility] Protein/Creatin ine Ratio Urine 0.13 03/27/2025 3:36 PM CDT [facility] Urine URINE SPECIMEN OBTAINED BY CLEAN CATCH PROCEDURE / Unknown Collection / Unknown 03/27/2025 2:28 PM CDT 03/27/2025 2:45 PM CDT Karri Perez MD LAB - URINE CHEMISTRY ORDERABL ES Final Result [facility] [address] [place] [address] * (ABNORMAL) CBC W AUTO DIFFERENTIAL (03/27/2025 2:00 PM CDT) WBC 11.2(H) 4.0 - 10.7 x10E9/L 03/27/2025 2:09 PM CDT [facility] RBC Count 3.93 3.90 - 5.20 x10E12/L 03/27/2025 2:09 PM CDT [facility] Hemoglobin 10.8(L) 11.9 - 15.8 g/dL 03/27/2025 2:09 PM CDT [facility] Hematocrit 32.6(L) 34.8 - 46.1 % 03/27/2025 2:09 PM CDT [facility] MCV 83.0 80.0 - 98.0 fL 03/27/2025 2:09 PM CDT [facility] MCH 27.5 26.7 - 33.6 pg 03/27/2025 2:09 PM CDT [facility] MCHC 33.1 31.7 - 36.3 g/dL 03/27/2025 2:09 PM CDT [facility] RDW-CV 13.8 11.3 - 14.8 % 03/27/2025 2:09 PM CDT [facility] Platelet Count 239 150 - 420 x10E9/L 03/27/2025 2:09 PM CDT [facility] MPV 10.4 7.8 - 11.4 fL 03/27/2025 2:09 PM CDT [facility] Neutrophil % 78.1(H) 41.0 - 74.0 % 03/27/2025 2:09 PM CDT [facility] Lymphocyte % 15.2(L) 17.0 - 47.0 % 03/27/2025 2:09 PM CDT [facility] Monocyte % 4.1 3.0 - 11.0 % 03/27/2025 2:09 PM CDT [facility] Eosinophil % 1.4 0.0 - 7.0 % 03/27/2025 2:09 PM CDT [facility] Basophil % 0.3 0.0 - 1.6 % 03/27/2025 2:09 PM CDT [facility] Immature Granulocytes % 0.9 0.0 - 1.0 % 03/27/2025 2:09 PM CDT [facility] Neutrophil Absolute 8.77(H) 1.60 - 7.50 x10E9/L 03/27/2025 2:09 PM CDT [facility] Lymphocyte Absolute 1.71 1.00 - 4.40 x10E9/L 03/27/2025 2:09 PM CDT [facility] Monocyte Absolute 0.46 0.15 - 1.00 x10E9/L 03/27/2025 2:09 PM CDT [facility] Eosinophil Absolute 0.16 0.00 - 0.60 x10E9/L 03/27/2025 2:09 PM CDT [facility] Basophil Absolute 0.03 0.00 - 0.13 x10E9/L 03/27/2025 2:09 PM CDT [facility] Blood BLOOD SPECIMEN / Unknown Venipuncture / Unknown 03/27/2025 2:00 PM CDT 03/27/2025 2:06 PM CDT Karri Perez MD LAB - HEMATOLOGY ORDERABLES Fi nal Result [facility] [address] [place] [address] * (ABNORMAL) COMPREHENSIVE METABOLIC PANEL (03/27/2025 2:00 PM CDT) [facility] Glucose 119(H) 70 - 99 mg/dL 03/27/2025 2:23 PM CDT [facility] Sodium 139 136 - 145 mmol/L 03/27/2025 2:23 PM CDT [facility] Potassium 3.5 3.5 - 5.1 mmol/L 03/27/2025 2:23 PM CDT [facility] Chloride 112(H) 98 - 107 mmol/L 03/27/2025 2:23 PM CDT [facility] CO2 18(L) 22 - 29 mmol/L 03/27/2025 2:23 PM CDT [facility] Calcium 8.7 8.4 - 10.4 mg/dL 03/27/2025 2:23 PM CDT [facility] Anion Gap 9 6 - 16 mmol/L 03/27/2025 2:23 PM CDT [facility] BUN 6 5.3 - 18.7 mg/dL 03/27/2025 2:23 PM CDT [facility] Creatinine 0.55(L) 0.57 - 1.11 mg/dL 03/27/2025 2:23 PM CDT [facility] Alkaline Phosphatase 77 40 - 150 U/L 03/27/2025 2:23 PM CDT [facility] ALT 6 6 - 57 U/L 03/27/2025 2:23 PM CDT [facility] AST 11 10 - 48 U/L 03/27/2025 2:23 PM CDT [facility] Protein Total 6.3(L) 6.4 - 8.3 gm/dL 03/27/2025 2:23 PM CDT [facility] Albumin 3.0(L) 3.1 - 4.5 gm/dL 03/27/2025 2:23 PM CDT [facility] Bilirubin Total 0.3 0.2 - 1.2 mg/dL 03/27/2025 2:23 PM CDT [facility] eGFR by CKD-EPI >90 >=90 mL/min/1.7 3 m2 03/27/2025 2:23 PM CDT [facility] Blood BLOOD SPECIMEN / Unknown Venipuncture / Unknown 03/27/2025 2:00 PM CDT 03/27/2025 2:06 PM CDT us Karri Perez MD LAB - CHEMISTRY ORDERABLES Fin al Result [facility] [address] [place] [address] * ECHO COMPLETE (03/14/2025 2:08 PM CDT) AV area index 0.93 cm /m [facility] Dimensionless Index 0.602 unitless [facility] LA area A4C 23.6 cm [facility] LA AREA (2C) 20.4 cm [facility] Myocardial strain charge 2 unitless [facility] IVSd 2D 1.128 cm [facility] I PACS LVIDd 4.423 cm [facility] CV [facility] I PACS LVIDs 2.699 cm [facility] I PACS LVOT diam 2.05 cm [facility] I PACS LVPWd 1.099 cm [facility] I PACS LV biplane EF 72.116 % [facility] PACS LV A2C EF 75.801 % [facility] I PACS LV A4C EF 70.745 % [facility] I PACS LV EDV A2C 197.562 ml [facility] FU JI PACS LV EDV A4C 199.714 ml [facility] JI PACS LV ESV A2C 47.808 ml [facility] JI PACS LV ESV A4C 58.426 ml [facility]U JI PACS LVOT pk grad 4.202 mmHg [facility] LV[facility] pk micah 108.148 cm/s [facility] F UJI PACS LVOT VTI 21.335 cm [facility] CV [facility] I PACS LA size 4.363 cm [facility] I PACS AV area pk micah 1.861 cm [facility] area cont VTI 1.986 cm [facility] AV pk grad 12.803 mmHg [facility] FU JI PACS AV mn grad 6.33 mmHg [facility] FU JI PACS AV pk micah 191.766 cm/s [facility] CV [facility] I PACS AV VTI 35.454 cm [facility] I PACS MV A pk micah 100.343 cm/s [facility] F UJI PACS MV E pk micah 104.096 cm/s [facility] F UJI PACS PV pk micah 121.233 cm/s [facility] CV [facility] I PACS Anatomical Region Laterality Modality Ultrasound [...] 1:21 PM Patient Status: O/P Study Site: [facility] Primary Location: [facility] EStudy Info Exam Type: ECHO COMPLETE Indications Z3A.27 - 27 weeks gestation of (HCC) R01.1 - Heart murmur during (HCC) O26.899 - Heart murmur during (HCC) Procedure(s) * A complete 2D, color Doppler, spectral Doppler, and M-Mode transthoracic echocardiogram was performed. Reason for Technically Difficult Study: body habitus Staff Referring Physician: Srinivasan Blankenship Ordering Provider: Srinivasan Blankenship Attending Physician: Srinivasan Blankenship Biometrics Technician: Kaylie He Left Ventricle The left ventricle [...] 1:21 PM Patient Status: O/P Study Site: [facility] Primary Location: [facility] EStudy Info Exam Type: ECHO COMPLETE Indications Z3A.27 - 27 weeks gestation of (HCC) R01.1 - Heart murmur during (HCC) O26.899 - Heart murmur during (HCC) Procedure(s) * A complete 2D, color Doppler, spectral Doppler, and M-Modetransthoracic echocardiogram was performed. Reason for Technically Difficult Study: body habitus Staff Referring Physician: Srinivasan Blankenship Ordering Provider: Srinivasan Blankenship Attending Physician: Srinivasan Blankenship Biometrics Technician: Kaylie He Left Ventricle The left ventricle [...] (Bezet) 463 ms [facility]USE Calculated P [place] 47 degrees [facility] Calculated R [place] 40 degrees [facility] Calculated T [place] 29 degrees [facility] Interpretation EKG SINUS TACHYCARDIA WITH OCCASIONAL PREMATURE VENTRICULAR COMPLEXES NONSPECIFIC T WAVE ABNORMALITY ABNORMAL ECG NO PREVIOUS ECGS AVAILABLE Confirmed by MD NICOLAS, JEFFREY ([id number]) on 03/14/2025 5:49:52 PM [facility] 03/14/2025 1:10 PM CDT 03/14/2025 5:49 PM CDT us Srinivasan Blankenship MD ECG ORDERABLES Edited Result - Final [facility] MUSE * ECHO COMPLETE CG (03/14/2025 10:25 [...] 03/14/2025 Exam Date/Time: 03/14/2025 8:36 AM Site: [facility] Current Location: CARE EStaffOrdering Provider: Srinivasan Blankenship Interpreting Physician: Joselyn Flanagan MD Biometrics Technician: [facility] - FE Study Info Procedure: ECHO COMPLETE [...] 03/14/2025 Exam Date/Time: 03/14/2025 8:36 AM Site: [facility] Current Location: CARE EStaffOrdering Provider: Srinivasan Blankenship Interpreting Physician: Joselyn Flanagan MD Biometrics Technician: Tara Haas [facility] - FE Study Info Procedure: ECHO COMPLETE [...] Joselyn Flanagan MD on 03/14/2025 04:39 PM Srinivasan Blankenship MD ECHO [facility] Final Result * SONOGRAM - COMPLETE (03/06/2025 3:56 PM CDT) Only the most recent of2 [...] 4 lb 4 oz EFW by [place]lock ([id number]) accelerated Growth Overview Exam date GA BPD [...] Thorax RVOT view. LVOT view. 3-vessel view. 5-vaohie-hqjjmdd view. Situs. Bicaval view. Diaphragm. Abdomen Cord [...] as scheduled on 03/14/25 Coding ====== Procedures 55702: US Preg Uterus Follow Up [employer] PACS Anatomical Region Laterality Modality Other 03/06/2025 3:56 PM CDT Niki Natarajan MD [facility] ORDERABLES Edited Result - Final from Last 3 Months Insurance [facility]
--- OUTSIDE RECORDS SUMMARY | 2025-04-21 16:03 | XMS_ITS | Clinical Summary ---
Author Organization [facility] Address [address] [place] [address] Phone Care Team Providers Care Auto Battery Builder Name Role Phone Lashon Rees MD Primary Care Provider [phone] Allergies Active Allergy Reactions Criticality Noted Date [...] Active fluticasone 50 MCG/ACT NA SUSP 1 [place] by Nasal route 2 times daily. 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
[2025-04-21 16:46] LABS: Hematocrit 32.8 % (37.0-47.0); Hemoglobin 10.6 g/dL (12.0-15.0); Immature Granulocyte Percent A 0.8 % (0-0.5); Lymphocytes Absolute Auto 1.90 K/mm3 (0.9-3.2); Mean Corpuscular HGB Conc 32.3 g/dl (32-36); Mean Corpuscular Hemoglobin 26.1 pg (26-34); Mean Corpuscular Volume 80.8 fl (80-100); Nucleated Red Blood Cells Absolute Auto 0.000 K/mm3 (0.0-0.012); Nucleated Red Blood Cells Perc 0.0 % (0.0-0.2); Platelet Count Result 245 k/mm3 (150-375); Red Blood Count 4.06 M/mm3 (4.2-5.4); White Blood Count 10.3 K/mm3 (4.5-10.0)
[2025-04-21] MEDS: DINOPROSTONE 10 MG VAG INSERT VAGINAL (16:56)
--- NOTE | 2025-04-21 17:11 | LDADM ---
This patient, Irina Garcia, was admitted to Labor/Delivery/Recovery 107 on 04/21/25 at 15:57. Plans for labor, pain management and were discussed with patient. Patient/family oriented to hospital policies and general routines including ID bracelet, bed and alarms, visiting hours, pain management, procedures, bathroom and other care routines, personal items, smoking policy, room service/diet and guest tray routines, security routines, and visiting hours. Patient/Family are encouraged to report perceived risks to care and to ask questions if they do not understand what they are told or what they should do. See OBIX for further documentation.
[2025-04-21 17:17] LABS: Alanine Aminotransferase 13 U/L (6-35); Albumin Level 3.6 g/dL (3.5-5.1); Alkaline Phosphatase 77 U/L (38-126); Anion Gap 8 mmol/L (4-12); Aspartate Amino Transferase 30 U/L (14-36); Bilirubin,Total 0.7 mg/dL (0.2-1.3); Blood Urea Nitrogen 6 mg/dL (7-17); Calcium 9.7 mg/dL (8.4-10.2); Carbon Dioxide 18 mmol/L (22-30); Chloride 108 mmol/L (98-107); Estimated Glomerular Filt Rate > 60; Glucose 99 mg/dL (65-110); Potassium 4.1 mmol/L (3.4-5.0); Sodium 134 mmol/L (137-145); Total Protein 6.4 g/dL (6.3-8.2); Uric Acid 3.1 mg/dL (2.5-7.5)
[2025-04-21 17:32] LABS: Syphilis IgG/IgM Antibody Non-Reactive (Nonreactive)
[2025-04-21 17:43] LABS: HIV 1/2 Ab P24 Ag Result Negative (Negative)
[2025-04-21] MEDS: LABETALOL HCL 100 MG TABLET 200 MG PO (21:41)
--- NOTE | 2025-04-21 22:17 | PM.IMHP ---
H&P: HPI History of Present Illness Date/Time: 04/21/25 22:17 Chief Complaint: Intrauterine at term CHTN with superimposed preeclampsia without severe features Narrative: 19 yo who presents at 37w0d for IOL for CHTN with superimposed preeclampsia. Patient has been on labetalol for BP control. also complicated by obesity and asthma. Review of Systems Cardiovascular: Cardiovascular: Denies chest pain, Denies leg edema, Denies palpitations, Denies dyspnea and Denies dyspnea on exertion Respiratory: Respiratory: Denies cough, Denies dyspnea and Denies dyspnea on exertion Gastrointestinal: Gastrointestinal: Denies abdominal pain, Denies constipation, Denies diarrhea, Denies nausea and Denies vomiting Genitourinary: Genitourinary: Denies hematuria, Denies urinary frequency, Denies dysuria, Denies pelvic pain, Denies urinary incontinence and Denies vaginal discharge Neurologic: Reports system reviewed and no additional complaints, except as documented Psychiatric: Psychiatric: Reports no additional psychiatric complaints Endocrine: Endocrine: Denies palpitations PMFSH Past Medical History Medical History Heart murmur Asthma Surgical History Surgical History History of placement of ear tubes History of tonsillectomy S/P cholecystectomy Family History Family History Mother Diabetes mellitus Hypertension Sibling Asthma Social History Social History Smoking status: Never smoker Alcohol intake: never Substance use: never Substance use type: does not use Do You Feel Safe in your Home?: Yes Lack of Transportation: No Lack of Food: Never True Current Housing: I Have Housing Concerned About Future Housing: No Difficulty Paying Gas/Electric Bills: No Difficulty Paying for Meds: No Currently Unemployed: No Education: High School Diploma/GED Difficulty w/ Childcare or Family Care: No Living arrangements: with family Occupation/Education: occupation Gender identity (if verbalized by the patient): Female Sexual Orientation (if Verbalized by the Patient): Straight or Heterosexual Spiritual care concerns: No Meds Home Medications and Allergies Home Medications ?Medication ?Instructions ?Recorded ?Confirmed ?Type albuterol 90 mcg/actuation aerosol 90 mcg inhalation Q4H PRN 11/02/24 04/21/25 History inhaler shortness of breath vits no.126-ferrous fum 1 tablet PO DAILY 11/02/24 04/21/25 History 28 mg iron-folic acid 800 mcg tablet (Classic ) labetalol 200 mg tablet 200 mg PO Q12H #90 tabs 04/10/25 04/21/25 Rx Allergies Allergy/AdvReac Type Severity Reaction Status Date / Time No Known Allergies Allergy Verified 04/21/25 20:47 Vital Signs Vital Signs - 24 hr 04/21/25 16:15 04/21/25 16:58 04/21/25 17:31 Temperature Pulse Rate 102 H 94 Blood Pressure 147/83 H 144/86 H Oxygen Delivery Room Air 04/21/25 17:56 04/21/25 18:01 04/21/25 18:31 Temperature 98.7 F Pulse Rate 94 92 Blood Pressure 142/78 H 142/90 H Oxygen Delivery 04/21/25 21:40 04/21/25 21:41 Temperature Pulse Rate 104 H 104 H Blood Pressure 143/65 H Oxygen Delivery Exam Const: General: no acute distress Eyes: EOM: EOMs intact bilaterally Neck: Neck: supple Thyroid: thyroid normal Chest: Breast/axilla inspection: normal inspection of the breasts Breast/axilla palpation: normal palpation of the breasts, normal palpation of the axillae and no axillary lymphadenopathy Resp: Effort & Inspection: normal respiratory effort Auscultation: clear to auscultation bilaterally Cardio: Rate: regular rate Rhythm: regular rhythm GI: Inspection: non-distended and other (Gravid) GI Palp: Yes Soft to palpation, No Tenderness to palpation present (GI) and No Guarding due to palpation present (GI) Auscultation: normal bowel sounds : Speculum Exam - Vagina: No vaginal bleeding OB/external & speculum: external exam normal; No vaginal bleeding Skin: General skin exam: normal color and no rashes or lesions noted Neuro: Cognition (Neuro): normal cognition Speech: normal speech Extrem: General: normal to inspection Psych: Mental Status: mental status grossly normal Affect: normal affect H&P: Results Labs Labs: Short CBC 04/21/25 Range/Units 16:17 WBC 10.3 H (4.5-10.0) K/mm3 Hgb 10.6 L (12.0-15.0) g/dL Hct 32.8 L (37.0-47.0) % Plt Count 245 (150-375) k/mm3 BMP 04/21/25 16:17 Sodium 134 L Potassium 4.1 Chloride 108 H Carbon Dioxide 18 L BUN 6 L Creatinine 0.38 L Glucose 99 Calcium 9.7 Liver Function 04/21/25 Range/Units 16:17 Total Bilirubin 0.7 (0.2-1.3) mg/dL AST 30 (14-36) U/L ALT 13 (6-35) U/L Alkaline Phosphatase 77 (38-126) U/L Albumin 3.6 (3.5-5.1) g/dL Assessment and Plan Assessment and plan (1) Chronic hypertension with superimposed preeclampsia: Code(s): O11.9 - Pre-existing hypertension with pre-eclampsia, unspecified trimester Status: Acute Assessment and Plan: CHTN managed on labetalol pt developed preeclampsia no severe features IOL at 37 w will plan for cervidil IOL continue to monitor BP, will treat as indicated (2) : Code(s): Z34.90 - Encounter for supervision of normal , unspecified, unspecified trimester Status: Acute Assessment and Plan: 19 yo at 37w0d Rh+ GBS unknown, results pending. will treat in active labor (3) Obesity affecting in third trimester: Code(s): O99.213 - Obesity complicating , third trimester Status: Acute Assessment and Plan: BMI 48 failed early GCT, passed 3 hr GTT (4) Asthma during : Code(s): O99.519 - Diseases of the respiratory system complicating , unspecified trimester; J45.909 - Unspecified asthma, uncomplicated Status: Acute
[2025-04-22] VITALS (148 sets, daily range): BP systolic 95–166; BP diastolic 37–112; PULSE 35–111; TEMP 36.2–37.2; O2SAT 85–100
[2025-04-22] MEDS: LABETALOL HCL 100 MG TABLET 200 MG PO (09:19)
[2025-04-22] MEDS: ONDANSETRON INJ 4 MG/2 ML VIAL IV PUSH ×2 (10:49→21:42)
[2025-04-22] MEDS: OXYTOCIN 30 UNITS/NS 500 ML 30 UNITS/500 ML BAG IV CONT (16:27)
[2025-04-22] MEDS: LACTATED RINGERS 1,000 ML 125 ML IV CONT ×3 (16:28→22:35)
--- NOTE | 2025-04-22 17:01 | WPDANESEPP ---
Anes - Eval Pre Procedure Procedure: labor pain management Date/Time: 04/22/25 17:01 Surgeon: Rex Preop Diagnosis: pain during labor Pre Op Diagnosis: IOL Patient Data Age: 19 Gender: F Height: 1.7 m Weight: 139.5 kg Last Vital Signs Temp 97.1 F L 04/22/25 06:30 Pulse 82 04/22/25 16:46 BP 146/77 H 04/22/25 16:46 O2 Del Method Room Air 04/22/25 07:05 Allergies Allergy/AdvReac Type Severity Reaction Status Date / Time No Known Allergies Allergy Verified 04/21/25 20:47 Home Medications ?Medication ?Instructions ?Recorded ?Confirmed ?Type albuterol 90 mcg/actuation aerosol 90 mcg inhalation Q4H PRN 11/02/24 04/21/25 History inhaler shortness of breath vits no.126-ferrous fum 1 tablet PO DAILY 11/02/24 04/21/25 History 28 mg iron-folic acid 800 mcg tablet (Classic ) labetalol 200 mg tablet 200 mg PO Q12H #90 tabs 04/10/25 04/21/25 Rx Laboratory Tests 04/21/25 04/21/25 16:17 17:48 Sodium 134 L mmol/L (137-145) Potassium 4.1 mmol/L (3.4-5.0) Chloride 108 H mmol/L (98-107) Carbon Dioxide 18 L mmol/L (22-30) Anion Gap 8 mmol/L (4-12) BUN 6 L mg/dL (7-17) Creatinine 0.38 L mg/dL (0.7-1.0) Estim Creat Clear Calc Not Reportable Estimated GFR > 60 (59 - ) Glucose 99 mg/dL (65-110) Uric Acid 3.1 mg/dL (2.5-7.5) Calcium 9.7 mg/dL (8.4-10.2) Total Bilirubin 0.7 mg/dL (0.2-1.3) AST 30 U/L (14-36) ALT 13 U/L (6-35) Alkaline Phosphatase 77 U/L (38-126) Total Protein 6.4 g/dL (6.3-8.2) Albumin 3.6 g/dL (3.5-5.1) Syphilis IgG/IgM Ab Non-reactive (Nonreactive) HIV 1&2 Ab/P24 Ag 4thGn Negative (Negative) Blood Type O Positive Antibody Screen Negative Patient hx anesthesia problems: none Family hx anesthesia problems: none Results Review: All pre-operative results and documents have been reviewed as part of the pre-operative evaluation. [facility] Past Medical History Medical History Heart murmur Asthma Surgical History Surgical History History of placement of ear tubes History of tonsillectomy S/P cholecystectomy Family History Family History Mother Diabetes mellitus Hypertension Sibling Asthma Social History Social History Smoking status: Never smoker Alcohol intake: never Substance use: never Substance use type: does not use Do You Feel Safe in your Home?: Yes Lack of Transportation: No Lack of Food: Never True Current Housing: I Have Housing Concerned About Future Housing: No Difficulty Paying Gas/Electric Bills: No Difficulty Paying for Meds: No Currently Unemployed: No Education: High School Diploma/GED Difficulty w/ Childcare or Family Care: No Living arrangements: with family Occupation/Education: occupation Gender identity (if verbalized by the patient): Female Sexual Orientation (if Verbalized by the Patient): Straight or Heterosexual Spiritual care concerns: No Exam Day of Procedure 04/22/25 17:01 Patient weight: morbidly obese Neurological: alert and oriented
[2025-04-22 17:05] LABS: OBXCEM ROM Plus Positive (Negative)
[2025-04-22] MEDS: AMPICILLIN SODIUM 2 GM in SODIUM CHLORIDE 0.9% IV 100 ML 200 ML IVPB (19:04)
[2025-04-22] MEDS: PHENYLEPHRINE 1,000 MCG/10 ML SYRINGE 100 MCG IV PUSH ×2 (20:04→20:12)
[2025-04-23] VITALS (143 sets, daily range): BP systolic 90–167; BP diastolic 45–128; PULSE 61–172; RESP 16; TEMP 35.9–38.1; O2SAT 90–100
[2025-04-23] MEDS: AMPICILLIN SODIUM 1 GM in SODIUM CHLORIDE 0.9% IV 50 ML 100 ML IVPB (03:12)
[2025-04-23] MEDS: LACTATED RINGERS 1,000 ML 125 ML IV CONT (04:09)
[2025-04-23] MEDS: ONDANSETRON INJ 4 MG/2 ML VIAL IV PUSH (04:17)
--- NOTE | 2025-04-23 06:45 | S_PTH ---
PATIENT: Irina Garcia LOC: [facility] U#:[id number] AGE/SX: 19/F ROOM: 284 RE04/21/[address]: Kyle Goodman MD : 2005 BED: 00 DIS: 04/25/2025 SPEC #: [id number] RECD: 04/24/25 07:35 STATUS: YAZMIN REDalila #: [id number] UMAIR: 04/23/25 06:[address]: Kyle Goodman DEPT: [facility] Surgical RECD BY: Jen Michael ENTERED: 04/24/25 07:36 SP TYPE: Surgical OTHR DR: Suzanne Cyr, Tissues: A - Placenta Procedures: Hematoxylin and Eosin Stain Gross and Microscopic Level 5
--- NOTE | 2025-04-23 07:07 | PM.OBPRVD ---
OB - Vaginal Delivery Note Procedure Delivery date: 04/23/25 Events: Chronic Hypertension and Preeclampsia w/o severe features Induction method: Per Cervidil Protocol Delivery augmentation: Pitocin Delivery monitor: Internal FHT and Internal Uterine Route of delivery: Episiotomy description: None Laceration Description: Perineal - 2nd Degree Delivery repair: vicryl Specimen: Yes (placenta) Quantitative Blood Loss (ml): 200 Anesthesia type: Epidural Disposition: Floor Complications: No immediate complications Narrative: Patient pushed for a spontaneous vaginal delivery. The fetus was delivered atraumatically and placed on the maternal abdomen. The cord was clamped and cut after 1 minute of life. The cord was double clamped and cut and a segment of cord was collected for cord gases. Cord blood was collected for blood type and Coomb's testing. The placenta delivered spontaneously and was noted to be intact. The perineum was inspected and a second degree perineal laceration was noted. The laceration was repaired with 2-0 vicryl in a running fashion. The uterus was firm and good hemostasis was noted. Baby Date of : 04/23/25 Time of : 06:42 Gestational Age by Date: 37 Infant gender: Female Weight (pounds): 7 Weight (ounces): 5 presentation: vertex position: Right Occiput Anterior Placenta delivery description: Spontaneous Cord Vessel Description: 3 Vessels score one minute: 9 score five minutes: 9
[2025-04-23] MEDS: OXYTOCIN 30 UNITS/NS 500 ML 30 UNITS/500 ML BAG 125 UNITS IV CONT (07:10)
[2025-04-23] MEDS: ACETAMINOPHEN 325 MG TABLET 650 MG PO ×3 (07:38→21:06)
[2025-04-23] MEDS: LABETALOL HCL 100 MG TABLET 200 MG PO ×2 (07:38→21:05)
[2025-04-23] MEDS: MULTIVIT/MIN/PREN/FOL AC/IRON TABLET 1 TAB PO (14:57)
[2025-04-23] MEDS: BENZOCAINE 20% AER SPR (*SP) 56 GM CAN 1 SPRAY TOPICAL (14:58)
[2025-04-23] MEDS: IBUPROFEN 600 MG TABLET PO ×2 (14:58→21:05)
--- NOTE | 2025-04-23 15:45 | PC.NURSE ---
1220 Consulted with patient to assess needs related to . Discussed with mother her successes, concerns and any questions she has. We reviewed working with the infant, supporting breast, protecting her nipples with an optimal deep latch, good positioning, and good hand washing. Encouraged understanding the benefits of skin to skin, responding to feeding cues, frequencies of feeding 8-12 times in 24 hours (approximately 2-3 hours), duration of feedings, milk production, intake/output feeding sheet and signs of adequate intake encouraging swallowing at the breast. Reviewed positioning and alignment, supporting breast, off-centered (asymmetrical latch) and leading with the chin with big, open, wide gape. Infant attempted to latch to the [right] breast in [football] position. Education given to the mother of how to visualize the suckling (with good rocking jaw motion) swallows (dropping of the lower jaw) and how to listen for drinking at the breast (the ka sound). The would latch briefly and take a few sucks but was [not able] to maintain, mother is able to hand express and gave many drops of colostrum. Nipple care reviewed with optimal latch, good positioning and using clean hands when touching her breast. Resources used to facilitate learning were used from the [visual handouts/ tool/mom and baby guide]. Mother voiced understanding of the education shared, to call for assistance if the infant does not latch or if there is discomfort with . Reported to the Primary RN. 1520 Mother called out, infant's glucose was checked and was WNL. Mother had baby on her right side in football position but baby would not wake up to latch. Mother had hand expressed again and fed baby drops of colostrum. Mother instructed to put baby skin to skin, watch for feeding cues and try to wake up, call out for assistance if baby will not feed. Primary RN made aware. 1542 [facility], RN back in room to check on mother. Per mother she had continued to hand express and give drops of colostrum but baby would not latch. Grandmother currently holding swaddled infant and mother resting. Will report to Primary RN.
[2025-04-24] VITALS (7 sets, daily range): BP systolic 124–148; BP diastolic 54–84; PULSE 68–89; RESP 16–18; TEMP 36.5–37; O2SAT 97–99
[2025-04-24] MEDS: IBUPROFEN 600 MG TABLET PO ×4 (04:05→22:05)
[2025-04-24] MEDS: ACETAMINOPHEN 325 MG TABLET 650 MG PO ×4 (04:05→22:05)
[2025-04-24 05:08] LABS: Hematocrit 29.2 % (37.0-47.0); Hemoglobin 9.3 g/dL (12.0-15.0)
--- NOTE | 2025-04-24 07:10 | PM.OBPNVD ---
OB - PN: Subj Subjective Date/time seen: 04/24/25 07:10 Patient comments: no complaints, pain well controlled and tolerating diet [place] feeding status: exclusively breast feeding Narrative: patient doing well this AM. No complaints. Pain is well controlled. She reports minimal bleeding. She is ambulating and voiding without difficulty. She is tolerating PO. She denies N/V, fever, chills. OB - PN: Obj Data Labs 04/24/25 04:10 04/21/25 16:17 Labs: Laboratory Results - last 24 hr 04/24/25 04:10 Hgb 9.3 L Hct 29.2 L OB - PN A/P Plan day: 1 Plan: routine care Comments: patient doing well Blood pressures normal to mild range. Will continue to monitor. will hold labetalol at this time Pain well controlled Denies any bleeding concerns H/H 9.12/29, asymptomatic, will continue iron supplementation continue routine care Time Spent With Patient Time: Total time spent is greater than 50% in coordination of care (as documented) at patient's floor/unit and/or counseling patient: Time with patient: less than 15 minutes Review of Systems Review of Systems: All systems reviewed & are unremarkable except as noted in HPI and below Exam Const: General: comfortable and no acute distress Resp: Effort & Inspection: normal respiratory effort Cardio: Rate: regular rate GI: GI Palp: Yes Soft to palpation and No Tenderness to palpation present (GI) Auscultation: normal bowel sounds Other: fundus firm and below umbilicus. Psych: Affect: normal affect
[2025-04-24] MEDS: LABETALOL HCL 100 MG TABLET 200 MG PO ×2 (07:55→21:04)
[2025-04-24] MEDS: DOCUSATE SODIUM 100 MG CAPSULE PO ×2 (07:55→16:18)
--- NOTE | 2025-04-24 09:08 | PC.NURSE ---
Introductions were made, then consulted with patient to assess needs related to . Mother led the conversation with her?plans to feed?her and the?experience so far. Mother is currently with a nipple shield, pumping and supplementing infant with similac formula per maternal preference. Mother had slight difficulty applying the nipple shield independently. Education was provided on application of the nipple shield. Upon entering room, infant was swaddled and being held by FOB. Displayed unwrapping and stimulating infant to wake for feeding. Infant was easy to wake and was given to mother. Mother was able to place infant in the football position independently. Infant latched to the right breast with nipple shield in place and nursed for approximately 5 minutes. Mother states that this is the normal for her and infant and she will supplement with formula after nursing. Discussed paced feeding with parents. Parents understand education and will call this RN for any feedings that require assistance.
--- NOTE | 2025-04-24 12:25 | WPDANLDPN2 ---
Anes-Prog Note L&D Date/Time: 04/24/25 12:25 Comfortable throughout: labor and delivery Neuraxial method: epidural Epidural/Spinal procedure site: clean & non-tender Neuro status: Neuro function grossly intact. Cardiovascular status: normal Respiratory status: normal Airway patency: baseline Mental status: baseline Post-Op hydration status: normal Vital Signs: Last Vital Signs Temp 36.6 C 04/24/25 12:20 Pulse 88 04/24/25 12:20 Resp 18 04/24/25 12:20 BP 133/62 04/24/25 12:20 Pulse Ox 97 04/24/25 12:20 O2 Del Method Room Air 04/24/25 07:45 Pain score (VAS): 10/12 I/O: Intake & Output 04/23/25 04/24/25 04/24/25 23:59 07:59 15:59 Intake Total 2400 1200 Output Total 850 400 Balance 1550 800 Post-procedural complaints: none Patient feedback: Patient satisfied with anesthetic care.
--- NOTE | 2025-04-24 16:49 | PC.NURSE ---
Assisted mother with latching infant with nipple shield in place. Mother handles her infant well but does require minimal assistance with the nipple shield.
[2025-04-25] VITALS: BP 143/69; PULSE 83; RESP 18
[2025-04-25] MEDS: IBUPROFEN 600 MG TABLET PO ×2 (04:41→11:04)
[2025-04-25] MEDS: ACETAMINOPHEN 325 MG TABLET 650 MG PO ×2 (04:42→11:04)
[2025-04-25 04:45] VITALS: BP 136/89; PULSE 100; RESP 18; O2SAT 99
--- NOTE | 2025-04-25 07:42 | PM.OBDSVD ---
DS: Admitting Diagnosis Discharge Date 04/25/25 Admitting Diagnosis intrauterine at term Chronic hypertension with superimposed preeclampsia without severe features Obesity in OB - DS: Summary Hospital Course Hospital Course: 19-year-old who presented at 37 weeks for induction of labor due to chronic hypertension with superimposed preeclampsia. Patient progressed to complete dilation and had an uncomplicated spontaneous vaginal delivery. Her course was uncomplicated. Blood pressures remain controlled with labetalol. Patient was discharged home in stable condition on day 2. OB Procedures : None OB Procedures Intrapartum: Spontaneous Vag Delivery OB Procedures: : None Peripartum Data Laceration Description: Perineal - 2nd Degree Episiotomy description: None Status at Discharge Functional status at discharge: independent ambulation Overall status at discharge: patient is back to baseline Time Spent with Patient Time attestation: Total time spent providing and/or coordinating discharge services: Time spent: Less than 30 minutes Exam Const: General: comfortable and no acute distress Resp: Effort & Inspection: normal respiratory effort Auscultation: clear to auscultation bilaterally Cardio: Rate: regular rate GI: GI Palp: Yes Soft to palpation Auscultation: normal bowel sounds Other: Fundus firm below umbilicus Psych: Appearance: grossly normal Mental Status: mental status grossly normal Affect: normal affect DS: Data Data Completed and Pending Pending studies at discharge: Pending at discharge 04/23/25 06:45 Surgical [PTH] Routine Discharge Plan Discharge Discharging Clinician: Kyle Goodman Patient Disposition: Home Activity: as tolerated and pelvic rest Diet: regular Patient Instructions: Antibiotic Form, Preeclampsia and Eclampsia After Delivery (GEN), Vaginal Delivery (DC) Patient Language: Greenlandic Stand Alone Forms: General Discharge Information Follow-up/Referrals: Kyle Goodman MD [Physician] - 1 Week (Blood Pressure check) Discharge Medications: New ferrous sulfate 325 mg (65 mg iron) tablet 325 mg PO DAILY Qty: 90 0RF ibuprofen 600 mg tablet 600 mg PO Q6H PRN (Reason: pain) Qty: 30 0RF acetaminophen 500 mg tablet 500 mg PO Q6H PRN (Reason: pain) Qty: 30 0RF sennosides-docusate sodium [Senna with Docusate Sodium] 8.6-50 mg tablet 1 tab-cap PO HS Qty: 60 0RF Continued labetalol 200 mg tablet 200 mg PO Q12H Qty: 90 0RF albuterol 90 mcg/actuation aerosol 90 mcg inhalation Q4H PRN (Reason: shortness of breath) Classic 28 mg iron- 800 mcg tablet 1 tablet PO DAILY Date of admission: 04/21/25 15:57 Primary Care Provider: Ger,Suzanne Carballo Admitting Provider: Kyle Goodman Attending physician on admission: Kyle Goodman Condition: Stable
[2025-04-25 07:55] VITALS: BP 128/64; PULSE 90; RESP 18; TEMP 36.2; O2SAT 98
--- NOTE | 2025-04-25 08:23 | PC.NURSE ---
Consulted with mother concerning needs and she shared her ability to independently latch infant optimally without pain. Mother also feels confident with using her breastpump. Mother is feeding appropriately for growth of and understands stimulating to eat if needed. has had appropriate feedings in the last 24 hours meets the outcomes for weight, output, blood sugar and jaundice at this time. Reinforced understanding of milk production, transition of milk, signs of adequate intake, transition of stool, prevention/relief of engorgement, plugged ducts, mastitis, responsive watching for feeding cues, the different methods of stimulating infant to breastfeed 1-3 hours after the start of the last feeding, community resources, and when to call a provider using the resource of the feeding sheet along with the mom and baby guide. Mother voiced understanding of the information shared, is confident to continue effectively her at home, when to call for assistance, denies any additional assistance or education at this time. Reported to the Primary RN.
[2025-04-25 09:17] VITALS: PULSE 90
[2025-04-25] MEDS: LABETALOL HCL 100 MG TABLET 200 MG PO (09:17)
[2025-04-25] MEDS: DOCUSATE SODIUM 100 MG CAPSULE PO (09:17)
[2025-04-25] MEDS: MULTIVIT/MIN/PREN/FOL AC/IRON TABLET 1 TAB PO (09:17)
[2025-04-25 09:23] VITALS: PULSE 90; RESP 18; O2SAT 98
--- NOTE | 2025-04-25 10:18 | PC.NURSE ---
Patient viewed the discharge video Mother & Baby Care, The First Two Weeks. Patient was given the opportunity and encouraged to ask questions. Patient verbalized understanding of information shared and has been given the mother/baby guide for home reference.
[2025-04-26 09:34] VITALS: BP 123/74; PULSE 80; RESP 18; TEMP 36.7; O2SAT 100
== END 2025-04-25 12:30 | disposition home or self-care (01) | DRG 560 ==
LOC: ANHLDR 16:02 → ANHOB2 04-23 11:50
PROVIDERS: Admitting Provider Student in an Organized Health Care Education/Training Program; PCP Family Medicine; Visit Provider Student in an Organized Health Care Education/Training Program
DX: O11.4 Pre-existing hypertension with pre-eclampsia, complicating childbirth (principal); Z37.0 Single live birth; Z3A.37 37 weeks gestation of pregnancy; O99.214 Obesity complicating childbirth; O99.52 Diseases of the respiratory system complicating childbirth; J45.909 Unspecified asthma, uncomplicated; O70.1 Second degree perineal laceration during delivery
CPT/HCPCS: 36415; 80053; 84112; 84550; 85014; 85018; 85025; 86593; 86703; 86850; 86900; 86901; 88307; A9270; G0432; J0290; J2371; J2405; J2590; J2795; J7120

== ENCOUNTER 2025-04-30 14:35 | Outpatient (CLI) | payer OTHER, SELFPAY ==
--- OUTSIDE RECORDS SUMMARY | 2025-04-30 14:41 | XMS_ITS | Clinical Summary ---
Author Organization [facility] Address [address] [place] [address] Phone Care Team Providers Care Pulling Unit Operator Name Role Phone Lashon Rees MD Primary Care Provider [phone] Allergies Active Allergy Reactions Criticality Noted Date [...] Active fluticasone 50 MCG/ACT NA SUSP 1 [place] by Nasal route 2 times daily. 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
--- OUTSIDE RECORDS SUMMARY | 2025-04-30 14:41 | XMS_ITS | Clinical Summary ---
Author Organization [email or web address] Address [address] [place] [address] Care Team Providers Care Converting Technician Name Role Phone Unavailable Primary Care Provider Unavailabl e Source Comments Re [facility],non-owned Affiliates and Associated Physician Practices is amultiple site organization consisting of ambulatory clinics and hospital sitesin [place], [place], [place] and [place]. This disclosure is being madepursuant to the Care Everywhere program and may not contain all information available regarding this patient. Last updated 18.Re [facility] Allergies No known active allergies Medications * [...] 11:59 PM CDT Hospital Encounter [facility] [address] [place] [phone] Abiola Diamond MD Discharge Disposition: Home or Self Care 04/10/2025 1:43 PM CDT - 04/10/2025 11:59 PM CDT Hospital Encounter [facility] [address] [place] [phone] Abiola Diamond MD Discharge Disposition: Home or Self Care 04/03/2025 1:45 PM CDT - 04/03/2025 11:59 PM CDT Hospital Encounter [facility] [address] [place] [phone] Srinivasan Blankenship MD Discharge Disposition: Home or Self Care 03/29/2025 Telephone [facility] [address] [place] [phone] Daniela Gonsales, RN Update (Called to check in on patient who was seen for preeclamptic evaluation at [facility] on 03/27/25. No answer/busy. Will try again later. ) 03/27/2025 1:36 PM CDT - 03/27/2025 4:19 PM CDT Hospital Encounter [facility] [address] [place] [address] Karri Perez MD Discharge Disposition: Home or Self Care 03/27/2025 Telephone [facility] [address] [place] [phone] Daniela Gonsales RN Update 03/27/2025 Telephone [facility] [address] [place] [phone] Daniela Gonsales, RN Update (Called Dr. Goodman's office and spoke with Erica regarding patient's calling this am with pre eclampsia sxs. ) 03/27/2025 Telephone [facility] [address] [place] [phone] Daniela Gonsales, RN Returned Call (Returned call to patient's spouse.) 03/27/2025 Telephone [facility] [address] [place] [phone] Daniela Gonsales, HUDSON Question (FOB called due to patient being symptomatic for preeclampsia and hoping for IOL ) 03/20/2025 12:40 PM CDT - 03/20/2025 11:59 PM CDT Hospital Encounter [facility] [address] [place] [phone] Srinivasan Blankenship MD Discharge Disposition: Home or Self Care 03/14/2025 1:12 PM CDT - 03/14/2025 11:59 PM CDT Hospital Encounter [facility] [address] [place] [phone] Srinivasan Blankenship MD Discharge Disposition: Home or Self Care 03/14/2025 1:00 PM CDT - 03/14/2025 1:11 PM CDT Hospital Encounter [facility] [address] [place] [phone] Srinivasan Blankenship MD Discharge Disposition: Home or Self Care 03/14/2025 9:29 AM CDT - 03/14/2025 12:59 PM CDT Hospital Encounter [facility] Care [address] [address] Joselyn Flanagan MD Buchanan, Christopher Q, MD DATA CENTER MANAGER Discharge Disposition: Home or Self Care 03/14/2025 8:28 AM CDT - 03/14/2025 9:28 AM CDT Hospital Encounter [facility] [place] [address] [place] [phone] Joselyn Flanagan MD 03/14/2025 8:28 AM CDT Hospital Encounter [facility] [address] [address] Joselyn Flanagan MD Discharge Disposition: Home or Self Care 03/06/2025 2:30 PM CDT - 03/06/2025 11:59 PM CDT Hospital Encounter [facility] [address] [place] [phone] Head, Katlyn Tai MD Discharge Disposition: Home or Self Care 03/01/2025 Telephone [facility] [address] [place] [phone] Daniela Gonsales RN Results (NIPT results. LM for patient to . ) 02/18/2025 Telephone [facility] [address] [place] [phone] Daniela Gonsales RN Future Appointment (Called patient to review EKG/ECHO appt scheduled at [facility] with date/time/address and Neurology to call. ) 02/15/2025 Travel 02/13/2025 1:02 PM CDT - 02/13/2025 11:59 PM CDT Hospital Encounter [facility] [address] [place] [phone] Srinivasan Blankenship MD Discharge Disposition: Home or Self Care 02/13/2025 1:00 PM CDT - 02/13/2025 1:01 PM CDT Hospital Encounter [facility] [address] [place] [phone] Srinivasan Blankenship MD Discharge Disposition: Home or Self Care 01/30/2025 11:59 PM CDT Hospital Encounter [facility] [address] [place] [phone] Srinivasan Blankenship MD Discharge Disposition: Home or [...] and heating? Not hard at all 03/27/2025 [facility] [place] [facility] Occupat ional [facility] - Occupational Stress [...] any time in the past [facility], were you homeless or living in a alf (including now)? 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 Gender Identity Not on file Sexual Orientation [...] st Contact Info) Description 03/03/2026 Hospital Encounter [facility] [address] [place] [address] Health Maintenance Due Date Last Done Comments [...] Induction scheduled for 04/21/2025 Coding ====== Procedures 82401: Biophysical Profile W NST H [facility] PACS Anatomical Region Laterality Modality Other 04/17/2025 3:07 PM CDT Niki Natarajan MD [facility] ORDERABLES Edited Result - Final * [...] 03/27/2025 3:28 PM CDT [facility] Specific [place] UA 1.012 1.005 - 1.030 03/27/2025 3:28 [...] Trace(A) None Seen 03/27/2025 3:28 PM CDT [facility] Squamous Epithelial Cells 3-5 0 - 5 /hpf 03/27/2025 3:28 PM CDT [facility] Mucus UA 1+ /LPF 03/27/2025 3:28 PM CDT [facility] Reflex Status Culture to follow 03/27/2025 3:28 PM CDT [facility] Urine URINE SPECIMEN OBTAINED BY CLEAN CATCH PROCEDURE / Unknown Collection / Unknown 03/27/2025 2:28 PM CDT 03/27/2025 2:45 PM CDT Narrative [facility] - 03/27/2025 3:28 PM CDT Karri Perez MD LAB - URINALYSIS ORDERABLES Fi nal Result Performing Organization Address City/[facility] [address]/ZIP Co de Phone Number [facility] [address] [place] [address] * CULTURE URINE (03/27/2025 2:28 PM CDT) Culture Urine <10,000 CFU/mL urogenital glory ANTONIO 03/29/2025 12:06 AM CDT [facility] Urine URINE SPECIMEN OBTAINED BY CLEAN CATCH PROCEDURE / Unknown Collection / Unknown 03/27/2025 2:28 PM CDT 03/27/2025 2:45 PM CDT Karri Perez MD LAB - MICROBIOLOGY ORDERABLES Final Result Performing Organization Address City/[facility] [address]/ZIP Co de Phone Number [facility] [address] [place] [address], [facility] [phone] * (ABNORMAL) PROTEIN CREATININE RATIO URINE RANDOM PNL (03/27/2025 2:28 PM CDT) Protein Urine 12.3(H) <11.9 mg/dL 03/27/2025 3:36 PM CDT [facility] Creatinine Urine 91.42 mg/dL 03/27/2025 3:36 PM CDT [facility] Protein/Creatin ine Ratio Urine 0.13 03/27/2025 3:36 PM CDT [facility] Urine URINE SPECIMEN OBTAINED BY CLEAN CATCH PROCEDURE / Unknown Collection / Unknown 03/27/2025 2:28 PM CDT 03/27/2025 2:45 PM CDT Karri Perez MD LAB - URINE CHEMISTRY ORDERABL ES Final Result [facility] [address] [place] [address] * (ABNORMAL) CBC W AUTO DIFFERENTIAL (03/27/2025 2:00 PM CDT) WBC 11.2(H) 4.0 - 10.7 x10E9/L 03/27/2025 2:09 PM CDT [facility] RBC Count 3.93 3.90 - 5.20 x10E12/L 03/27/2025 2:09 PM CDT [facility] Hemoglobin 10.8(L) 11.9 - 15.8 g/dL 03/27/2025 2:09 PM CDT [facility] Hematocrit 32.6(L) 34.8 - 46.1 % 03/27/2025 2:09 PM CDT [facility] MCV 83.0 80.0 - 98.0 fL 03/27/2025 2:09 PM CDT [facility] MCH 27.5 26.7 - 33.6 pg 03/27/2025 2:09 PM CDT [facility] MCHC 33.1 31.7 - 36.3 g/dL 03/27/2025 2:09 PM CDT [facility] RDW-CV 13.8 11.3 - 14.8 % 03/27/2025 2:09 PM CDT [facility] Platelet Count 239 150 - 420 x10E9/L 03/27/2025 2:09 PM CDT [facility] MPV 10.4 7.8 - 11.4 fL 03/27/2025 2:09 PM CDT [facility] Neutrophil % 78.1(H) 41.0 - 74.0 % 03/27/2025 2:09 PM CDT [facility] Lymphocyte % 15.2(L) 17.0 - 47.0 % 03/27/2025 2:09 PM CDT [facility] Monocyte % 4.1 3.0 - 11.0 % 03/27/2025 2:09 PM CDT [facility] Eosinophil % 1.4 0.0 - 7.0 % 03/27/2025 2:09 PM CDT [facility] Basophil % 0.3 0.0 - 1.6 % 03/27/2025 2:09 PM CDT [facility] Immature Granulocytes % 0.9 0.0 - 1.0 % 03/27/2025 2:09 PM CDT [facility] Neutrophil Absolute 8.77(H) 1.60 - 7.50 x10E9/L 03/27/2025 2:09 PM CDT [facility] Lymphocyte Absolute 1.71 1.00 - 4.40 x10E9/L 03/27/2025 2:09 PM CDT [facility] Monocyte Absolute 0.46 0.15 - 1.00 x10E9/L 03/27/2025 2:09 PM CDT [facility] Eosinophil Absolute 0.16 0.00 - 0.60 x10E9/L 03/27/2025 2:09 PM CDT [facility] Basophil Absolute 0.03 0.00 - 0.13 x10E9/L 03/27/2025 2:09 PM CDT [facility] Blood BLOOD SPECIMEN / Unknown Venipuncture / Unknown 03/27/2025 2:00 PM CDT 03/27/2025 2:06 PM CDT Karri Perez MD LAB - HEMATOLOGY ORDERABLES Fi nal Result [facility] [address] [place] [address] * (ABNORMAL) COMPREHENSIVE METABOLIC PANEL (03/27/2025 2:00 PM CDT) [facility] Glucose 119(H) 70 - 99 mg/dL 03/27/2025 2:23 PM CDT [facility] Sodium 139 136 - 145 mmol/L 03/27/2025 2:23 PM CDT [facility] Potassium 3.5 3.5 - 5.1 mmol/L 03/27/2025 2:23 PM CDT [facility] Chloride 112(H) 98 - 107 mmol/L 03/27/2025 2:23 PM CDT [facility] CO2 18(L) 22 - 29 mmol/L 03/27/2025 2:23 PM CDT [facility] Calcium 8.7 8.4 - 10.4 mg/dL 03/27/2025 2:23 PM CDT [facility] Anion Gap 9 6 - 16 mmol/L 03/27/2025 2:23 PM CDT [facility] BUN 6 5.3 - 18.7 mg/dL 03/27/2025 2:23 PM CDT [facility] Creatinine 0.55(L) 0.57 - 1.11 mg/dL 03/27/2025 2:23 PM CDT [facility] Alkaline Phosphatase 77 40 - 150 U/L 03/27/2025 2:23 PM CDT [facility] ALT 6 6 - 57 U/L 03/27/2025 2:23 PM CDT [facility] AST 11 10 - 48 U/L 03/27/2025 2:23 PM CDT [facility] Protein Total 6.3(L) 6.4 - 8.3 gm/dL 03/27/2025 2:23 PM CDT [facility] Albumin 3.0(L) 3.1 - 4.5 gm/dL 03/27/2025 2:23 PM CDT [facility] Bilirubin Total 0.3 0.2 - 1.2 mg/dL 03/27/2025 2:23 PM CDT [facility] eGFR by CKD-EPI >90 >=90 mL/min/1.7 3 m2 03/27/2025 2:23 PM CDT [facility] Blood BLOOD SPECIMEN / Unknown Venipuncture / Unknown 03/27/2025 2:00 PM CDT 03/27/2025 2:06 PM CDT us Karri Perez MD LAB - CHEMISTRY ORDERABLES Fin al Result [facility] [address] [place] [address] * ECHO COMPLETE (03/14/2025 2:08 PM CDT) [...] I PACS LVIDd 4.[address] [facility] I PACS LVIDs 2.[address] [facility] I PACS LVOT diam 2.[address] [facility] I PACS LVPWd 1.099 [address] [facility] I PACS LV biplane EF 72.116 % [facility] FUJI PACS LV A2C EF 75.801 % [facility] I PACS LV A4C EF 70.745 % [facility] I PACS LV EDV A2C 197.562 ml [facility] CV FU JI PACS LV EDV A4C 199.714 ml [facility] CV FU JI PACS LV ESV A2C 47.808 ml [facility] CV FU JI PACS LV ESV A4C 58.426 ml [facility] CV FU JI PACS LVOT pk grad 4.[address] [facility] LVOT pk micah 108.148 cm/s [facility] CV F UJI PACS LVOT VTI 21.[address] [facility] [address] [facility] I PACS LA size 4.363 cm [facility] I PACS AV area pk micah 1.[address] [facility] area cont VTI 1.986 [address] [facility] AV pk grad 12.803 mmHg [facility] CV FU JI PACS AV mn grad 6.33 mmHg [facility] CV FU JI PACS AV pk micah 191.766 cm/s [facility] I PACS AV VTI 35.[address] [facility] [address] [facility] I PACS MV A pk micah 100.343 cm/s [facility] CV F UJI PACS MV E pk micah 104.096 cm/s [facility] CV F UJI PACS PV pk micah 121.233 cm/s [facility] I PACS Anatomical Region [...] 1:21 PM Patient Status: O/P Study Site: [facility] Primary Location: [facility] EStudy Info Exam Type: ECHO COMPLETE Indications Z3A.27 - 27 weeks gestation of (HCC) R01.1 - Heart murmur during (HCC) O26.899 - Heart murmur during (HCC) Procedure(s) * A complete 2D, color Doppler, spectral Doppler, and M-Mode transthoracic echocardiogram was performed. Reason for Technically Difficult Study: body habitus Staff Referring Physician: Srinivasan Blankenship Ordering Provider: Srinivasan Blankenship Attending Physician: Srinivasan Blankenship Visual Communications Instructor: Kaylie He Left Ventricle The left ventricle [...] 1:21 PM Patient Status: O/P Study Site: [facility] Primary Location: [facility] EStudy Info Exam Type: ECHO COMPLETE Indications Z3A.27 - 27 weeks gestation of (HCC) R01.1 - Heart murmur during (HCC) O26.899 - Heart murmur during (HCC) Procedure(s) * A complete 2D, color Doppler, spectral Doppler, and M-Modetransthoracic echocardiogram was performed. Reason for Technically Difficult Study: body habitus Staff Referring Physician: Srinivasan Blankenship Ordering Provider: Srinivasan Blankenship Attending Physician: Srinivasan Blankenship Visual Communications Instructor: Kaylie He Left Ventricle The left ventricle [...] (Bezet) 463 ms [facility] MUSE Calculated P [place] 47 degrees [facility] MUSE Calculated R [place] 40 degrees [facility] MUSE Calculated T [place] 29 degrees [facility] Interpretation EKG SINUS TACHYCARDIA WITH OCCASIONAL PREMATURE VENTRICULAR COMPLEXES NONSPECIFIC T WAVE ABNORMALITY ABNORMAL ECG NO PREVIOUS ECGS AVAILABLE Confirmed by MD NICOLAS, JEFFREY ([id number]) on 03/14/2025 5:49:52 PM [facility] MUSE 03/14/2025 [...] 03/14/2025 Exam Date/Time: 03/14/2025 8:36 AM Site: [facility] Current Location: CARE EStaffOrdering Provider: Srinivasan Blankenship Interpreting Physician: Joselyn Flanagan MD Visual Communications Instructor: Tara Haas [facility] - FE Study Info Procedure: [...] 03/14/2025 Exam Date/Time: 03/14/2025 8:36 AM Site: [facility] Current Location: CARE EStaffOrdering Provider: Srinivasan Blankenship Interpreting Physician: Joselyn Flanagan MD Visual Communications Instructor: Tara Haas [facility] - FE Study Info [...] 03/14/2025 04:39 PM Srinivasan Blankenship MD ECHO [facility] Final Result * SONOGRAM - COMPLETE [...] Amount of AF: normal. MVP 6.1 cm. EMERSNO 15.6 cm. Q1 6.1 cm, Q2 3.0 [...] 4 lb 4 oz EFW by Hadlock ([id number]) accelerated Growth Overview Exam date [place] BPD [...] Thorax RVOT view. LVOT view. 3-vessel view. 9-gguftv-jktudyb view. Situs. Bicaval view. Diaphragm. Abdomen Cord [...] as scheduled on 03/14/25 Coding ====== Procedures 73350: US Preg Uterus Follow Up [employer] PACS Anatomical Region Laterality Modality Other 03/06/2025 3:56 PM CDT Niki Natarajan MD [facility] ORDERABLES Edited Result - Final from Last 3 Months Insurance [facility]
[2025-04-30 14:51] VITALS: BP 147/78; PULSE 80
[2025-04-30 15:01] VITALS: BP 153/89; PULSE 81
[2025-04-30 15:16] VITALS: BP 142/65; PULSE 77
[2025-04-30 15:21] LABS: Hematocrit 32.3 % (37.0-47.0); Hemoglobin 10.3 g/dL (12.0-15.0); Immature Granulocyte Percent A 1.1 % (0-0.5); Lymphocytes Absolute Auto 2.41 K/mm3 (0.9-3.2); Mean Corpuscular HGB Conc 31.9 g/dl (32-36); Mean Corpuscular Hemoglobin 26.3 pg (26-34); Mean Corpuscular Volume 82.4 fl (80-100); Nucleated Red Blood Cells Absolute Auto 0.000 K/mm3 (0.0-0.012); Nucleated Red Blood Cells Perc 0.0 % (0.0-0.2); Platelet Count Result 332 k/mm3 (150-375); Red Blood Count 3.92 M/mm3 (4.2-5.4); White Blood Count 8.1 K/mm3 (4.5-10.0)
[2025-04-30 15:30] LABS: Alanine Aminotransferase 17 U/L (6-35); Albumin Level 3.8 g/dL (3.5-5.1); Alkaline Phosphatase 79 U/L (38-126); Anion Gap 6 mmol/L (4-12); Aspartate Amino Transferase 21 U/L (14-36); Bilirubin,Total 0.5 mg/dL (0.2-1.3); Blood Urea Nitrogen 13 mg/dL (7-17); Calcium 9.5 mg/dL (8.4-10.2); Carbon Dioxide 21 mmol/L (22-30); Chloride 106 mmol/L (98-107); Estimated Glomerular Filt Rate > 60; Glucose 91 mg/dL (65-110); Potassium 4.0 mmol/L (3.4-5.0); Sodium 133 mmol/L (137-145); Total Protein 6.7 g/dL (6.3-8.2)
[2025-04-30 15:31] VITALS: BP 152/84; PULSE 78
--- NOTE | 2025-04-30 16:17 | PC.NURSE ---
Dr. Goodman called in, stated he veiwed lab results. Does not think this is a pre-eclamptic issue. discussed BP's 140s/80s Recommends continue with rest, PO hydration and tylenol as needed for headache. Pt. ok to dc.
[2025-04-30 16:35] LABS: Uric Acid 5.8 mg/dL (2.5-7.5)
== END 2025-04-30 16:20 | disposition home or self-care (01) ==
LOC: ANHOBOP 14:38 → ANHOBPP 14:39
PROVIDERS: PCP Family Medicine; Visit Provider Student in an Organized Health Care Education/Training Program
DX: O13.9 Gestational [pregnancy-induced] hypertension without significant proteinuria, unspecified trimester (principal); Z3A.00 Weeks of gestation of pregnancy not specified
CPT/HCPCS: 36415; 80053; 84550; 85025; 99199